=== PATIENT | female | born 1955 | race Caucasian/White ===

== ENCOUNTER 2018-11-13 07:04 | Inpatient (IN) | payer BC ==
--- NOTE | 2018-11-12 15:59 | HP ---
HISTORY AND PHYSICAL: DATE OF SURGERY: 11/13/18 DATE OF OFFICE VISIT: 11/12/18 SURGEON: Kulwant Young MD* (dictated by DELL Gonzalez). PROCEDURE: I and D of the right index finger. CHIEF COMPLAINT: Right second finger infection. HISTORY OF PRESENT ILLNESS: Ms. Kessler is a 62-year-old woman with an infection of the right index finger, which started approximately 9 days ago. She believes she got a piece of plastic or a splinter stuck in her finger. She has been on p.o. clindamycin for the last 3 days without any improvement. PAST MEDICAL HISTORY: Diabetes and high cholesterol. PAST SURGICAL HISTORY: Tubal ligation and a growth removal from her back. CURRENT MEDICATIONS: 1. Metformin. 2. Clindamycin. 3. Percocet. ALLERGIES: KEFLEX causing vomiting. FAMILY HISTORY: Cancer and diabetes. SOCIAL HISTORY: She is a 62-year-old female. She lives alone. She smokes half a pack to a pack of cigarettes a day. Denies the use of drugs. She uses alcohol rarely. REVIEW OF SYSTEMS: A complete 14-point review of systems was reviewed with the patient. It was all negative. She denies the history of DVT, PE, hepatitis, HIV or anesthesia problems. PHYSICAL EXAMINATION GENERAL: She is in no acute distress, nontoxic appearing. HEENT: Normocephalic, atraumatic. NECK: Supple. No palpable lymph nodes. PULMONARY: The lungs are clear to auscultation bilaterally. CARDIAC: Regular rate and rhythm. Strong S1 and S2. ABDOMEN: The abdomen is soft, nontender, and nondistended. NEUROLOGICAL: She is alert and oriented x3. MUSCULOSKELETAL: Right upper extremity, there is some purulent drainage from the right index finger. There have been 2 incisions made over the skin, one proximal and one distal to the DIP joint. There is mild erythema, significant swelling over the finger. There is no streaking into the hand or forearm. The finger is extremely tender to palpation. She is unable to flex at the PIP joint. She has a 2+ distal radius pulse. ASSESSMENT AND PLAN: Ms. Kessler is a 62-year-old female with an infection of her right index finger. It has been unimproved with p.o. clindamycin. We have recommended she go to the hospital today; however, she is unable to go today. She will be there at 7 a.m. for surgery tomorrow with Dr. Young. She is going to undergo an incision and drainage of her right index finger. She will remain n.p.o. after midnight. DELL GONZALEZ [id number]/[facility] #: [id number] KRYS
[~2018-11-13 07:04] MED LIST: Buffered Lidocaine 1% SYRIN* 1 ML/SYRINGE INTRADERM ONE; Lactated Ringers 1000 ML Bag* 1,000 ML IV SCH
[2018-11-13] MEDS ORDERED: Lidocaine 2% PF * 5 ML VIAL ONE (07:17)
[2018-11-13] MEDS ORDERED: Midazolam* 1 MG/ML 2 ML VIAL (2 MG) ONE (07:17)
[2018-11-13] MEDS ORDERED: Propofol* 10 MG/ML 20 ML BTL ONE (07:17)
[2018-11-13] MEDS ORDERED: fentaNYL* 50 MCG/ML 2 ML VIAL (100 MCG VIAL) ONE ×2 (07:18→10:28)
[2018-11-13] MEDS ORDERED: Buffered Lidocaine 1% SYRIN* 1 ML/SYRINGE INTRADERM ONE (07:18)
[2018-11-13] MEDS ORDERED: Clindamycin 900 MG IVPREMIX(* 900 MG/50 ML SDV IV ONE (07:18)
[2018-11-13] MEDS ORDERED: Bupivacaine 0.5%* 50 ML VIAL ONE (07:24)
[2018-11-13] MEDS ORDERED: Bacitracin INJECTION* 50,000 UNITS ONE (07:27)
[2018-11-13] MEDS ORDERED: fentaNYL* 50 MCG/ML 2 ML VIAL (100 MCG VIAL) IV PRN (07:54)
[2018-11-13] MEDS ORDERED: Naloxone* 0.4 MG/ML 1 ML VIAL IV PRN (07:54)
[2018-11-13] MEDS ORDERED: Acetaminophen TAB* 325 MG PO PRN (07:54)
[2018-11-13] MEDS ORDERED: DiMENhydriNATE IV* 50 MG/ML VIAL IV PUSH PRN (07:54)
[2018-11-13] MEDS ORDERED: oxyCODONE TAB* 5 MG TAB PO PRN (07:54)
[2018-11-13] MEDS ORDERED: EPHEDrine (Pressors)* 50 MG/ML VIAL ONE (08:19)
[2018-11-13] MEDS ORDERED: Metoclopramide IV* 5 MG/ML 2 ML VIAL ONE (09:01)
[2018-11-13] MEDS ORDERED: Ondansetron INJ* 2 MG/ML VIAL ONE (09:01)
[2018-11-13] MEDS ORDERED: Ketorolac INJ* 30 MG/ML 1 ML VIAL ONE (09:01)
[2018-11-13] MEDS ORDERED: Magnesium Hydroxide LIQ* 30 ML UDC PO PRN (09:28)
[2018-11-13] MEDS ORDERED: diPHENhydraMINE IV* 50 MG/ML 1 ml VIAL (BENADRYL) IV PRN (09:34)
[2018-11-13] MEDS ORDERED: traMADol TAB* 50 MG PO PRN (09:34)
[2018-11-13] MEDS ORDERED: Bisacodyl SUPP* 10 MG SUPP PR PRN (09:34)
[2018-11-13] MEDS ORDERED: Polyethylene Glycol 3350* 17 GM PACKET PO PRN (09:34)
[2018-11-13] MEDS ORDERED: Ondansetron INJ* 2 MG/ML VIAL IV PRN (09:34)
[2018-11-13] MEDS ORDERED: Ondansetron ODT TAB* 4 MG PO PRN (09:34)
[2018-11-13] MEDS ORDERED: Temazepam CAP* 15 MG PO PRN (09:34)
[2018-11-13] MEDS ORDERED: diPHENhydraMINE PO* 25 MG PO PRN (09:34)
[2018-11-13] MEDS ORDERED: Morphine 4 MG/ML VIAL (1 ml) 4 MG/ML VIAL IV PRN (09:34)
[2018-11-13] MEDS ORDERED: Insulin REGULAR(*) 1 UNITS UNIT ONE (09:48)
[2018-11-13] MEDS ORDERED: oxyCODONE TAB* 5 MG TAB ONE (09:57)
[2018-11-13] MEDS ORDERED: Acetaminophen TAB* 325 MG ONE (09:57)
[2018-11-13] MEDS: Lactated Ringers 1000 ML Bag* 1,000 ML IV SCH ×2 (11:03→23:27)
[2018-11-13] MEDS ORDERED: Morphine INJ* 2 MG/ML 1 ML SYRINGE (TWO MG - NEW SYRINGE VERSION) IV PRN (11:36)
[2018-11-13] MEDS: Acetaminophen TAB* 325 MG PO SCH ×2 (11:53→18:15)
[2018-11-13] MEDS ORDERED: Dextrose 50% Syringe 50 ML* 25 GM/50 ML SYRINGE IV PUSH PRN (12:36)
--- NOTE | 2018-11-13 13:24 | CONSULT ---
Subjective Date of Service: 11/13/18 Interval History: Kerri Kessler is a 62 yo female, [place] [facility] with concern for right index finger cellulitis and osteomyelitis. Kerri states that she was previously in [place] on vacation, where she first noticed the finger infection. She was treated in [place] but states they "never treated me for MRSA" and didn't receive MRSA treatment until she came back to [place]. She does not recall the original injury to the finger, stating she noticed a "papercut sized area" on her finger felt like there could have been "a sliver" like a splinter in there. From there, the finger worsened. She has been on PO clindamycin and is now on IV medication and is s/p I&D with washout. She denies any previous illness or other health concerns. She follows with nurse practitioner Sangita ceron Cobden, as well as Dr. Sands. Her only health history and concerns are her cholesterol and diabetes, which are mostly managed by diet. She states she will take a metformin if her FSBG is >150; usually only takes one a day. In regards to history of bipolar disorder, she reports that she was previously trialed on risperidone but states she read the medication insert and realized she had all the adverse symptoms listed, including fast heart rate and loss of breath. She has not taken this in several months. Denies taking Abilify at this time as well. Reports that she is sleeping well but gets up early because that was part of her job years ago. She also states her family worries about her bipolar, stating that she has been spending more money than usual. She says she' s living by herself for the first time and spending money on herself for once. Family History: Findings - Father - diabetes in multiple family members on dad' s side. Father of lung cancer Social History: Findings - Lives alone, has 3 grown children. Every day smoker x 30 years (quit for 5 years until left her), smokes 1/2 ppd Past Medical History: Findings - DM2, hypercholesterolemia, bipolar disorder, tubal ligation Review of Systems - Measurements Intake and Output: Intake and Output Last 24 Hours 11/11/18 11/12/18 11/13/18 11/14/18 06:59 06:59 06:59 06:59 Intake Total 1350 Balance 1350 Weight 140 lb Intake: IV Fluids 1150 CLINDAMYCIN 900MG 50ML 50 LR 1100 Oral 200 - Review of Systems Constitutional Symptoms: Negative: Weakness, Fever, Night Sweats Dermatology: Positive: Other - right finger abscess HEENT: Positive: Normal Eyes: Positive: Normal, Contacts or Glasses Negative: Change in Vision Thyroid: Positive: Normal Negative: Tremor, Constipation, Palpitations Pulmonary: Positive: Normal Negative: Cough, Wheezing, Shortness of Breath Cardiology: Positive: Normal Negative: Chest Pain, Shortness of Breath, Palpitations, Swelling of Ankles Gastroenterology: Negative: Abdominal Pain, Nausea, Vomiting Genital - Urinary: Negative: Dysuria, Hematuria, Polyuria Musculoskeletal: Negative: Arthritis, Low Back Pain Endocrinology: Positive: Diabetes Mellitus, Hyperglycemia Hematologic/Lymphatic: Negative: Anemia, Easy Bruising Neurology: Negative: Headache, Dizziness, Numbness\\Paresthesiae, Unexplained Weakness Psychiatry: Negative: Depression, Anxiety, Suicidal Ideation Objective Active Medications: Acetaminophen (Tylenol Tab*) 975 mg PO Q8H [facility] Last Admin: 11/13/18 11:53 Dose: 975 mg Bisacodyl (Dulcolax Supp*) 10 mg OH DAILY PRN PRN Reason: constipation Dextrose (D50w Syringe 50 Ml*) 12.5 gm IV PUSH .FOR FS < 60 - SS PRN PRN Reason: FS < 60 Diphenhydramine HCl (Benadryl Iv*) 25 mg IV Q6H PRN PRN Reason: itching Diphenhydramine HCl (Benadryl Po*) 25 mg PO Q6H PRN PRN Reason: itching Docusate Sodium (Colace Cap*) 100 mg PO BID [facility] Enoxaparin Sodium (Lovenox(*)) 40 mg SUBCUT Q24H [facility] Clindamycin HCl/Dextrose (Cleocin 600 Mg Ivpremix(*) Sdv) 600 mg in 50 mls @ 100 mls/hr IV Q8H [facility] Lactated Ringer's (Lactated Ringers 1000 Ml Bag*) 1,000 mls @ 100 mls/hr IV PER RATE [facility] Last Admin: 11/13/18 11:03 Dose: 100 mls/hr Insulin Human Lispro (Humalog*) 0 units SUBCUT AC [facility]; Protocol Lactulose (Lactulose*) 30 ml PO Q6H PRN PRN Reason: constipation Magnesium Hydroxide (Milk Of Magnesia Liq*) 30 ml PO Q6H PRN PRN Reason: constipation Morphine Sulfate (Morphine Inj (Syringe))*) 2 mg IV Q2H PRN PRN Reason: PAIN - SEVERE Ondansetron HCl (Zofran Inj*) 4 mg IV Q6H PRN PRN Reason: nausea Ondansetron HCl (Zofran Odt Tab*) 4 mg PO Q6H PRN PRN Reason: NAUSEA Oxycodone HCl (Roxycodone Tab*) 10 mg PO Q4H PRN PRN Reason: PAIN - MODERATE TO SEVERE Oxycodone/Acetaminophen (Percocet 5/325 Tab*) 1 tab PO Q4H PRN PRN Reason: PAIN - MILD Oxycodone/Acetaminophen (Percocet 5/325 Tab*) 2 tab PO Q4H PRN PRN Reason: PAIN - MILD TO MODERATE Polyethylene Glycol/Electrolytes (Miralax*) 17 gm PO DAILY PRN PRN Reason: Constipation Temazepam (Restoril Cap*) 15 mg PO BEDTIME PRN PRN Reason: INSOMNIA Tramadol HCl (Ultram*) 50 mg PO Q6H PRN PRN Reason: PAIN - MILD Vital Signs - 8 hr 11/13/18 11/13/18 11/13/18 07:31 07:32 09:20 Temperature 96.8 F Pulse Rate 82 73 101 Respiratory 18 Rate Blood Pressure 148/79 148/79 (mmHg) O2 Sat by Pulse 96 96 100 Oximetry 11/13/18 11/13/18 11/13/18 09:21 09:22 09:25 Temperature 96.8 F Pulse Rate 102 91 82 Respiratory 16 18 Rate Blood Pressure 145/100 143/97 126/90 (mmHg) O2 Sat by Pulse 100 100 100 Oximetry 11/13/18 11/13/18 11/13/18 09:30 09:35 10:00 Temperature Pulse Rate 88 80 80 Respiratory 22 21 Rate Blood Pressure 123/84 126/98 149/98 (mmHg) O2 Sat by Pulse 100 99 95 Oximetry 11/13/18 11/13/18 11/13/18 10:09 10:15 10:30 Temperature 96.8 F Pulse Rate 79 76 Respiratory 16 16 Rate Blood Pressure 139/93 125/84 (mmHg) O2 Sat by Pulse 95 96 Oximetry 11/13/18 11/13/18 11/13/18 10:41 11:00 12:15 Temperature 97 F 96.9 F Pulse Rate 81 84 Respiratory 16 18 16 Rate Blood Pressure 138/68 102/62 (mmHg) O2 Sat by Pulse 95 94 Oximetry Oxygen Devices in Use Now: None Appearance: Middle aged female, sitting up in bed, pleasant, NAD Eyes: No Scleral Icterus, PERRLA Ears/Nose/Mouth/Throat: Clear Oropharnyx, Mucous Membranes Moist Neck: NL Appearance and Movements; NL JVP Respiratory: Symmetrical Chest Expansion and Respiratory Effort, Clear to Auscultation Cardiovascular: NL Sounds; No Murmurs; No JVD, RRR, No Edema Abdominal: NL Sounds; No Tenderness; No Distention Lymphatic: No Cervical Adenopathy, No Auricular Adenopathy Extremities: No Clubbing, Cyanosis, - - right hand with molly bandage to index finger and hand. brisk cap refill and intact sensation and movement to hand and fingers Skin: No Rash or Ulcers Neurological: Alert and Oriented x 3, NL Muscle Strength and Tone Lines/Tubes/Other Access: Clean, Dry and Intact Peripheral IV Nutrition: Taking PO's Assessment/Plan - Billing Ms. Kessler is a 62 yo female with PMH significant for DM2, high cholesterol, and bipolar disorder (currently not on treatment), who presented to the ED on with concern for right finger cellulitis and abscess and is now s/p I&D with washout. Plan: 1. Right index finger cellulitis with abscess - management per orthopedics. Continue pain management, IV clindamycin. 2. Type 2 diabetes - Review of records show A1c of 7.1 back in August. Lab orders pending - will check A1c here. FSBG elevated in the presence of acute infection. Hold metformin and start Lispro SSI. Continue consistent carb/heart healthy diet. 3. High cholesterol - continue heart healthy diet 4. Bipolar disorder - appears stable at this time, and patient is appropriate. Recommend outpatient follow up with mental health. VTE: Per ortho, patient is on Lovenox Code status: Full code SDM/HCP: Son, Torrey Reyes Disposition: Per orthopedics Attending: Lana Drake
[2018-11-13] MEDS: oxyCODONE TAB* 5 MG TAB PO PRN ×3 (13:51→23:50)
[2018-11-13] MEDS: oxyCODONE/Acetamin 5/325 MG* TAB PO PRN ×2 (16:09→21:34)
[2018-11-13] MEDS ORDERED: Clindamycin 600 MG IVPREMIX(* 600 MG/50 ML SDV IV SCH (16:30)
[2018-11-13] MEDS: Vancomycin(*) 1,000 MG in NS 0.9% 250 ML* 250 ML IVPB SCH (17:00)
[2018-11-13] MEDS: Insulin LISPRO* 1 UNITS UNIT SUBCUT SCH (18:14)
[2018-11-13] MEDS: Docusate CAP* 100 MG PO SCH (21:16)
[2018-11-14] MEDS: Acetaminophen TAB* 325 MG PO SCH (01:51)
--- NOTE | 2018-11-14 02:24 | OP ---
OPERATIVE NOTE: DATE OF OPERATION: 11/13/18 DATE OF : [birth year] SURGEON: Dr. Kulwant Young. WAFER FAB TECHNICIAN: DELL Carney. A physician clinic assistant was required for the length of procedure for assistance with patient positionin g, retraction, and closure. ANESTHESIOLOGIST: Dr. Dede Hu. ANESTHESIA: General anesthesia. PRE-OP DIAGNOSES: Right index finger complex infection including a felon, a more proximal volar absc ess, as well as likely distal interphalangeal joint infection, and distal phalanx osteomyelitis. POST-OP DIAGNOSES: Right index finger complex infection including a neglected felon, fingertip pulp infection, more proximal volar soft tissue abscess, distal interphalangeal joint infection, and base of distal phalanx osteomyelitis. OPERATIVE PROCEDURE: 1. Incision, irrigation, debridement, and drainage right index fingertip, felon. 2. Incision, irrigation, debridement, and drainage right index finger volar subcutaneous and deep ab scess. 3. Incision, irrigation, debridement, and drainage right index finger distal interphalangeal joint i nfection with minimal debridement of distal phalanx osteomyelitis. ANTIBIOTICS: Clindamycin 900 mg IV provided after cultures were obtained. IV FLUIDS: See Anesthesia note. TOURNIQUET TIME: 37 minutes at 250 mmHg, right upper arm. UKXA-GI-AYYX TIME: 36 minutes. SPECIMEN: I obtained 2 sets of aerobic and anaerobic cultures, one from superficial tissue, volar fi ngertip, and the other from deep tissue. IRRIGATION FLUID UTILIZED: 6 L. COMPLICATIONS: None. ESTIMATED BLOOD LOSS: Minimal. INDICATIONS FOR PROCEDURE: The patient is a 62-year-old woman, with a right index finger infection t hat started approximately 10 days preoperatively, on 11/03/18. The patient was vague about whether tr auma preceded or did not precede her fingertip infection. However, she was seen at a hospital in [facility] and given oral antibiotics. She then proceeded to [facility] [place] department on late Thu night, early Thursday morning, and incisions in 2 locations overlying the distal phalanx and mi ddle phalanx were made with some drainage of pus. The patient is not particularly a good historian. See my clinic note from 11/11/18 for full details. I was given some more information regarding the history today, actually postoperatively, from the martha mejía's son. The patient's son clarified that the patient had been having some psychologic problems a fter a colonoscopy in July 2018. She was institutionalized at some point in [facility] sin ce then. The patient was then in custodial in [place] prior to her returning to [facility] i n the past week or so. The patient had neglected to mention those facts in clinic. The patient clearly needed a more aggressive thorough irrigation and debridement when I saw her clini c on 11/11/18. However, she had someone in her car and was not available for surgery that evening. Likewise, the operating rooms were full, I later found, that went until midnight. I had the patient continue oral antibiotics and soaks, see my partner, Dr. Mitchell, yesterday, and had the patient presen t to the hospital this morning for surgery. The patient was n.p.o. after midnight last night, presented to admission this morning at 7 a.m., and then proceeded to preoperative holding. History and physical have been done on both 's and Thursday's clinic visits. Discussed risks and potential complications including bleeding, infection, nerve or blood vessel inju ry, finger stiffness, need for revision surgery, need for amputation, persistence of infection. The patient opted to move forward with procedure. DESCRIPTION OF PROCEDURE: In preoperative holding, the patient signed a written consent. Operative finger was marked in the preoperative holding. The patient was taken back to the operating room, kep t on stretcher, sedated and intubated. Hand table was applied to the stretcher. The right upper ext remity was prepped and draped. Formal surgical time-out performed. Esmarch applied and tourniquet e levated to 250 mmHg. I inspected the incisions on the patient's fingertip. The location of these fingertip incisions unfo rtunately made a Silvana zigzag incision impossible at the distal end of the finger. It seems that pr ior incisions had been made in different locations so they would be offset. Unfortunately, they were close enough together that there was essentially an incision overlying both the distal phalanx and t he distal half of the middle phalanx that crossed the distal interphalangeal joint skin flexion creas e at a 90-degree angle. Nothing could be done about this. I noted that much of the skin had peeled off or the top layer of it. I continued these incisions for the skin, both distal and proximal. Proximally I was able to create a zigzag incision. I continued the incision just proximal to the MCP skin flexion crease. I dissected down to the distal phalanx as well as the flexor tendons. I took culture swabs as I star erik the dissection distally and then a second set when I reached bone. There was clear pus distally overlying the distal phalanx. There was none proximally. After taking culture swabs, I next irrigated with 3 L of fluid. I did start using cystoscopy tubing. Flexor tendons all looked in reasonable shape as did the pulleys. The bone distal to the flexor te ndon insertion was solid and showed no evidence of infection. I probed it with a [place] and my finger tip. Preoperative x-rays demonstrated possible infection of the volar base of the distal phalanx. Therefo re, at a minimum I wanted to enter the DIP joint. I incised the A5 kalin and likely some cruciate p ulley directly overlying the DIP joint. I incised this radially, but I had no intention of repairing them given the presence of infection. I next released some volar plate and capsule and probed into the DIP joint. There was certainly some murky-looking fluid there. I probed with [place]. There appea red to be some fracturing at the base of the distal phalanx. I was able to easily push the smallest of curettes up into the distal phalanx showing some degree of osteomyelitis. I irrigated multiple bl eeders into the DIP joint. I continued further debridement of the base of the distal phalanx but I held off on this because I di d not want to damage this joint further and predisposing to arthritis. I also did not want to cause a fracture in the bony insertion of the flexor tendon, FDP. Some more irrigation. I re-examined the finger pulp to see if there were any striae that held infect ion. There did not appear to be any. I placed some quarter-inch packing, iodoform, all along the length of the incision and had it exit melvin weaver. I closed the skin with simple stitches using 4-0 nylon suture. I closed these very loose distally an d slightly more tightly or with slightly more sutures proximally. I should state that prior to closin g the skin, I used scissors to cut off the top layer of delaminated skin around much of the distal en d of the finger that clearly would not be involved in any healing. Dropped tourniquet. I placed Adaptic, followed by 2x2's, followed by Kerlix, followed by Cobmario. I should state that the clindamycin 900 mg IV was given to the patient as soon as all cultures had be en obtained. The total amount of fluid that was used to wash out the finger was 6 L, this was into t he distal pulp of the felon, along the length of much of the flexor tendon sheaths, from just proxima l to the MCP flexion crease and the A1 and A2 pulleys, down to the A5 kalin and distal to that, as w ell as into the DIP joint and distal phalanx. The patient was awakened, extubated, and brought to the PACU. DISPOSITION: The patient was admitted postoperatively for IV antibiotics. Given the involvement of the DIP joint and likely the distal phalanx, as well as the complexity of this and it being neglected for a long period of time, something in the order of 10 days, IV antibiotics certainly seem appropri ate. We will get a formal ID consult from Dr. Reed on 11/15/18. The patient's pain will be controlled with oral and IV pain medication. As the patient is a diabetic, with apparently some serious psychiatric as well as possibly legal problems, we will get the hospitalist service to provid e management for those issues. Postoperatively, I thought I would order a full set of labs, chemistr ies, CBC, and coagulation markers, as well as a getting a hemoglobin A1c to check the patient's quali ty of blood glucose control. The patient's son postoperatively mentioned that her ammonia level has been high in recent months. So, we ordered a serum ammonia level and LFTs as well. I will plan on d oing a wound check tomorrow with a change of dressing. I anticipate slowly removing that packing in order of 1 cm per day and keeping an opening at the distal end of that incision to allow continued dr leo. [id number]/[facility] #: [id number]
[2018-11-14] MEDS: oxyCODONE/Acetamin 5/325 MG* TAB PO PRN ×4 (02:30→23:43)
[2018-11-14] MEDS: Vancomycin(*) 1,000 MG in NS 0.9% 250 ML* 250 ML IVPB SCH ×3 (04:28→21:10)
[2018-11-14] MEDS: oxyCODONE TAB* 5 MG TAB PO PRN ×2 (04:29→12:48)
[2018-11-14 05:29] LABS: Hematocrit 39 % (35-47); Hemoglobin 13.4 g/dL (12.0-16.0); Mean Platelet Volume 8.3 fL (7.4-10.4); Platelet Count 337 10^3/uL (150-450)
[2018-11-14] MEDS: Docusate CAP* 100 MG PO SCH ×2 (07:24→21:10)
[2018-11-14 07:55] LABS: BUN/Creatinine Ratio 10.9 (8-20); Calcium 9.9 mg/dL (8.6-10.3); EGFR Non-African American 93.4 (>60); Potassium 4.5 mmol/L (3.5-5.0)
[2018-11-14] MEDS: Insulin LISPRO* 1 UNITS UNIT SUBCUT SCH ×3 (08:39→16:27)
[2018-11-14] MEDS ORDERED: metFORMIN* 500 MG TAB PO SCH (09:00)
--- NOTE | 2018-11-14 10:24 | PN ---
Progress Note - Progress Note Date of Service: 11/14/18 SOAP: Subjective: Patient has some pain. Just vomited. Most of the labs ordered postop yesterday by Vanesa Jorgensen were not collected for some reason. Wound cultures grew MRSA and we switched her to Vancomycin IV. Objective: RUE: - Index finger swelling and some bruising - Sensation intact along radial and ulnar fingertip - Wound closing up distally - Patient can actively fully extend but is limited in active flexion. Although active composite flexion improved compared with preop/ - Tissues distally look poor quality, soupy and inflamed, although no purulence Microbiology 11/13/18 09:45 Finger Skin and Soft Tissue MRSA/MSSA (PCR - Final 11/13/18 09:45 Finger Gram Stain - Final Mrsa Positive S.aureus Positive 11/13/18 09:45 Finger Gram Stain - Final Selected Entries 11/14/18 11/14/18 04:18 07:34 Temperature 98.2 F 97.3 F Pulse Rate 63 Respiratory 18 Rate Blood Pressure 140/80 (mmHg) O2 Sat by Pulse 95 Oximetry Assessment: 1. POD 1 I&D subacute, neglected R index finger felon/abscess/infected DIP joint/ distal phalanx osteomyelitis 2. Recent psychiatric history with recent institutionalization and nursing home time; start of symptoms was ~ 11/03/18 while in nursing home in [place] Plan: - Continue Vancomycin IV - I removed the most distal stitch to allow wound to remain more rather than less open, allowing maximal drainage - Applied DSD - ID consult with Brianna Thursday - DSD daily with backing out of packing 1 cm per day - No soaks for now, though we will reconsider those at some point - Pending new labs today - We will follow physical exam and CRP
[2018-11-14 10:56] LABS: ABS Basophils 0.2 10^3/ul (0-0.2); ABS Eosinophils 0.7 10^3/ul (0-0.6); ABS Lymphocytes 2.1 10^3/ul (1.0-4.8); ABS Monocytes 0.8 10^3/ul (0-0.8); ABS Neutrophils 7.9 10^3/ul (1.5-7.7); Hematocrit 40 % (35-47); Hemoglobin 13.6 g/dL (12.0-16.0); Lymphocyte % 18.1 %; Mean Corpuscular HGB Conc 34 g/dL (31-36); Mean Corpuscular Hemoglobin 31 pg (27-31); Mean Corpuscular Volume 90 fL (80-97); Mean Platelet Volume 8.2 fL (7.4-10.4); Platelet Count 332 10^3/uL (150-450); Red Blood Count 4.38 10^6 /uL (3.70-4.87); Red Cell Distribution Width 14 % (10-15); White Blood Count 11.6 10^3/uL (3.5-10.8)
[2018-11-14] MEDS: Ketorolac INJ* 30 MG/ML 1 ML VIAL IV PUSH PRN ×2 (11:10→21:10)
[2018-11-14] MEDS: Enoxaparin(*) 40 MG/0.4 ML SYR SUBCUT SCH (11:11)
[2018-11-14 11:13] LABS: Albumin 3.3 g/dL (3.2-5.2); Albumin/Globulin Ratio 1.5 (1-3); C Reactive Protein 26.43 mg/L (<8.01); Globulin 2.2 g/dL (2-4); INR 1.09 (0.82-1.09); Indirect Bilirubin 0.3 mg/dL (0.3-1.0); Total Bilirubin 0.5 mg/dL (0.2-1.0); Total Protein 5.5 g/dL (6.4-8.9)
[2018-11-14] MEDS ORDERED: Vancomycin per Pharmacy* NOTE FOLLOW UP PRN (11:31)
[2018-11-14 12:28] LABS: Erythrocyte Sed Rate 8 mm/Hr (0-29)
[2018-11-15] MEDS: Ketorolac INJ* 30 MG/ML 1 ML VIAL IV PUSH PRN ×4 (03:14→22:09)
[2018-11-15 04:44] LABS: Mean Platelet Volume 8.2 fL (7.4-10.4); Platelet Count 308 10^3/uL (150-450)
[2018-11-15] MEDS ORDERED: Vancomycin Trough Check NOTE FOLLOW UP ONE (05:00)
[2018-11-15] MEDS: Vancomycin(*) 1,000 MG in NS 0.9% 250 ML* 250 ML IVPB SCH ×2 (05:36→16:51)
[2018-11-15] MEDS: oxyCODONE/Acetamin 5/325 MG* TAB PO PRN ×2 (05:36→19:13)
[2018-11-15] MEDS: Docusate CAP* 100 MG PO SCH ×2 (07:44→21:20)
[2018-11-15] MEDS: metFORMIN* 500 MG TAB PO SCH (07:44)
[2018-11-15 09:05] LABS: Hematocrit 38 % (35-47); Hemoglobin 12.7 g/dL (12.0-16.0); Mean Corpuscular HGB Conc 34 g/dL (31-36); Mean Corpuscular Hemoglobin 31 pg (27-31); Mean Corpuscular Volume 91 fL (80-97); Red Blood Count 4.13 10^6 /uL (3.70-4.87); Red Cell Distribution Width 14 % (10-15); White Blood Count 7.9 10^3/uL (3.5-10.8)
[2018-11-15] MEDS: Insulin LISPRO* 1 UNITS UNIT SUBCUT SCH ×3 (09:23→16:55)
--- NOTE | 2018-11-15 09:58 | PN ---
Progress Note - Progress Note Date of Service: 11/15/18 SOAP: Subjective: []Pt seen at bedside, her right index finger remains painful unchanged from previous. She denies feeling of fever or chills. Denies CP, SOB, dizziness, nausea. Objective: []General: NAD, appears comfortable RUE: right index finger swollen, some sloughing skin distally. Incision is CDI and well approximated proximally, packing pulled 1 cm, distally wound is soupy, there was some purulence on the packing but unable to express any additional discharge. Sensation intact to light touch, light touch is nonpainul. Patient can actively fully extend but remains limited in active flexion. Capillary refill less than two seconds distally. Assessment: [] right index finger infection. Cultures show +MSSA and MRSA Plan: [] ID consult placed, continue vancomycin for now Continue DSD daily with backing out of packing 1 cm per day No soaks for now, though we will reconsider those at some point We will follow physical exam and CRP. CRP and WBC trending down Vital Signs Temp 98.4 F 11/15/18 08:02 Pulse 68 11/15/18 08:02 Resp 16 11/15/18 08:02 BP 132/78 11/15/18 08:02 Pulse Ox 93 11/15/18 08:02 Intake & Output 11/14/18 11/15/18 11/15/18 18:59 06:59 18:59 Intake Total 2254 750 Output Total 3350 3075 350 Balance -1096 -2325 -350 Intake: IV Fluids 1034 LR 1034 IVPB 250 ABX - VANCOMYCIN 250 Oral 1220 500 Output: Urine 3350 3075 350 Other: # Bowel Movements 0 Laboratory Last Values WBC 7.9 10^3/uL (3.5-10.8) 11/15/18 04:30 RBC 4.13 10^6 /uL (3.70-4.87) 11/15/18 04:30 Hgb 12.7 g/dL (12.0-16.0) 11/15/18 04:30 Hct 38 % (35-47) 11/15/18 04:30 MCV 91 fL (80-97) 11/15/18 04:30 MCH 31 pg (27-31) 11/15/18 04:30 MCHC 34 g/dL (31-36) 11/15/18 04:30 RDW 14 % (10-15) 11/15/18 04:30 Plt Count 308 10^3/uL (150-450) 11/15/18 04:30 MPV 8.2 fL (7.4-10.4) 11/15/18 04:30 Neut % (Auto) 67.9 % 11/14/18 10:46 Lymph % (Auto) 18.1 % 11/14/18 10:46 [place] % (Auto) 6.6 % 11/14/18 10:46 Eos % (Auto) 6.0 % 11/14/18 10:46 Baso % (Auto) 1.4 % 11/14/18 10:46 Absolute Neuts (auto) 7.9 10^3/ul (1.5-7.7) H 11/14/18 10:46 Absolute Lymphs (auto) 2.1 10^3/ul (1.0-4.8) 11/14/18 10:46 Absolute Monos (auto) 0.8 10^3/ul (0-0.8) 11/14/18 10:46 Absolute Eos (auto) 0.7 10^3/ul (0-0.6) H 11/14/18 10:46 Absolute Basos (auto) 0.2 10^3/ul (0-0.2) 11/14/18 10:46 Absolute Nucleated RBC 0.0 10^3/ul 11/14/18 10:46 Nucleated RBC % 0.0 11/14/18 10:46 ESR 8 mm/Hr (0-29) 11/14/18 10:46 INR (Anticoag Therapy) 1.09 (0.82-1.09) 11/14/18 10:46 Sodium 137 mmol/L (135-145) 11/14/18 07:28 Potassium 4.5 mmol/L (3.5-5.0) 11/14/18 07:28 Chloride 105 mmol/L (101-111) 11/14/18 07:28 Carbon Dioxide 29 mmol/L (22-32) 11/14/18 07:28 Anion Gap 3 mmol/L (2-11) 11/14/18 07:28 BUN 7 mg/dL (6-24) 11/14/18 07:28 Creatinine 0.64 mg/dL (0.51-0.95) 11/14/18 07:28 Est GFR ( Amer) 113.0 (>60) 11/14/18 07:28 Est GFR (Non-Af Amer) 93.4 (>60) 11/14/18 07:28 BUN/Creatinine Ratio 10.9 (8-20) 11/14/18 07:28 Glucose 138 mg/dL (70-100) H 11/14/18 07:28 POC Glucose (mg/dL) 131 mg/dL (70-100) H 11/15/18 07:47 Hemoglobin A1c 7.2 % (4.0-5.6) H 11/14/18 10:46 Calcium 9.9 mg/dL (8.6-10.3) 11/14/18 07:28 Total Bilirubin 0.50 mg/dL (0.2-1.0) 11/14/18 10:46 Direct Bilirubin 0.20 mg/dL (0.03-0.18) H 11/14/18 10:46 Indirect Bilirubin 0.3 mg/dL (0.3-1.0) 11/14/18 10:46 AST 22 U/L (13-39) 11/14/18 10:46 ALT 19 U/L (7-52) 11/14/18 10:46 Alkaline Phosphatase 65 U/L (34-104) 11/14/18 10:46 Ammonia 45 mcmol/L (16-53) 11/14/18 10:46 C-Reactive Protein 24.73 mg/L (<8.01) H 11/15/18 04:30 Total Protein 5.5 g/dL (6.4-8.9) L 11/14/18 10:46 Albumin 3.3 g/dL (3.2-5.2) 11/14/18 10:46 Globulin 2.2 g/dL (2-4) 11/14/18 10:46 Albumin/Globulin Ratio 1.5 (1-3) 11/14/18 10:46 Vancomycin Trough 16.1 mcg/mL 11/15/18 04:30
[2018-11-15] MEDS: oxyCODONE TAB* 5 MG TAB PO PRN (11:45)
[2018-11-15] MEDS: Enoxaparin(*) 40 MG/0.4 ML SYR SUBCUT SCH (11:48)
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
[2018-11-16] MEDS: oxyCODONE/Acetamin 5/325 MG* TAB PO PRN ×4 (00:53→18:01)
[2018-11-16] MEDS: Ketorolac INJ* 30 MG/ML 1 ML VIAL IV PUSH PRN ×2 (04:13→15:23)
[2018-11-16] MEDS: Vancomycin(*) 1,000 MG in NS 0.9% 250 ML* 250 ML IVPB SCH ×2 (04:13→18:01)
[2018-11-16 07:04] LABS: Mean Platelet Volume 8.4 fL (7.4-10.4); Platelet Count 292 10^3/uL (150-450); White Blood Count 8.7 10^3/uL (3.5-10.8)
[2018-11-16] MEDS: metFORMIN* 500 MG TAB PO SCH (07:37)
[2018-11-16] MEDS: Insulin LISPRO* 1 UNITS UNIT SUBCUT SCH ×3 (07:37→18:02)
[2018-11-16] MEDS: Docusate CAP* 100 MG PO SCH ×2 (07:37→21:37)
--- NOTE | 2018-11-16 12:31 | PN ---
Progress Note - Progress Note Date of Service: 11/16/18 SOAP: Subjective: []Pt seen at bedside. She is feeling well without fever or chills. Denies CP, SOB, dizziness, nausea. Finger is painful with motion. Objective: []General: NAD, appears comfortable RUE: right index finger edematous though swelling is decreased from yesterday. Incision is CDI and well approximated proximally, packing pulled. Distally wound remains soupy, again there was purulence on the packing but unable to express any additional purulence. Sensation intact to light touch aside from most distal tip which is insensate. Patient can actively fully extend but remains limited in active flexion, though flexion slightly improved from yesterday. Capillary refill less than two seconds distally. Assessment: []right index finger infection. Cultures show +MSSA and MRSA Plan: [] ID abx recommendation: vancomycin IV trough goal 15-20. Anticipate for 2-3 weeks Warm soapy soaks 15 min TID We will follow physical exam and labs: CRP trending down, WBC wnl, afebrile Needs PICC placed. Dr Young will see patient tomorrow, possible DC home tomorrow if wound is improving Vital Signs Temp 97.7 F 11/16/18 11:21 Pulse 57 11/16/18 11:21 Resp 16 11/16/18 11:48 BP 144/66 11/16/18 11:21 Pulse Ox 95 11/16/18 11:21 Intake & Output 11/15/18 11/16/18 11/16/18 18:59 06:59 18:59 Intake Total 230 840 240 Output Total 2050 950 350 Balance -1820 -110 -110 Intake: Oral 230 840 240 Output: Urine 2050 950 350 Other: Estimated Void Medium Date of Last Bowel 11/15/2018 Movement # Bowel Movements 0 Estimated Stool Amount Large # Voids 1 Laboratory Last Values WBC 8.7 10^3/uL (3.5-10.8) 11/16/18 06:50 RBC 4.13 10^6 /uL (3.70-4.87) 11/15/18 04:30 Hgb 12.7 g/dL (12.0-16.0) 11/15/18 04:30 Hct 38 % (35-47) 11/15/18 04:30 MCV 91 fL (80-97) 11/15/18 04:30 MCH 31 pg (27-31) 11/15/18 04:30 MCHC 34 g/dL (31-36) 11/15/18 04:30 RDW 14 % (10-15) 11/15/18 04:30 Plt Count 292 10^3/uL (150-450) 11/16/18 06:50 MPV 8.4 fL (7.4-10.4) 11/16/18 06:50 Neut % (Auto) 67.9 % 11/14/18 10:46 Lymph % (Auto) 18.1 % 11/14/18 10:46 [place] % (Auto) 6.6 % 11/14/18 10:46 Eos % (Auto) 6.0 % 11/14/18 10:46 Baso % (Auto) 1.4 % 11/14/18 10:46 Absolute Neuts (auto) 7.9 10^3/ul (1.5-7.7) H 11/14/18 10:46 Absolute Lymphs (auto) 2.1 10^3/ul (1.0-4.8) 11/14/18 10:46 Absolute Monos (auto) 0.8 10^3/ul (0-0.8) 11/14/18 10:46 Absolute Eos (auto) 0.7 10^3/ul (0-0.6) H 11/14/18 10:46 Absolute Basos (auto) 0.2 10^3/ul (0-0.2) 11/14/18 10:46 Absolute Nucleated RBC 0.0 10^3/ul 11/14/18 10:46 Nucleated RBC % 0.0 11/14/18 10:46 ESR 8 mm/Hr (0-29) 11/14/18 10:46 INR (Anticoag Therapy) 1.09 (0.82-1.09) 11/14/18 10:46 Sodium 137 mmol/L (135-145) 11/14/18 07:28 Potassium 4.5 mmol/L (3.5-5.0) 11/14/18 07:28 Chloride 105 mmol/L (101-111) 11/14/18 07:28 Carbon Dioxide 29 mmol/L (22-32) 11/14/18 07:28 Anion Gap 3 mmol/L (2-11) 11/14/18 07:28 BUN 7 mg/dL (6-24) 11/14/18 07:28 Creatinine 0.64 mg/dL (0.51-0.95) 11/14/18 07:28 Est GFR ( Amer) 113.0 (>60) 11/14/18 07:28 Est GFR (Non-Af Amer) 93.4 (>60) 11/14/18 07:28 BUN/Creatinine Ratio 10.9 (8-20) 11/14/18 07:28 Glucose 138 mg/dL (70-100) H 11/14/18 07:28 POC Glucose (mg/dL) 142 mg/dL (70-100) H 11/16/18 12:25 Hemoglobin A1c 7.2 % (4.0-5.6) H 11/14/18 10:46 Calcium 9.9 mg/dL (8.6-10.3) 11/14/18 07:28 Total Bilirubin 0.50 mg/dL (0.2-1.0) 11/14/18 10:46 Direct Bilirubin 0.20 mg/dL (0.03-0.18) H 11/14/18 10:46 Indirect Bilirubin 0.3 mg/dL (0.3-1.0) 11/14/18 10:46 AST 22 U/L (13-39) 11/14/18 10:46 ALT 19 U/L (7-52) 11/14/18 10:46 Alkaline Phosphatase 65 U/L (34-104) 11/14/18 10:46 Ammonia 45 mcmol/L (16-53) 11/14/18 10:46 C-Reactive Protein 12.18 mg/L (<8.01) H 11/16/18 06:50 Total Protein 5.5 g/dL (6.4-8.9) L 11/14/18 10:46 Albumin 3.3 g/dL (3.2-5.2) 11/14/18 10:46 Globulin 2.2 g/dL (2-4) 11/14/18 10:46 Albumin/Globulin Ratio 1.5 (1-3) 11/14/18 10:46 Vancomycin Trough 16.1 mcg/mL 11/15/18 04:30
[2018-11-16] MEDS: Enoxaparin(*) 40 MG/0.4 ML SYR SUBCUT SCH (12:56)
[2018-11-16] MEDS: oxyCODONE TAB* 5 MG TAB PO PRN (21:37)
[2018-11-17] MEDS: oxyCODONE/Acetamin 5/325 MG* TAB PO PRN ×5 (00:39→20:11)
[2018-11-17] MEDS ORDERED: Vancomycin Trough Check NOTE FOLLOW UP ONE (05:00)
[2018-11-17 05:18] LABS: Mean Platelet Volume 8.3 fL (7.4-10.4); Platelet Count 289 10^3/uL (150-450); White Blood Count 8.6 10^3/uL (3.5-10.8)
[2018-11-17 05:36] LABS: C Reactive Protein 9.35 mg/L (<8.01); EGFR African American 126.6 (>60); EGFR Non-African American 104.7 (>60)
[2018-11-17 05:51] LABS: Vancomycin Trough 12.7 mcg/mL
[2018-11-17] MEDS: Vancomycin(*) 1,000 MG in NS 0.9% 250 ML* 250 ML IVPB SCH (06:17)
[2018-11-17] MEDS: Insulin LISPRO* 1 UNITS UNIT SUBCUT SCH ×3 (07:56→17:43)
[2018-11-17] MEDS: Docusate CAP* 100 MG PO SCH ×2 (08:05→20:12)
[2018-11-17] MEDS: metFORMIN* 500 MG TAB PO SCH (08:05)
[2018-11-17] MEDS ORDERED: Senna TAB PO PRN (08:44)
[2018-11-17] MEDS ORDERED: Magnesium CITRATE* 300 ML BTL PO ONE (08:44)
--- NOTE | 2018-11-17 08:44 | PN ---
Subjective Date of Service: 11/17/18 Interval History: Pt c/o constipation and nausea this aM, denies abd pain. Las t BM 2 days ago Family History: Findings - Father - diabetes in multiple family members on dad' s side. Father of lung cancer Social History: Findings - Lives alone, has 3 grown children. Every day smoker x 30 years (quit for 5 years until left her), smokes 1/2 ppd Past Medical History: Findings - DM2, hypercholesterolemia, bipolar disorder, tubal ligation Objective Active Medications: Bisacodyl (Dulcolax Supp*) 10 mg MA DAILY PRN PRN Reason: constipation Last Admin: 11/15/18 19:14 Dose: 10 mg Dextrose (D50w Syringe 50 Ml*) 12.5 gm IV PUSH .FOR FS < 60 - SS PRN PRN Reason: FS < 60 Diphenhydramine HCl (Benadryl Iv*) 25 mg IV Q6H PRN PRN Reason: itching Diphenhydramine HCl (Benadryl Po*) 25 mg PO Q6H PRN PRN Reason: itching Docusate Sodium (Colace Cap*) 100 mg PO BID [facility] Last Admin: 11/17/18 08:05 Dose: 100 mg Enoxaparin Sodium (Lovenox(*)) 40 mg SUBCUT Q24H [facility] Last Admin: 11/16/18 12:56 Dose: 40 mg Vancomycin HCl 1,000 mg/ (Sodium Chloride) 250 mls @ 166.667 mls/hr IVPB Q12H [facility]ILY Stop: 11/17/18 09:00 Last Admin: 11/17/18 06:17 Dose: 166.667 mls/hr Vancomycin HCl 1,250 mg/ (Sodium Chloride) 250 mls @ 166.667 mls/hr IVPB Q12H [facility] Insulin Human Lispro (Humalog*) 0 units SUBCUT AC [facility]; Protocol Last Admin: 11/17/18 07:56 Dose: Not Given Ketorolac Tromethamine (Toradol Inj*) 30 mg IV PUSH Q6H PRN PRN Reason: PAIN Last Admin: 11/16/18 15:23 Dose: 30 mg Lactulose (Lactulose*) 30 ml PO Q6H PRN PRN Reason: constipation Last Admin: 11/15/18 07:44 Dose: 30 ml Magnesium Hydroxide (Milk Of Magnesia Liq*) 30 ml PO Q6H PRN PRN Reason: constipation Metformin HCl (Glucophage*) 500 mg PO DAILY [facility] Last Admin: 11/17/18 08:05 Dose: 500 mg Morphine Sulfate (Morphine Inj (Syringe))*) 2 mg IV Q2H PRN PRN Reason: PAIN - SEVERE Ondansetron HCl (Zofran Inj*) 4 mg IV Q6H PRN PRN Reason: nausea Ondansetron HCl (Zofran Odt Tab*) 4 mg PO Q6H PRN PRN Reason: NAUSEA Last Admin: 11/16/18 21:44 Dose: 4 mg Oxycodone HCl (Roxycodone Tab*) 10 mg PO Q4H PRN PRN Reason: PAIN - MODERATE TO SEVERE Last Admin: 11/16/18 21:37 Dose: 10 mg Oxycodone/Acetaminophen (Percocet 5/325 Tab*) 1 tab PO Q4H PRN PRN Reason: PAIN - MILD Last Admin: 11/15/18 05:36 Dose: 1 tab Oxycodone/Acetaminophen (Percocet 5/325 Tab*) 2 tab PO Q4H PRN PRN Reason: PAIN - MILD TO MODERATE Last Admin: 11/17/18 05:27 Dose: 2 tab Pharmacy Consult (Vancomycin Per Pharmacy*) 1 note FOLLOW UP . PRN PRN Reason: PER PROTOCOL Polyethylene Glycol/Electrolytes (Miralax*) 17 gm PO DAILY PRN PRN Reason: Constipation Temazepam (Restoril Cap*) 15 mg PO BEDTIME PRN PRN Reason: INSOMNIA Tramadol HCl (Ultram*) 50 mg PO Q6H PRN PRN Reason: PAIN - MILD Vital Signs - 8 hr 11/17/18 11/17/18 11/17/18 00:44 05:00 05:27 Temperature 96.8 F 98.3 F Pulse Rate 75 68 Respiratory 16 16 17 Rate Blood Pressure 132/60 128/58 (mmHg) O2 Sat by Pulse 95 93 Oximetry 11/17/18 11/17/18 11/17/18 05:33 07:29 08:00 Temperature 98.3 F Pulse Rate 54 Respiratory 17 16 18 Rate Blood Pressure 110/62 (mmHg) O2 Sat by Pulse 93 Oximetry Oxygen Devices in Use Now: None Appearance: 62 yo F in nAD, aAOx3 Eyes: No Scleral Icterus, PERRLA Ears/Nose/Mouth/Throat: NL Teeth, Lips, Gums, Mucous Membranes Moist Neck: NL Appearance and Movements; NL JVP, Trachea Midline Respiratory: Symmetrical Chest Expansion and Respiratory Effort, Clear to Auscultation Cardiovascular: NL Sounds; No Murmurs; No JVD, RRR Abdominal: NL Sounds; No Tenderness; No Distention Lymphatic: No Cervical Adenopathy Extremities: No Clubbing, Cyanosis, - - R index finger in dressings-not removed Skin: No Nodules or Sclerosis Neurological: Alert and Oriented x 3, NL Muscle Strength and Tone Result Diagrams: 11/17/18 05:13 11/17/18 05:13 Microbiology and Other Data: Microbiology 11/13/18 09:45 Anaerobic Culture - Preliminary Wound - Right Index 11/13/18 09:45 Gram Stain - Final Finger Wound Culture - Preliminary MRSA 11/13/18 09:45 Anaerobic Culture - Preliminary Wound - Right Index 11/13/18 09:45 Skin and Soft Tissue MRSA/MSSA (PCR - Final Finger Mrsa Positive S.aureus Positive Gram Stain - Final Wound Culture - Preliminary MRSA Assess/Plan/Problems-Billing Ms. Kessler is a 62 yo female with PMH significant for DM2, high cholesterol, and bipolar disorder (currently not on treatment), who presented to the ED on with concern for right finger cellulitis and abscess and is now s/p I&D with washout. Plan: 1. Right index finger cellulitis with abscess MRSA +- management per orthopedics. Continue pain management, IV Vancomycin 2. Type 2 diabetes - Review of records show A1c of 7.1 back in August. Cont metformin and Lispro SSI. 3. High cholesterol - continue heart healthy diet 4. Bipolar disorder - appears stable at this time, and patient is appropriate. Recommend outpatient follow up with mental health. 5. constipation and nausea: cont Zofran prn, will tx with Mag citrate today VTE: Per ortho, patient is on Lovenox Code status: Full code SDM/HCP: [facility] Disposition: Per orthopedics
[2018-11-17] MEDS ORDERED: Docusate CAP* 100 MG PO SCH (09:00)
--- NOTE | 2018-11-17 11:32 | PN ---
Progress Note - Progress Note Date of Service: 11/17/18 SOAP: Subjective: CC: Right 2nd finger infection HPI: Ms. Kessler is a 62 yo female with PMH significant for DM2, and HLD. Denies fever , chills, shortness of breath, nausea, vomiting, or diarrhea. She had her PICC line placed this morning. She is soaking the right hand 3 times daily. Objective: Vital Signs - 8 hr 11/17/18 11/17/18 11/17/18 07:29 08:00 09:37 Temperature 98.3 F Pulse Rate 54 Respiratory 16 20 18 Rate Blood Pressure 110/62 (mmHg) O2 Sat by Pulse 93 Oximetry Physical Exam: General: NAD, sitting up in bed Neurological: Alert and Oriented x4 HEENT: No thrush, moist MM Cardiovascular: Heart rate regular, no murmur Respiratory: Lung sounds clear bilateral Abdominal: Bowel sounds present; ABD soft, non tender and non distended Musckuloskeletal: Able to fully extend the right 2nd finger, but limited flexion Skin: Right 2nd finger with edema, incision is well approximated proximally. There is a wound distal with moist tissue midline that appears to be dark colored eschar. Laboratory Results - last 24 hr 11/17/18 11/17/18 11/17/18 05:13 05:13 07:49 WBC 8.6 Plt Count 289 MPV 8.3 BUN 10 Creatinine 0.58 Est GFR ( Amer) 126.6 Est GFR (Non-Af Amer) 104.7 POC Glucose (mg/dL) 112 H C-Reactive Protein 9.35 H Vancomycin Trough 12.7 Microbiology 11/13/18 09:45 Anaerobic Culture - Final Wound - Right Index 11/13/18 09:45 Gram Stain - Final Finger Wound Culture - Final MRSA 11/13/18 09:45 Anaerobic Culture - Final Wound - Right Index 11/13/18 09:45 Skin and Soft Tissue MRSA/MSSA (PCR - Final Finger Mrsa Positive S.aureus Positive Gram Stain - Final Wound Culture - Final MRSA Assessment: 1. Right 2nd finger soft tissue abscess and acute osteomyelitis. S/P I+D of the right 2nd finger, POD #4. Culture with MRSA. CRP is trending down. No leukocytosis and afebrile. 2. CEPHALEXIN allergy, caused dizziness 3. DM2. Plan: Continue Vancomycin, trough goal 15-20. Day 4/28. Weekly labs while on IV ABX: Vanco trough, CBC, CMP, and CRP. Follow up with ID outpatient in 2 weeks after discharge.
[2018-11-17] MEDS: Enoxaparin(*) 40 MG/0.4 ML SYR SUBCUT SCH (11:58)
--- NOTE | 2018-11-17 12:03 | PN ---
Progress Note - Progress Note Date of Service: 11/17/18 SOAP: Subjective: []Pt seen at bedside today. She feels well and denies fever, chills, CP, SOB, dizziness, nausea. Objective: [] General: NAD, appears comfortable RUE: right index finger with again decreasing edema. Incision is CDI and well approximated proximally. Distally wound is drying though still soupy macerated tissue midline, unable to express any purulence. Sensation intact to light touch aside from most distal tip which is insensate. Patient can actively fully extend but remains limited in active flexion, though flexion is again slightly improved from yesterday. Capillary refill less than two seconds distally on the dorsum, unable to eval cap refill on palmar surface Assessment: []right index finger infection. Cultures show +MSSA and MRSA Plan: [] ID abx recommendation: vancomycin IV trough goal 15-20. Anticipate for 2-3 weeks Warm soapy soaks 15 min TID We will follow physical exam and labs: CRP trending down, WBC wnl, afebrile PICC placed today Dr Young will see this evening Vital Signs Temp 98.8 F 11/17/18 11:33 Pulse 58 11/17/18 11:33 Resp 18 11/17/18 12:08 BP 110/60 11/17/18 11:33 Pulse Ox 95 11/17/18 11:33 Intake & Output 11/16/18 11/17/18 11/17/18 18:59 06:59 18:59 Intake Total 740 1010 319 Output Total 1150 1600 450 Balance -410 -590 -131 Intake: IV Fluids 319 ABX - VANCOMYCIN 294 NS (0.9%) 25 Oral 740 1010 Output: Urine 1150 1600 450 Other: # Bowel Movements 1 0 Estimated Stool Amount Small Laboratory Last Values WBC 8.6 10^3/uL (3.5-10.8) 11/17/18 05:13 RBC 4.13 10^6 /uL (3.70-4.87) 11/15/18 04:30 Hgb 12.7 g/dL (12.0-16.0) 11/15/18 04:30 Hct 38 % (35-47) 11/15/18 04:30 MCV 91 fL (80-97) 11/15/18 04:30 MCH 31 pg (27-31) 11/15/18 04:30 MCHC 34 g/dL (31-36) 11/15/18 04:30 RDW 14 % (10-15) 11/15/18 04:30 Plt Count 289 10^3/uL (150-450) 11/17/18 05:13 MPV 8.3 fL (7.4-10.4) 11/17/18 05:13 Neut % (Auto) 67.9 % 11/14/18 10:46 Lymph % (Auto) 18.1 % 11/14/18 10:46 [place] % (Auto) 6.6 % 11/14/18 10:46 Eos % (Auto) 6.0 % 11/14/18 10:46 Baso % (Auto) 1.4 % 11/14/18 10:46 Absolute Neuts (auto) 7.9 10^3/ul (1.5-7.7) H 11/14/18 10:46 Absolute Lymphs (auto) 2.1 10^3/ul (1.0-4.8) 11/14/18 10:46 Absolute Monos (auto) 0.8 10^3/ul (0-0.8) 11/14/18 10:46 Absolute Eos (auto) 0.7 10^3/ul (0-0.6) H 11/14/18 10:46 Absolute Basos (auto) 0.2 10^3/ul (0-0.2) 11/14/18 10:46 Absolute Nucleated RBC 0.0 10^3/ul 11/14/18 10:46 Nucleated RBC % 0.0 11/14/18 10:46 ESR 8 mm/Hr (0-29) 11/14/18 10:46 INR (Anticoag Therapy) 1.09 (0.82-1.09) 11/14/18 10:46 Sodium 137 mmol/L (135-145) 11/14/18 07:28 Potassium 4.5 mmol/L (3.5-5.0) 11/14/18 07:28 Chloride 105 mmol/L (101-111) 11/14/18 07:28 Carbon Dioxide 29 mmol/L (22-32) 11/14/18 07:28 Anion Gap 3 mmol/L (2-11) 11/14/18 07:28 BUN 10 mg/dL (6-24) 11/17/18 05:13 Creatinine 0.58 mg/dL (0.51-0.95) 11/17/18 05:13 Est GFR ( Amer) 126.6 (>60) 11/17/18 05:13 Est GFR (Non-Af Amer) 104.7 (>60) 11/17/18 05:13 BUN/Creatinine Ratio 10.9 (8-20) 11/14/18 07:28 Glucose 138 mg/dL (70-100) H 11/14/18 07:28 POC Glucose (mg/dL) 111 mg/dL (70-100) H 11/17/18 11:59 Hemoglobin A1c 7.2 % (4.0-5.6) H 11/14/18 10:46 Calcium 9.9 mg/dL (8.6-10.3) 11/14/18 07:28 Total Bilirubin 0.50 mg/dL (0.2-1.0) 11/14/18 10:46 Direct Bilirubin 0.20 mg/dL (0.03-0.18) H 11/14/18 10:46 Indirect Bilirubin 0.3 mg/dL (0.3-1.0) 11/14/18 10:46 AST 22 U/L (13-39) 11/14/18 10:46 ALT 19 U/L (7-52) 11/14/18 10:46 Alkaline Phosphatase 65 U/L (34-104) 11/14/18 10:46 Ammonia 45 mcmol/L (16-53) 11/14/18 10:46 C-Reactive Protein 9.35 mg/L (<8.01) H 11/17/18 05:13 Total Protein 5.5 g/dL (6.4-8.9) L 11/14/18 10:46 Albumin 3.3 g/dL (3.2-5.2) 11/14/18 10:46 Globulin 2.2 g/dL (2-4) 11/14/18 10:46 Albumin/Globulin Ratio 1.5 (1-3) 11/14/18 10:46 Vancomycin Trough 12.7 mcg/mL 11/17/18 05:13 <Sana Dueñas - Last Filed: 11/17/18 12:49> - Progress Note SOAP: Subjective: Pain decreased. Objective: Right index finger: - decreased swelling and tenderness - distal wound is open, poor quality tissue but improved from previous - no purulence - Flexion AROM/PROM much improved (and much less painful) at MP, PIP, DIP joints but still limited without full composite flexion CRP 9, almost normal Assessment: As above Plan: - Continue IV antiobiotics - Wound checks. - Continue soaks, unless it is seems they are hindering healing - See me in clinic next week <Kulwant Young - Last Filed: 11/17/18 20:23>
[2018-11-17] MEDS: Vancomycin(*) 1,250 MG in NS 0.9% 250 ML* 250 ML IVPB SCH (16:02)
[2018-11-17] MEDS: oxyCODONE TAB* 5 MG TAB PO PRN (16:20)
[2018-11-18] MEDS: oxyCODONE/Acetamin 5/325 MG* TAB PO PRN ×3 (03:40→12:59)
[2018-11-18] MEDS: Vancomycin(*) 1,250 MG in NS 0.9% 250 ML* 250 ML IVPB SCH ×2 (03:41→14:08)
[2018-11-18 05:50] LABS: Mean Platelet Volume 8.6 fL (7.4-10.4); Platelet Count 269 10^3/uL (150-450); White Blood Count 8.1 10^3/uL (3.5-10.8)
[2018-11-18] MEDS: Insulin LISPRO* 1 UNITS UNIT SUBCUT SCH ×2 (07:46→12:20)
[2018-11-18] MEDS: metFORMIN* 500 MG TAB PO SCH (07:51)
[2018-11-18] MEDS: Docusate CAP* 100 MG PO SCH (07:51)
--- NOTE | 2018-11-18 10:45 | PN ---
Progress Note - Progress Note Date of Service: 11/18/18 SOAP: Subjective: resting comfortably with no significant complaints of pain Objective: Vital Signs Temp Pulse Resp BP Pulse Ox 98.4 F 58 18 152/70 95 11/18/18 07:36 11/18/18 07:36 11/18/18 09:53 11/18/18 07:36 11/18/18 08:00 Laboratory Last Values WBC 8.1 10^3/uL (3.5-10.8) 11/18/18 05:36 RBC 4.13 10^6 /uL (3.70-4.87) 11/15/18 04:30 Hgb 12.7 g/dL (12.0-16.0) 11/15/18 04:30 Hct 38 % (35-47) 11/15/18 04:30 MCV 91 fL (80-97) 11/15/18 04:30 MCH 31 pg (27-31) 11/15/18 04:30 MCHC 34 g/dL (31-36) 11/15/18 04:30 RDW 14 % (10-15) 11/15/18 04:30 Plt Count 269 10^3/uL (150-450) 11/18/18 05:36 MPV 8.6 fL (7.4-10.4) 11/18/18 05:36 Neut % (Auto) 67.9 % 11/14/18 10:46 Lymph % (Auto) 18.1 % 11/14/18 10:46 [place] % (Auto) 6.6 % 11/14/18 10:46 Eos % (Auto) 6.0 % 11/14/18 10:46 Baso % (Auto) 1.4 % 11/14/18 10:46 Absolute Neuts (auto) 7.9 10^3/ul (1.5-7.7) H 11/14/18 10:46 Absolute Lymphs (auto) 2.1 10^3/ul (1.0-4.8) 11/14/18 10:46 Absolute Monos (auto) 0.8 10^3/ul (0-0.8) 11/14/18 10:46 Absolute Eos (auto) 0.7 10^3/ul (0-0.6) H 11/14/18 10:46 Absolute Basos (auto) 0.2 10^3/ul (0-0.2) 11/14/18 10:46 Absolute Nucleated RBC 0.0 10^3/ul 11/14/18 10:46 Nucleated RBC % 0.0 11/14/18 10:46 ESR 8 mm/Hr (0-29) 11/14/18 10:46 INR (Anticoag Therapy) 1.09 (0.82-1.09) 11/14/18 10:46 Sodium 137 mmol/L (135-145) 11/14/18 07:28 Potassium 4.5 mmol/L (3.5-5.0) 11/14/18 07:28 Chloride 105 mmol/L (101-111) 11/14/18 07:28 Carbon Dioxide 29 mmol/L (22-32) 11/14/18 07:28 Anion Gap 3 mmol/L (2-11) 11/14/18 07:28 BUN 10 mg/dL (6-24) 11/17/18 05:13 Creatinine 0.58 mg/dL (0.51-0.95) 11/17/18 05:13 Est GFR ( Amer) 126.6 (>60) 11/17/18 05:13 Est GFR (Non-Af Amer) 104.7 (>60) 11/17/18 05:13 BUN/Creatinine Ratio 10.9 (8-20) 11/14/18 07:28 Glucose 138 mg/dL (70-100) H 11/14/18 07:28 POC Glucose (mg/dL) 117 mg/dL (70-100) H 11/18/18 07:46 Hemoglobin A1c 7.2 % (4.0-5.6) H 11/14/18 10:46 Calcium 9.9 mg/dL (8.6-10.3) 11/14/18 07:28 Total Bilirubin 0.50 mg/dL (0.2-1.0) 11/14/18 10:46 Direct Bilirubin 0.20 mg/dL (0.03-0.18) H 11/14/18 10:46 Indirect Bilirubin 0.3 mg/dL (0.3-1.0) 11/14/18 10:46 AST 22 U/L (13-39) 11/14/18 10:46 ALT 19 U/L (7-52) 11/14/18 10:46 Alkaline Phosphatase 65 U/L (34-104) 11/14/18 10:46 Ammonia 45 mcmol/L (16-53) 11/14/18 10:46 C-Reactive Protein 6.30 mg/L (<8.01) 11/18/18 05:36 Total Protein 5.5 g/dL (6.4-8.9) L 11/14/18 10:46 Albumin 3.3 g/dL (3.2-5.2) 11/14/18 10:46 Globulin 2.2 g/dL (2-4) 11/14/18 10:46 Albumin/Globulin Ratio 1.5 (1-3) 11/14/18 10:46 Vancomycin Trough 12.7 mcg/mL 11/17/18 05:13 incision: c/d/i PE: 2+ DR pulse, intact sensation, NVI Assessment: s/p I&D right index finger Plan: 1) continue IV abx- PICC placed yesterday 2) 3xday warm water soaks and dressing changes 3) Home today; f/u with Hector early next week
[2018-11-18] MEDS: Enoxaparin(*) 40 MG/0.4 ML SYR SUBCUT SCH (12:12)
--- NOTE | 2018-11-18 12:18 | DS ---
DISCHARGE SUMMARY: DATE OF ADMISSION: 11/12/18 DATE OF DISCHARGE: 11/18/18 SURGEON: Kulwant Young MD.* (DICTATED BY DELL GONZALEZ) PRINCIPAL DIAGNOSIS: Right index finger infection. DISCHARGE DIAGNOSIS: Right index finger infection. DISCHARGE DISPOSITION: Stable. Discharged to home. HISTORY OF PRESENT ILLNESS: Ms. Kessler is a 62-year-old female who was admitted directly from our clinic for her right finger infection on 11/12/18 and underwent I and D on 11/13/18. HOSPITAL COURSE: Ms. Kessler is a 62-year-old female. She underwent an I and D of her right index finger on 11/13/[address] Young. She was then placed on IV antibiotics. Cultures came back MRSA positive. She was placed on Lovenox for DVT prophylaxis. Her hospital course was unremarkable. At the time of discharge, she was afebrile and vital sings were stable. DISCHARGE MEDICATIONS: 1. Vancomycin 1250 mg twice a day. 2. She was given Humalog, metformin 500 mg daily, and [place] 5/325 every 8 hours as needed. PHYSICAL EXAM UPON DISCHARGE: Her wound was clean and dry. She has a 2+ distal pulse, intact sensation. She was neurovascularly intact and ambulating without difficulty. DISCHARGE INSTRUCTIONS: She was discharged home with a PICC line. She was going to continue her IV vanco every 12 hours. We have given her [place] 5/325 to take every 8 hours as needed for pain. She will continue 3 times a day warm soaks with dressing changes and she will see Dr. Young back early next week for a followup visit. DELL GONZALEZ [id number]/[facility] #: [id number] [facility] HOSPITALJen
[2018-11-18 16:00] VITALS: BP 150/72
== END 2018-11-18 16:20 | disposition home health service (06) | DRG 364 ==
LOC: OR 07:04 → MERGE 10:52 → SSU 10:52
PROVIDERS: ADMIT Orthopaedic Surgery; ATTEND Orthopaedic Surgery
PROC: 0PBT0ZZ Excision of Right Finger Phalanx, Open Approach (ICD-10-PCS; 2018-11-13)
PROC: 0P9T0ZZ Drainage of Right Finger Phalanx, Open Approach (ICD-10-PCS; principal; 2018-11-13 08:00)
DX: L02.511 Cutaneous abscess of right hand (principal); M86.141 Other acute osteomyelitis, right hand; M00.9 Pyogenic arthritis, unspecified; M86.9 Osteomyelitis, unspecified; E11.69 Type 2 diabetes mellitus with other specified complication; F31.9 Bipolar disorder, unspecified; E78.00 Pure hypercholesterolemia, unspecified; B95.62 Methicillin resistant Staphylococcus aureus infection as the cause of diseases classified elsewhere; L03.011 Cellulitis of right finger; E78.5 Hyperlipidemia, unspecified; F17.210 Nicotine dependence, cigarettes, uncomplicated; Z80.9 Family history of malignant neoplasm, unspecified; Z79.84 Long term (current) use of oral hypoglycemic drugs; Z79.899 Other long term (current) drug therapy; Z88.8 Allergy status to other drugs, medicaments and biological substances; Z83.3 Family history of diabetes mellitus
CPT/HCPCS: 36415; 80048; 80076; 80202; 82140; 82565; 83036; 84520; 85014; 85018; 85025; 85027; 85048; 85049; 85610; 85652; 86140; 87070; 87073; 87077; 87186; 87205; 87640; 87641; A9270-GY; C1751; G8987-GO-CI; G8988-GO-CI; G8989-GO-CI; J1650; J1885; J2250; J2405; J2704; J2765; J3010; J3370; J3490

== ENCOUNTER 2018-12-15 22:51 | Emergency (ER) | payer MEDICARE, BC ==
--- OUTSIDE RECORDS SUMMARY | 2018-12-15 23:07 | XMS REPORT | Continuity of Care Document ---
:1955 External Reference #:[id number] Author Name Yarely Wick Care Team Providers Name Role Phone Carlos Sands MD Primary Care Physician Unavailable Payers Date Identification Numbers Payment Provider Subscriber Policy Number: [id number] Medicare Kerri Kessler PayID: [id number] [address] [place] [address] Policy Number: [id number] [employer] Kerri Kessler PayID: [id number] [address] [address] [place] [address] Problems Active Problems Provider Date Cellulitis of right finger Kulwant Young MD Onset: 11/11/2018 Family History Date Family Member(s) Observation Comments General Cancer Social History Type Date Description Comments Sex Unknown Lives With Alone Occupation Retired Tobacco Use Start: Unknown Patient is a current smoker, smokes every day Smoking Status Reviewed: 12/15/18 Patient is a current smoker, smokes every day Exercise Type/Frequency Exercises regularly Allergies, Adverse Reactions, Alerts Active Allergies Reaction Severity Comments Date Cephalexin vomitting 11/11/2018 Medications Active Medications SIG Qnty Indications Ordering Provider Date Ibuprofen 1 by mouth twice 30tabs Fritz Jorgensen 12/14/2018 400mg Tablets daily as needed Farrah Kirk for pain [place] 1 tabs by mouth 21tabs Kulwant Falcon 11/18/2018 5-325mg Tablets every 8 hours as MD Hector needed for pain Metformin HCL take 1 tablet by Unknown 1000mg mouth twice a day Tablets with meals Vancomycin HCL 1250mg iv every Unknown 1gm 12 hours through [facility] History Medications Oxycodone-Acetaminophen Unknown - 12/06/2018 5-325mg Tablets Clindamycin HCL 300mg Unknown - 2018 Capsules Vital Signs Date Vital Result Comment 12/15/2018 1:37pm Height 64 inches 5'4" Weight 140.00 lb Heart Rate 88 /min BP Systolic 160 mmHg BP Diastolic 88 mmHg Respiratory Rate 12 /min Pain Level 10 BMI (Body Mass Index) 24.0 kg/m2 12/07/2018 9:44am Height 64 inches 5'4" Weight 143.50 lb Heart Rate 72 /min BP Systolic Sitting 148 mmHg BP Diastolic Sitting 72 mmHg Respiratory Rate 14 /min Body Temperature 98.9 F BMI (Body Mass Index) 24.6 kg/m2 11/30/2018 9:52am Height 64 inches 5'4" Weight 144.00 lb BP Systolic 134 mmHg BP Diastolic 62 mmHg Respiratory Rate 18 /min Body Temperature 98.7 F Pain Level 4 BMI (Body Mass Index) 24.7 kg/m2 11/23/2018 10:31am Height 64 inches 5'4" Heart Rate 70 /min BP Systolic 124 mmHg BP Diastolic 70 mmHg Respiratory Rate 18 /min Body Temperature 97.9 F Pain Level 4 11/12/2018 2:11pm Height 64 inches 5'4" Weight 144.00 lb Heart Rate 84 /min BP Systolic 138 mmHg BP Diastolic 70 mmHg Respiratory Rate 22 /min Body Temperature 99.4 F Pain Level 7 BMI (Body Mass Index) 24.7 kg/m2 11/11/2018 2:19pm Height 64 inches 5'4" Weight 148.69 lb Heart Rate 75 /min BP Systolic 138 mmHg BP Diastolic 70 mmHg Respiratory Rate 16 /min Body Temperature 97.5 F Pain Level 7 BMI (Body Mass Index) 25.5 kg/m2 Results Test Date Facility Test Result H/L Range Note CBC Auto Diff 2018 [facility] White Blood 7.8 10^3/uL N 3.5-10.[address] [place] [address] [phone] Red Blood Count 4.93 10^6/uL High 3.70-4.87 Hemoglobin 15.2 g/dL N 12.0-16.0 Hematocrit 45 % N 35-47 Mean Corpuscular Volume 92 fL N 80-97 Mean Corpuscular Hemoglobin 31 pg N 27-31 Mean Corpuscular HGB Conc 34 g/dL N 31-36 Red Cell Distribution Width 14 % N 10-15 Platelet Count 277 10^3/uL N 150-450 Mean Platelet Volume 9.6 fL N 7.4-10.4 Abs Neutrophils 3.5 10^3/uL N 1.5-7.7 Abs Lymphocytes 2.6 10^3/uL N 1.0-4.8 Abs Monocytes 1.0 10^3/uL High 0-0.8 Abs Eosinophils 0.4 10^3/uL N 0-0.6 Abs Basophils 0.2 10^3/uL N 0-0.2 Abs Nucleated RBC 0.0 10^3/uL Granulocyte % 45.4 % Lymphocyte % 33.7 % Monocyte % 13.1 % Eosinophil % 4.9 % Basophil % 2.9 % Nucleated Red Blood Cells % 0.1 Comp Metabolic Panel 2018 [facility] Sodium 137 mmol/L N 135-[address] [place] [address] [phone] Potassium 4.1 mmol/L N 3.5-5.0 Chloride 103 mmol/L N 101-111 Co2 Carbon Dioxide 24 mmol/L N 22-32 Anion Gap 10 mmol/L N 2-11 Glucose 175 mg/dL High 70-100 Blood Urea Nitrogen 8 mg/dL N 6-24 Creatinine 0.66 mg/dL N 0.51-0.95 BUN/Creatinine Ratio 12.1 N 8-20 Calcium 10.2 mg/dL N 8.6-10.3 Total Protein 6.6 g/dL N 6.4-8.9 Albumin 4.6 g/dL N 3.2-5.2 Globulin 2.0 g/dL N 2-4 Albumin/Globulin Ratio 2.3 N 1-3 Total Bilirubin 0.70 mg/dL N 0.2-1.0 Alkaline Phosphatase 89 U/L N 34-104 Alt 13 U/L N 7-52 Ast 16 U/L N 13-39 Egfr Non- 89.9 >60 Egfr 108.8 >60 1 Laboratory test 2018 [facility] Vancomycin Trough 13.7 g /mL [address] [place] [address] [phone] C Reactive Protein 4.28 mg/L N <8.01 Comp Metabolic Panel 12/06/2018 [facility] Sodium 136 mmol/L N 135-145 [address] [place] [address] [phone] Potassium 4.6 mmol/L N 3.5-5.0 Chloride 106 mmol/L N 101-111 Co2 Carbon Dioxide 23 mmol/L N 22-32 Anion Gap 7 mmol/L N 2-11 Glucose 257 mg/dL High 70-100 Blood Urea Nitrogen 10 mg/dL N 6-24 Creatinine 0.59 mg/dL N 0.51-0.95 BUN/Creatinine Ratio 16.9 N 8-20 Calcium 10.0 mg/dL N 8.6-10.3 Total Protein 5.9 g/dL Low 6.4-8.9 Albumin 3.9 g/dL N 3.2-5.2 Globulin 2.0 g/dL N 2-4 Albumin/Globulin Ratio 2.0 N 1-3 Total Bilirubin 0.70 mg/dL N 0.2-1.0 Alkaline Phosphatase 87 U/L N 34-104 Alt 17 U/L N 7-52 Ast 17 U/L N 13-39 Egfr Non- 102.6 >60 Egfr 124.2 >60 3 Laboratory test 12/06/2018 [facility] Vancomycin Trough 12.1 g /mL [address] [place] [address] [phone] C Reactive Protein 2.64 mg/L N <8.01 CBC Auto Diff 12/06/2018 [facility] White Blood 4.9 10^3/uL N 3.5-10.[address] [place] [address] [phone] Red Blood Count 5.01 10^6/uL High 3.70-4.87 Hemoglobin 15.7 g/dL N 12.0-16.0 Hematocrit 46 % N 35-47 Mean Corpuscular Volume 91 fL N 80-97 Mean Corpuscular Hemoglobin 31 pg N 27-31 Mean Corpuscular HGB Conc 35 g/dL N 31-36 Red Cell Distribution Width 14 % N 10-15 Platelet Count 198 10^3/uL N 150-450 Mean Platelet Volume 10.1 fL N 7.4-10.4 Abs Neutrophils 2.1 10^3/uL N 1.5-7.7 Abs Lymphocytes 1.5 10^3/uL N 1.0-4.8 Abs Monocytes 0.7 10^3/uL N 0-0.8 Abs Eosinophils 0.5 10^3/uL N 0-0.6 Abs Basophils 0.1 10^3/uL N 0-0.2 Abs Nucleated RBC 0.0 10^3/uL Granulocyte % 43.3 % Lymphocyte % 30.3 % Monocyte % 13.7 % Eosinophil % 9.8 % Basophil % 2.9 % Nucleated Red Blood Cells % 0.0 CBC Auto Diff 11/29/2018 [facility] White Blood 8.4 10^3/uL N 3.5-10.[address] [place] [address] [phone] Red Blood Count 5.11 10^6/uL High 3.70-4.87 Hemoglobin 15.6 g/dL N 12.0-16.0 Hematocrit 47 % N 35-47 Mean Corpuscular Volume 92 fL N 80-97 Mean Corpuscular Hemoglobin 31 pg N 27-31 Mean Corpuscular HGB Conc 33 g/dL N 31-36 Red Cell Distribution Width 14 % N 10-15 Platelet Count 236 10^3/uL N 150-450 Mean Platelet Volume 10.4 fL N 7.4-10.4 Abs Neutrophils 5.4 10^3/uL N 1.5-7.7 Abs Lymphocytes 2.0 10^3/uL N 1.0-4.8 Abs Monocytes 0.5 10^3/uL N 0-0.8 Abs Eosinophils 0.3 10^3/uL N 0-0.6 Abs Basophils 0.2 10^3/uL N 0-0.2 Abs Nucleated RBC 0.0 10^3/uL Granulocyte % 64.0 % Lymphocyte % 24.1 % Monocyte % 5.9 % Eosinophil % 4.0 % Basophil % 2.0 % Nucleated Red Blood Cells % 0.1 Comp Metabolic Panel 11/29/2018 [facility] Sodium 136 mmol/L N 135-[address] [place] [address] [phone] Potassium 4.6 mmol/L N 3.5-5.0 Chloride 104 mmol/L N 101-111 Co2 Carbon Dioxide 25 mmol/L N 22-32 Anion Gap 7 mmol/L N 2-11 Glucose 214 mg/dL High 70-100 Blood Urea Nitrogen 7 mg/dL N 6-24 Creatinine 0.49 mg/dL Low 0.51-0.95 BUN/Creatinine Ratio 14.3 N 8-20 Calcium 9.9 mg/dL N 8.6-10.3 Total Protein 6.0 g/dL Low 6.4-8.9 Albumin 3.9 g/dL N 3.2-5.2 Globulin 2.1 g/dL N 2-4 Albumin/Globulin Ratio 1.9 N 1-3 Total Bilirubin 0.60 mg/dL N 0.2-1.0 Alkaline Phosphatase 86 U/L N 34-104 Alt 13 U/L N 7-52 Ast 15 U/L N 13-39 Egfr Non- 127.1 >60 Egfr 153.8 >60 5 Laboratory test 11/29/2018 [facility] Vancomycin Trough 11.6 g /mL [address] [place] [address] [phone] C Reactive Protein 1.23 mg/L N <8.01 CBC Auto Diff 11/22/2018 [facility] White Blood 9.0 10^3/uL N 3.5-10.[address] [place] [address] [phone] Red Blood Count 4.86 10^6/uL N 3.70-4.87 Hemoglobin 14.8 g/dL N 12.0-16.0 Hematocrit 45 % N 35-47 Mean Corpuscular Volume 92 fL N 80-97 Mean Corpuscular Hemoglobin 31 pg N 27-31 Mean Corpuscular HGB Conc 33 g/dL N 31-36 Red Cell Distribution Width 14 % N 10-15 Platelet Count 284 10^3/uL N 150-450 Mean Platelet Volume 10.0 fL N 7.4-10.4 Abs Neutrophils 5.7 10^3/uL N 1.5-7.7 Abs Lymphocytes 2.0 10^3/uL N 1.0-4.8 Abs Monocytes 0.8 10^3/uL N 0-0.8 Abs Eosinophils 0.3 10^3/uL N 0-0.6 Abs Basophils 0.2 10^3/uL N 0-0.2 Abs Nucleated RBC 0.0 10^3/uL Granulocyte % 63.6 % Lymphocyte % 22.1 % Monocyte % 8.4 % Eosinophil % 3.8 % Basophil % 2.1 % Nucleated Red Blood Cells % 0.1 Comp Metabolic Panel 11/22/2018 [facility] Sodium 138 mmol/L N 135-145 [address] [place] [address] [phone] Potassium 4.4 mmol/L N 3.5-5.0 Chloride 106 mmol/L N 101-111 Co2 Carbon Dioxide 24 mmol/L N 22-32 Anion Gap 8 mmol/L N 2-11 Glucose 125 mg/dL High 70-100 Blood Urea Nitrogen 4 mg/dL Low 6-24 Creatinine 0.60 mg/dL N 0.51-0.95 BUN/Creatinine Ratio 6.7 Low 8-20 Calcium 10.4 mg/dL High 8.6-10.3 Total Protein 6.4 g/dL N 6.4-8.9 Albumin 4.1 g/dL N 3.2-5.2 Globulin 2.3 g/dL N 2-4 Albumin/Globulin Ratio 1.8 N 1-3 Total Bilirubin 0.50 mg/dL N 0.2-1.0 Alkaline Phosphatase 77 U/L N 34-104 Alt 24 U/L N 7-52 Ast 20 U/L N 13-39 Egfr Non- 100.6 >60 Egfr 121.8 >60 7 Laboratory test 11/22/2018 [facility] Vancomycin Trough 13.0 g /mL finding [address] [place] [address] [phone] C Reactive Protein 2.39 mg/L N <8.01 Laboratory test 11/13/2018 [facility] Point of Care 202 mg/dL High 70-100 8 finding [address] [facility] [place] [address] [phone] Laboratory test 11/13/2018 [facility] Point of Care 178 mg/dL High 70-100 9 finding [address] [place] [address] [phone] 1 Because ethnic data is not always readily available, this report includes an eGFR for both -Americans and non- Americans. The National Kidney Disease Education Program (NKDEP) does not endorse the use of the MDRD equation for patients that are not between the ages of 18 and 70, are , have extremes of body size, muscle mass, or nutritional status, or are non- or non-. According to the National Kidney Foundation, irrespective of diagnosis, the stage of the disease is based on the level of kidney function: Stage Description GFR(mL/min/1.73 m(2)) 1 Kidney damage with normal or decreased GFR 90 2 Kidney damage with mild decrease in GFR 60-89 3 Moderate decrease in GFR 30-59 4 Severe decrease in GFR 15-29 5 Kidney failure <15 (or dialysis) 2 15-20 for HCAP, VAP, Osteomyelitis, Endocarditis, Meningitis 10-15 for All Other Infections 3 Because ethnic data is not always readily available, this report includes an eGFR for both -Americans and non- Americans. The National Kidney Disease Education Program (NKDEP) does not endorse the use of the MDRD equation for patients that are not between the ages of 18 and 70, are , have extremes of body size, muscle mass, or nutritional status, or are non- or non-. According to the National Kidney Foundation, irrespective of diagnosis, the stage of the disease is based on the level of kidney function: Stage Description GFR(mL/min/1.73 m(2)) 1 Kidney damage with normal or decreased GFR 90 2 Kidney damage with mild decrease in GFR 60-89 3 Moderate decrease in GFR 30-59 4 Severe decrease in GFR 15-29 5 Kidney failure <15 (or dialysis) 4 15-20 for HCAP, VAP, Osteomyelitis, Endocarditis, Meningitis 10-15 for All Other Infections 5 Because ethnic data is not always readily available, this report includes an eGFR for both -Americans and non- Americans. The National Kidney Disease Education Program (NKDEP) does not endorse the use of the MDRD equation for patients that are not between the ages of 18 and 70, are , have extremes of body size, muscle mass, or nutritional status, or are non- or non-. According to the National Kidney Foundation, irrespective of diagnosis, the stage of the disease is based on the level of kidney function: Stage Description GFR(mL/min/1.73 m(2)) 1 Kidney damage with normal or decreased GFR 90 2 Kidney damage with mild decrease in GFR 60-89 3 Moderate decrease in GFR 30-59 4 Severe decrease in GFR 15-29 5 Kidney failure <15 (or dialysis) 6 15-20 for HCAP, VAP, Osteomyelitis, Endocarditis, Meningitis 10-15 for All Other Infections 7 Because ethnic data is not always readily available, this report includes an eGFR for both -Americans and non- Americans. The National Kidney Disease Education Program (NKDEP) does not endorse the use of the MDRD equation for patients that are not between the ages of 18 and 70, are , have extremes of body size, muscle mass, or nutritional status, or are non- or non-. According to the National Kidney Foundation, irrespective of diagnosis, the stage of the disease is based on the level of kidney function: Stage Description GFR(mL/min/1.73 m(2)) 1 Kidney damage with normal or decreased GFR 90 2 Kidney damage with mild decrease in GFR 60-89 3 Moderate decrease in GFR 30-59 4 Severe decrease in GFR 15-29 5 Kidney failure <15 (or dialysis) 8 Mental Health Technician: [id number] Mental Health Technician: [id number] Procedures Date Code Description Status 11/13/2018 00824 Arthrotomy,W/Expolr,Drainage,Or Removal Foreign Completed Interphalan JT 11/13/2018 83457 Arthrotomy,W/Expolr,Drainage,Or Removal Foreign Completed Interphalan JT 11/13/2018 58504 Drainage Of Finger Abscess;Complicated Eg Felon Completed 11/13/2018 32627 Drainage Of Finger Abscess;Complicated Eg Felon Completed Encounters Type Date Location Provider Dx Diagnosis Office Visit 12/07/2018 [facility] Barry Jorgensen L03.011 Cellulitis of 9:50a Infectious Farrah Kirk right finger Diseases M86.141 Other acute osteomyelitis, right hand 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, right hand Office Visit 11/13/2018 [facility] Leonor L03.011 Cellulitis of 10:35a roscoe Starks NP right finger Hospitalists E11.9 Type 2 diabetes mellitus without complications E78.5 Hyperlipidemia, unspecified F31.9 Bipolar disorder, unspecified Office Visit 11/12/2018 2:00p Orthopedic Lorenza Mitchell L03.011 Cellulitis of Services Of Farrah right finger Arian M79.644 Pain in right finger(s) Office Visit 11/11/2018 Orthopedic Kulwant Falcon L03.011 Cellulitis of 1:45p Services Of Arian Young MD right finger Office Visit 08/28/2018 [facility] Nurys Chavez MD M79.605 Pain in left leg 11:34a roscoe Starks Hospitalists R60.0 Localized edema Plan of Treatment Future Appointment(s):12/21/2018 10:50 am - Fritz Kirk M.D. at [facility] For Infectious Cabhdqhu14/17/2019 - Kulwant Young, MDM86.141 Other acute osteomyelitis, right handFollow up:Follow up: 2 weeks Continue soaks in warm soapy water. 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
--- OUTSIDE RECORDS SUMMARY | 2018-12-15 23:07 | XMS REPORT | Continuity of Care Document ---
:1955 External Reference #:[id number] Author Name Carine Gonzalez Care Team Providers Name Role Phone Carlos Sands MD Primary Care Physician Unavailable Payers Date Identification Numbers Payment Provider Subscriber Policy Number: [id number] Medicare Kerri Kessler PayID: [id number] [address] [place] [address] Policy Number: [id number] BS Facets Kerri Kessler PayID: [id number] [address] [address] [place] [address] Problems Active Problems Provider Date Cellulitis of right finger Kulwant Young MD Onset: 11/11/2018 Family History Date Family Member(s) Observation Comments General Cancer Social History Type Date Description Comments Sex Unknown Lives With Alone Occupation Retired Tobacco Use Start: Unknown Patient is a current smoker, smokes every day Smoking Status Reviewed: 11/30/18 Patient is a current smoker, smokes every day Exercise Type/Frequency Exercises regularly Allergies, Adverse Reactions, Alerts Active Allergies Reaction Severity Comments Date Cephalexin vomitting 11/11/2018 Medications Active Medications SIG Qnty Indications Ordering Provider Date [place] 1 tabs by mouth 21tabs Kulwant Falcon 11/18/2018 5-325mg Tablets every 8 hours as MD Hector needed for pain Oxycodone-Acetaminoph Unknown en 5-325mg Tablets Clindamycin HCL Unknown 300mg Capsules Metformin HCL take 1 tablet by Unknown 1000mg mouth twice a day Tablets with meals Vancomycin HCL 1250mg iv every Unknown 1gm 12 hours through [facility] end date 12/10 per [facility] orders Vital Signs Date Vital Result Comment 11/30/2018 9:52am Height 64 inches 5'4" Weight [...] Result H/L Range Note CBC Auto Diff 11/29/2018 [facility] White Blood 8.4 10^3/uL N 3.5-10.[address] [place] [address] [phone] Red Blood Count 5.11 10^6/uL High 3.70-4.87 [...] Cells % 0.1 Comp Metabolic Panel 11/29/2018 [facility] Sodium 136 mmol/L N 135-[address] [place] [address] [phone] Potassium 4.6 mmol/L N 3.5-5.0 Chloride 104 [...] Egfr Non- 127.1 >60 Egfr 153.8 >60 1 Laboratory test 11/29/2018 [facility] Vancomycin Trough 11.6 g /mL [address] [place] [address] [phone] C Reactive Protein 1.23 mg/L N <8.01 CBC Auto Diff 11/22/2018 [facility] White Blood 9.0 10^3/uL N 3.5-10.[address] [place] [address] [phone] Red Blood Count 4.86 10^6/uL N 3.70-4.87 [...] Cells % 0.1 Comp Metabolic Panel 11/22/2018 [facility] Sodium 138 mmol/L N 135-[address] [place] [address] [phone] Potassium 4.4 mmol/L N 3.5-5.0 Chloride 106 [...] Egfr Non- 100.6 >60 Egfr 121.8 >60 3 Laboratory test 11/22/2018 [facility] Vancomycin Trough 13.0 g /mL finding [address] [place] [address] [phone] C Reactive Protein 2.39 mg/L N <8.01 Laboratory test 11/13/2018 [facility] Point of Care 202 mg/dL High 70-100 [address] [place] [address] [phone] Laboratory test 11/13/2018 [facility] Point of Care 178 mg/dL High 70-100 [address] [place] [address] [phone] 1 Because ethnic data is not always [...] 5 Kidney failure <15 (or dialysis) 4 Power Builder Developer: [id number] 5 Power Builder Developer: [id number] Procedures Date Code Description Status 11/13/2018 37711 Arthrotomy,W/Expolr,Drainage,Or Removal Foreign Completed Interphalan JT 11/13/2018 73307 Arthrotomy,W/Expolr,Drainage,Or Removal Foreign Completed Interphalan JT 11/13/2018 73037 Drainage Of Finger Abscess;Complicated Eg Felon Completed 11/13/2018 34411 Drainage Of Finger Abscess;Complicated Eg Fellorene Completed Encounters Type Date Location Provider Dx Diagnosis Office Visit 11/17/2018 [facility] Kellie Mckeonjasshawn L03.011 Cellulitis of 12:45p Infectious Maggie [employer] right finger Diseases E11.9 Type 2 diabetes mellitus without complications M86.141 Other acute osteomyelitis, right hand 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 at [facility] Oihkzhxm40/02/2019 - Kulwant Young MDL03.011 Cellulitis of right fingerFollow up:Follow up: 2 efacoG06.89 Encounter for other orthopedic aftercare
--- OUTSIDE RECORDS SUMMARY | 2018-12-15 23:07 | XMS REPORT | Continuity of Care Document ---
:1955 External Reference #:[id number] Author Name Lesley Madera Care Team Providers Name Role Phone Carlos Sands MD Primary Care Physician Unavailable Payers Date Identification Numbers Payment Provider Subscriber Policy Number: [id number] Medicare Kerri Kessler PayID: [id number] [address] [place] [address] Policy Number: [id number] BS Facets Kerri Kessler PayID: [id number] [address] [address] [place] [address] Problems Active Problems Provider Date Cellulitis of right finger Kulwant Young MD Onset: 11/11/2018 Family History Date Family Member(s) Observation Comments General Cancer Social History Type Date Description Comments Sex Unknown Lives With Alone Occupation Retired Tobacco Use Start: Unknown Patient is a current smoker, smokes every day Smoking Status Reviewed: 12/07/18 Patient is a current smoker, smokes every day Exercise Type/Frequency Exercises regularly Allergies, Adverse Reactions, Alerts Active Allergies Reaction Severity Comments Date Cephalexin vomitting 11/11/2018 Medications Active Medications SIG Qnty Indications Ordering Provider Date [place] 1 tabs by mouth 21tabs Kulwant Falcon 11/18/2018 5-325mg Tablets every 8 hours as MD Hector needed for pain Metformin HCL take 1 tablet by Unknown 1000mg mouth twice a day Tablets with meals Vancomycin HCL 1250mg iv every Unknown 1gm 12 hours through [facility] end date 12/10 per [facility] orders History Medications Oxycodone-Acetaminophen Unknown - 12/06/2018 5-325mg Tablets Clindamycin HCL 300mg Unknown - 2018 Capsules Vital Signs Date Vital Result Comment 12/07/2018 9:44am Height 64 inches 5'4" Weight [...] Date Facility Test Result H/L Range Note Comp Metabolic Panel 12/06/2018 [facility] Sodium 136 mmol/L N 135-145 [address] [place] [address] [phone] Potassium 4.6 mmol/L N 3.5-5.0 Chloride 106 [...] Egfr Non- 102.6 >60 Egfr 124.2 >60 1 Laboratory test 12/06/2018 [facility] Vancomycin Trough 12.1 g /mL [address] [place] [address] [phone] C Reactive Protein 2.64 mg/L N <8.01 CBC Auto Diff 12/06/2018 [facility] White Blood 4.9 10^3/uL N 3.5-10.[address] [place] [address] [phone] Red Blood Count 5.01 10^6/uL High 3.70-4.87 [...] Cells % 0.0 CBC Auto Diff 11/29/2018 [facility] White Blood 8.4 10^3/uL N 3.5-10.[address] [place] [address] [phone] Red Blood Count 5.11 10^6/uL High 3.70-4.87 [...] Cells % 0.1 Comp Metabolic Panel 11/29/2018 [facility] Sodium 136 mmol/L N 135-[address] [place] [address] [phone] Potassium 4.6 mmol/L N 3.5-5.0 Chloride 104 [...] Egfr Non- 127.1 >60 Egfr 153.8 >60 3 Laboratory test 11/29/2018 [facility] Vancomycin Trough 11.6 g /mL [address] [place] [address] [phone] C Reactive Protein 1.23 mg/L N <8.01 CBC Auto Diff 11/22/2018 [facility] White Blood 9.0 10^3/uL N 3.5-10.[address] [place] [address] [phone] Red Blood Count 4.86 10^6/uL N 3.70-4.87 [...] Cells % 0.1 Comp Metabolic Panel 11/22/2018 [facility] Sodium 138 mmol/L N 135-[address] [place] [address] [phone] Potassium 4.4 mmol/L N 3.5-5.0 Chloride 106 [...] Egfr Non- 100.6 >60 Egfr 121.8 >60 5 Laboratory test 11/22/2018 [facility] Vancomycin Trough 13.0 g /mL finding [address] [place] [address] [phone] C Reactive Protein 2.39 mg/L N <8.01 Laboratory test 11/13/2018 [facility] Point of Care 202 mg/dL High 70-100 [address] [place] [address] [phone] Laboratory test 11/13/2018 [facility] Point of Care 178 mg/dL High 70-100 [address] [place] [address] [phone] 1 Because ethnic data is not always [...] 5 Kidney failure <15 (or dialysis) 6 Political Aide: [id number] 7 Political Aide: [id number] Procedures Date Code Description Status 11/13/2018 20971 Arthrotomy,W/Expolr,Drainage,Or Removal Foreign Completed Interphalan JT 11/13/2018 94551 Arthrotomy,W/Expolr,Drainage,Or Removal Foreign Completed Interphalan JT 11/13/2018 98656 Drainage Of Finger Abscess;Complicated Eg Felon Completed 11/13/2018 77188 Drainage Of Finger Abscess;Complicated Eg Felon Completed Encounters Type Date Location Provider Dx Diagnosis Office Visit 11/17/2018 [facility] Amando L03.011 Cellulitis of 12:45p Infectious Serrano, [employer] right finger Diseases E11.9 Type 2 diabetes mellitus without complications M86.141 Other acute osteomyelitis, right hand 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 M79.644 Pain in right finger(s) Office Visit 11/11/2018 [facility] Kulwant Falcon L03.011 Cellulitis of 1:45p [facility] A[facility] Young MD right finger Office Visit 08/28/2018 [facility] Nurys Chavez MD M79.605 Pain in left leg 11:34a Assoc, Hospitalists R60.0 Localized edema Plan of Treatment Future Appointment(s):12/21/2018 10:50 am - Fritz Kirk M.D. at [facility] For Infectious Rljnzdkk12/16/2019 10:00 am - Kulwant Young MD at [facility]11/30/2018 - Kulwant Young MDL03.011 Cellulitis of right fingerFollow up:Follow up: 2 ljlrgO12.89 Encounter for other orthopedic aftercare
--- OUTSIDE RECORDS SUMMARY | 2018-12-15 23:07 | XMS REPORT | Continuity of Care Document ---
:1955 External Reference #:[id number] Author Name Joleen Martines Care Team Providers Name Role Phone Carlos Sands MD Primary Care Physician Unavailable Payers Date Identification Numbers Payment Provider Subscriber Policy Number: [id number] BS Facets Kerri Kessler PayID: [id number] [address] [address] [place] [address] Problems Active Problems Provider Date Cellulitis of right finger Kulwant Young MD Onset: 11/11/2018 Family History Date Family Member(s) Observation Comments General Cancer Social History Type Date Description Comments Sex Unknown Lives With Alone Occupation Retired Tobacco Use Start: Unknown Patient is a current smoker, smokes every day Smoking Status Reviewed: 11/23/18 Patient is a current smoker, smokes every day Exercise Type/Frequency Exercises regularly Allergies, Adverse Reactions, Alerts Active Allergies Reaction Severity Comments Date Cephalexin vomitting 11/11/2018 Medications Active Medications SIG Qnty Indications Ordering Provider Date [place] 1 tabs by mouth 21tabs Kulwant Falcon 11/18/2018 5-325mg Tablets every 8 hours as MD Hector needed for pain Oxycodone-Acetaminoph Unknown en 5-325mg Tablets Clindamycin HCL Unknown 300mg Capsules Metformin HCL take 1 tablet by Unknown 1000mg mouth twice a Tablets day with meals Vital Signs Date Vital Result Comment 11/23/2018 10:31am Height 64 inches 5'4" Heart [...] Result H/L Range Note CBC Auto Diff 11/22/2018 [facility] White Blood 9.0 10^3/uL N 3.5-10.[address] [place] [address] [phone] Red Blood Count 4.86 10^6/uL N 3.70-4.87 [...] Cells % 0.1 Comp Metabolic Panel 11/22/2018 [facility] Sodium 138 mmol/L N 135-[address] [place] [address] [phone] Potassium 4.4 mmol/L N 3.5-5.0 Chloride 106 [...] Egfr Non- 100.6 >60 Egfr 121.8 >60 1 Laboratory test 11/22/2018 [facility] Vancomycin Trough 13.0 g /mL finding [address] [place] [address] [phone] C Reactive Protein 2.39 mg/L N <8.01 Laboratory test 11/13/2018 [facility] Point of Care 202 mg/dL High 70-100 [address] [place] [address] [phone] Laboratory test 11/13/2018 [facility] Point of Care 178 mg/dL High 70-100 [address] [place] [address] [phone] 1 Because ethnic data is not always [...] 5 Kidney failure <15 (or dialysis) 2 Law Clerk: [id number] 3 Law Clerk: [id number] Procedures Date Code Description Status 11/13/2018 32903 Arthrotomy,W/Expolr,Drainage,Or Removal Foreign Completed Interphalan JT 11/13/2018 03819 Arthrotomy,W/Expolr,Drainage,Or Removal Foreign Completed Interphalan JT 11/13/2018 78839 Drainage Of Finger Abscess;Complicated Eg Felon Completed 11/13/2018 54701 Drainage Of Finger Abscess;Complicated Eg Felon Completed Encounters Type Date Location Provider Dx Diagnosis Office Visit 11/12/2018 [facility] Jamari Browning03.011 Cellulitis of 2:00p [facility] M.Jen. right finger M79.644 Pain in right finger(s) Office Visit 08/28/2018 11:34a [facility] Nurys Chavez MD M79.605 Pain in left Assoc, Hospitalists leg R60.0 Localized edema Plan of Treatment 11/23/2018 - Kulwant Young MDL03.011 Cellulitis of right fingerFollow up: Follow up: 1 weekZ47.89 Encounter for other orthopedic aftercare
[2018-12-16 00:29] VITALS: BP 169/86
== END 2018-12-16 00:28 | disposition left against medical advice (07) ==
LOC: ED 22:51
DX: Z53.21 Procedure and treatment not carried out due to patient leaving prior to being seen by health care provider (principal)
CPT/HCPCS: 99282

== ENCOUNTER → 2018-12-21 15:31 | Emergency (ER) | payer MEDICARE, BC ==
[2018-12-21 15:38] VITALS: BP 138/101
--- OUTSIDE RECORDS SUMMARY | 2018-12-21 15:54 | XMS REPORT | Continuity of Care Document ---
:1955 External Reference #:[id number] Author Name Lesley Madera Care Team Providers Name Role Phone Carlos Sands MD Primary Care Physician Unavailable Payers Date Identification Numbers Payment Provider Subscriber Policy Number: [id number] Medicare Kerri Kessler PayID: [id number] [address] [place] [address] Policy Number: [id number] [employer]ets Kerri Kessler PayID: [id number] [address] [address] [place] [address] Problems Active Problems Provider Date Cellulitis of right finger Kulwant Young MD Onset: 11/11/2018 Family History Date Family Member(s) Observation Comments General Cancer Social History Type Date Description Comments Sex Unknown Lives With Alone Occupation Retired Tobacco Use Start: Unknown Patient is a current smoker, smokes every day Smoking Status Reviewed: 12/21/18 Patient is a current smoker, smokes every day Exercise Type/Frequency Exercises regularly Allergies, Adverse Reactions, Alerts Active Allergies Reaction Severity Comments Date Cephalexin vomitting 11/11/2018 Medications Active Medications SIG Qnty Indications Ordering Provider Date Doxycycline Hyclate 1 cap by mouth 30caps M86.141 Fritz D. 12/21/2018 twice a day with Farrah Kirk 100mg Capsules food Ibuprofen 1 by mouth twice 30tabs Fritz D. 12/14/2018 400mg Tablets daily as needed Farrah Kirk for pain [place] 1 tabs by mouth 10tabs Kulwant Falcon 11/18/2018 5-325mg Tablets every 12 hours as MD Hector needed for pain Metformin HCL take 1 tablet by Unknown 1000mg mouth twice a day Tablets with meals Vancomycin HCL 1250mg iv every Unknown 1gm 12 hours through [facility] History Medications Oxycodone-Acetaminophen Unknown - 12/06/2018 5-325mg Tablets Clindamycin HCL 300mg Unknown - 2018 Capsules Vital Signs Date Vital Result Comment 12/21/2018 11:39am Height 64 inches 5'4" Weight 137.38 lb Heart Rate 84 /min BP Systolic Sitting 164 mmHg BP Diastolic Sitting 76 mmHg Respiratory Rate 14 /min Body Temperature 97.9 F BMI (Body Mass Index) 23.6 kg/m2 12/15/2018 1:37pm Height 64 inches 5'4" Weight [...] Result H/L Range Note CBC Auto Diff 12/20/2018 [facility] White Blood 12.5 10^3/uL High 3.5-10.[address] [place] [address] [phone] Red Blood Count 4.86 10^6/uL N 3.70-4.87 Hemoglobin 15.3 g/dL N 12.0-16.0 Hematocrit 44 % N 35-47 Mean Corpuscular Volume 91 fL N 80-97 Mean Corpuscular Hemoglobin 31 pg N 27-31 Mean Corpuscular HGB Conc 35 g/dL N 31-36 Red Cell Distribution Width 14 % N 10-15 Platelet Count 260 10^3/uL N 150-450 Mean Platelet Volume 9.6 fL N 7.4-10.4 Abs Neutrophils 9.1 10^3/uL High 1.5-7.7 Abs Lymphocytes 2.1 10^3/uL N 1.0-4.8 Abs Monocytes 1.0 10^3/uL High 0-0.8 Abs Eosinophils 0.1 10^3/uL N 0-0.6 Abs Basophils 0.2 10^3/uL N 0-0.2 Abs Nucleated RBC 0.0 10^3/uL Granulocyte % 72.5 % Lymphocyte % 16.8 % Monocyte % 8.2 % Eosinophil % 1.1 % Basophil % 1.4 % Nucleated Red Blood Cells % 0.0 Comp Metabolic Panel 12/20/2018 [facility] Sodium 136 mmol/L N 135-[address] [place] [address] [phone] Chloride 104 mmol/L N 101-111 Co2 Carbon Dioxide 23 mmol/L N 22-32 Glucose 176 mg/dL High 70-100 Blood Urea Nitrogen 12 mg/dL N 6-24 Creatinine 0.66 mg/dL N 0.51-0.95 BUN/Creatinine Ratio 18.2 N 8-20 Calcium 10.3 mg/dL N 8.6-10.3 Total Protein 6.4 g/dL N 6.4-8.9 Albumin 4.5 g/dL N 3.2-5.2 Globulin 1.9 g/dL Low 2-4 Albumin/Globulin Ratio 2.4 N 1-3 Total Bilirubin 0.70 mg/dL N 0.2-1.0 Alkaline Phosphatase 73 U/L N 34-104 Alt 14 U/L N 7-52 Egfr Non- 89.9 >60 Egfr 108.8 >60 1 Potassium 3.9 mmol/L N 3.5-5.0 Anion Gap 9 mmol/L N 2-11 Ast 19 U/L N 13-39 Laboratory test 12/20/2018 [facility] Vancomycin Trough 21.8 g /mL [address] [place] [address] [phone] C Reactive Protein 2.56 mg/L N <8.01 CBC Auto Diff 2018 [facility] White Blood 7.8 10^3/uL N 3.5-10.[address] [place] [address] [phone] Red Blood Count 4.93 10^6/uL High 3.70-4.87 [...] Cells % 0.1 Comp Metabolic Panel 2018 [facility] Sodium 137 mmol/L N 135-[address] [place] [address] [phone] Potassium 4.1 mmol/L N 3.5-5.0 Chloride 103 [...] Egfr Non- 89.9 >60 Egfr 108.8 >60 3 Laboratory test 2018 [facility] Vancomycin Trough 13.7 g /mL 4 finding [address] [place] [address] [phone] C Reactive Protein 4.28 mg/L N <8.01 Comp Metabolic Panel 12/06/2018 [facility] Sodium 136 mmol/L N 135-145 [address] [place] [address] [phone] Potassium 4.6 mmol/L N 3.5-5.0 Chloride 106 [...] Egfr Non- 102.6 >60 Egfr 124.2 >60 5 Laboratory test 12/06/2018 [facility] Vancomycin Trough 12.1 g /mL [address] [place] [address] [phone] C Reactive Protein 2.64 mg/L N <8.01 CBC Auto Diff 12/06/2018 [facility] White Blood 4.9 10^3/uL N 3.5-10.[address] [place] [address] [phone] Red Blood Count 5.01 10^6/uL High 3.70-4.87 [...] % Nucleated Red Blood Cells % 0.0 Laboratory test 11/29/2018 [facility] Vancomycin Trough 11.6 g /mL 7 [address] [place] [address] [phone] C Reactive Protein 1.23 mg/L N <8.01 Comp Metabolic Panel 11/29/2018 [facility] Sodium 136 mmol/L N 135-145 [address] [place] [address] [phone] Potassium 4.6 mmol/L N 3.5-5.0 Chloride 104 [...] Egfr Non- 127.1 >60 Egfr 153.8 >60 8 CBC Auto Diff 11/29/2018 [facility] White Blood 8.4 10^3/uL N 3.5-10.[address] [place] [address] [phone] Red Blood Count 5.11 10^6/uL High 3.70-4.87 [...] % Nucleated Red Blood Cells % 0.1 CBC Auto Diff 11/22/2018 [facility] White Blood 9.0 10^3/uL N 3.5-10.[address] [place] [address] [phone] Red Blood Count 4.86 10^6/uL N 3.70-4.87 [...] Cells % 0.1 Comp Metabolic Panel 11/22/2018 [facility] Sodium 138 mmol/L N 135-[address] [place] [address] [phone] Potassium 4.4 mmol/L N 3.5-5.0 Chloride 106 [...] Egfr Non- 100.6 >60 Egfr 121.8 >60 9 Laboratory test 11/22/2018 [facility] Vancomycin Trough 13.0 g /mL finding [address] [place] [address] [phone] C Reactive Protein 2.39 mg/L N <8.01 Laboratory test 11/13/2018 [facility] Point of Care 202 mg/dL High 70-100 [address] [place] [address] [phone] Laboratory test 11/13/2018 [facility] Point of Care 178 mg/dL High 70-100 [address] [place] [address] [phone] 1 Because ethnic data is not always [...] Meningitis 10-15 for All Other Infections 7 15-20 for HCAP, VAP, Osteomyelitis, Endocarditis, Meningitis 10-15 for All Other Infections 8 Because ethnic data is not always readily [...] 15-29 5 Kidney failure <15 (or dialysis) 9 Because ethnic data is not always readily [...] 15-29 5 Kidney failure <15 (or dialysis) 10 Flotation Tender: [id number] Flotation Tender: [id number] Procedures Date Code Description Status 12/15/2018 51701 Debridement Skin,& sq Tissue Completed 11/13/2018 37589 Arthrotomy,W/Expolr,Drainage,Or Removal Foreign Completed Interphalan JT 11/13/2018 79861 Arthrotomy,W/Expolr,Drainage,Or Removal Foreign Completed Interphalan JT 11/13/2018 78351 Drainage Of Finger Abscess;Complicated Eg Felon Completed 11/13/2018 20442 Drainage Of Finger Abscess;Complicated Eg Felon Completed Encounters Type Date Location Provider Dx Diagnosis Office Visit 12/07/2018 [facility] Barry Jorgensen L03.011 Cellulitis of 9:50a Infectious Farrah Kirk right finger Diseases M86.141 Other acute osteomyelitis, right hand Z79.2 long-term (current) use of antibiotics T82.594A [facility] compl of infusion catheter, initial encounter E11.69 Type 2 diabetes mellitus with other specified complication Office Visit 11/17/2018 [facility] Kellie Goel L03.011 Cellulitis of 12:45p For Infectious Serrano, [employer] right finger Diseases E11.9 Type 2 diabetes mellitus without complications M86.141 Other acute osteomyelitis, right hand 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, right hand Office Visit 11/13/2018 [facility] L03.011 Cellulitis of 10:35a Assoc,pc Kristopher, [place] right finger Hospitalists E11.9 Type 2 diabetes mellitus without complications E78.5 Hyperlipidemia, unspecified F31.9 Bipolar disorder, unspecified Office Visit 11/12/2018 2:00p Orthopedic Lorenza Mitchell L03.011 Cellulitis of Services Of Farrah right finger C.MTimmy M79.644 Pain in right finger(s) Office Visit 11/11/2018 [facility] Kulwant Falcon L03.011 Cellulitis of 1:45p Services Of Arian Young MD right finger Office Visit 08/28/2018 [facility] Nurys Chavez MD M79.605 Pain in left leg 11:34a [facility]oc[facility] Hospitalists R60.0 Localized edema Plan of Treatment Future Appointment(s):01/21/2019 10:10 am - Fritz Kirk M.D. at [facility] For Infectious Eguuwrtw68/06/2019 11:00 am - Kulwant Young MD at [facility]12/21/2018 - Fritz Kirk M.D.M86.141 Other acute osteomyelitis, right handNew Medication:Doxycycline Hyclate 100 mg - 1 cap by mouth twice a day with foodComments:overall much improved, to finish vancomycin this week, then doxycycline for 2 weeksFollow up:1 [id number] intermediate card tender (current) use of antibiotics
== END | disposition left against medical advice (07) ==
LOC: ED 15:31
DX: R03.0 Elevated blood-pressure reading, without diagnosis of hypertension (principal); L98.9 Disorder of the skin and subcutaneous tissue, unspecified; Z53.21 Procedure and treatment not carried out due to patient leaving prior to being seen by health care provider
CPT/HCPCS: 99281

== ENCOUNTER 2018-12-28 17:08 | Emergency (ER) | payer MEDICARE, BC ==
[2018-12-28 18:21] LABS: Hematocrit 46 % (35-47); Hemoglobin 15.5 g/dL (12.0-16.0); Mean Corpuscular HGB Conc 34 g/dL (31-36); Mean Corpuscular Hemoglobin 31 pg (27-31); Mean Corpuscular Volume 91 fL (80-97); Mean Platelet Volume 9.9 fL (7.4-10.4); Platelet Count 232 10^3/uL (150-450); Red Blood Count 5.06 10^6 /uL (3.70-4.87); Red Cell Distribution Width 13 % (10-15)
[2018-12-28 18:38] LABS: Albumin 4.4 g/dL (3.2-5.2); BUN/Creatinine Ratio 16.2 (8-20); C Reactive Protein 5.27 mg/L (<8.01); Calcium 10.6 mg/dL (8.6-10.3); EGFR African American 95.3 (>60); EGFR Non-African American 78.8 (>60); Globulin 2.2 g/dL (2-4); Total Bilirubin 0.5 mg/dL (0.2-1.0); Total Protein 6.6 g/dL (6.4-8.9)
[2018-12-28 18:44] LABS: ABS Basophils 0.1 10^3/ul (0-0.2); ABS Eosinophils 0.3 10^3/ul (0-0.6); ABS Lymphocytes 2.9 10^3/ul (1.0-4.8); ABS Neutrophils 7.6 10^3/ul (1.5-7.7); Eosinophil % 2.7 %; Lymphocyte % 24.5 %; Nucleated Red Blood Cells % 0.1
[2018-12-28 19:51] LABS: Potassium 4.7 mmol/L (3.5-5.0)
--- NOTE | 2018-12-28 19:59 | ED ---
Complex/Multi-Sys Presentation - HPI Summary HPI Summary: Patient states she had a high ammonia level at a visit to [place] ED 2 months ago. Patient states she was told it can cause brain damage and she has been concerned since. Denies any pain, symptoms or injury. Just wants repeat ammonia level. History of anxiety. - History Of Current Complaint Chief Complaint: EDGeneral Time Seen by Provider: 12/28/18 17:39 Hx Obtained From: Patient Severity Currently: None - Allergies/Home Medications Allergies/Adverse Reactions: Allergies Allergy/AdvReac Type Severity Reaction Status Date / Time cephalexin [From Keflex] Allergy Swelling Verified 12/28/18 17:18 Of Face,Lips,& Throat PMH/Surg Hx/FS Hx/Imm Hx Endocrine/Hematology History: Reports: Hx Diabetes Cardiovascular History: Denies: Hx Pacemaker/ICD Respiratory History: Reports: Hx Pneumonia - pt reports 5 years ago Denies: Hx Asthma - pt denies History: Denies: Hx Dialysis Musculoskeletal History: Reports: Hx Back Problems Denies: Hx Arthritis, Hx Scoliosis Sensory History: Reports: Hx Contacts or Glasses Denies: Hx Eye Prosthesis, Hx Legally Blind, Hx Deafness, Hx Hearing Aid Opthamlomology History: Reports: Hx Contacts or Glasses Denies: Hx Eye Prosthesis, Hx Legally Blind Neurological History: Reports: Other Neuro Impairments/Disorders - Pt reports 2 concussions in childhood Denies: Hx Headaches Psychiatric History: Reports: Hx Inpatient Treatment - 2019- unknown exact dates Denies: Hx Anxiety, Hx Autism, Hx Eating Disorder, Hx Depression, Hx Suicide Attempt, Hx of Violent Episodes Against Others - Surgical History Surgery Procedure, Year, and Place: Calcium growth removal on back-4th grade. Tubal ligation-1986. Colonoscopy-july 2018 Infectious Disease History: No Infectious Disease History: Reports: Hx of Known/Suspected MRSA Denies: Traveled Outside the [place] in Last 30 Days - Family History Known Family History: Positive: Non-Contributory - Social History Alcohol Use: Rare Substance Use Type: Reports: None Hx Tobacco Use: No Smoking Status (MU): Current Every Day Smoker Type: Cigarettes Amount Used/How Often: 1/2-1 PACK DAY Have You Smoked in the Last Year: Yes Review of Systems Constitutional: Negative Eyes: Negative ENT: Negative Cardiovascular: Negative Respiratory: Negative Gastrointestinal: Negative Genitourinary: Negative Musculoskeletal: Negative Skin: Negative Neurological: Negative Psychological: Normal All Other Systems Reviewed And Are Negative: Yes Physical Exam Triage Information Reviewed: Yes Vital Signs On Initial Exam: Initial Vitals Temp Pulse Resp BP Pulse Ox 97.8 F 96 16 149/90 97 12/28/18 17:10 12/28/18 17:10 12/28/18 17:10 12/28/18 17:10 12/28/18 17:10 Vital Signs Reviewed: Yes Appearance: Positive: Well-Appearing Skin: Positive: Warm Head/Face: Positive: Normal Head/Face Inspection Eyes: Positive: Normal Neck: Positive: Supple Respiratory/Lung Sounds: Positive: Clear to Auscultation Cardiovascular: Positive: Normal Abdomen Description: Positive: Nontender Musculoskeletal: Positive: Normal Neurological: Positive: Normal Psychiatric: Positive: Normal AVPU Assessment: Alert - [place] Coma Scale Best Eye Response: 4 - Spontaneous Best Motor Response: 6 - Obeys Commands Best Verbal Response: 5 - Oriented Coma Scale Total: 15 Diagnostics - Vital Signs Vital Signs Temp Pulse Resp BP Pulse Ox 12/28/18 17:10 97.8 F 96 16 149/90 97 - Laboratory Lab Results: Lab Results 12/28/18 12/28/18 12/28/18 Range/Units 18:15 18:15 18:15 WBC 12.0 H (3.5-10.8) 10^3/uL RBC 5.06 H (3.70-4.87) 10^6 /uL Hgb 15.5 (12.0-16.0) g/dL Hct 46 (35-47) % MCV 91 (80-97) fL MCH 31 (27-31) pg MCHC 34 (31-36) g/dL RDW 13 (10-15) % Plt Count 232 (150-450) 10^3/uL MPV 9.9 (7.4-10.4) fL Neut % (Auto) 63.7 % Lymph % (Auto) 24.5 % [place] % (Auto) 7.9 % Eos % (Auto) 2.7 % Baso % (Auto) 1.2 % Absolute Neuts (auto) 7.6 (1.5-7.7) 10^3/ul Absolute Lymphs (auto) 2.9 (1.0-4.8) 10^3/ul Absolute Monos (auto) 1.0 H (0-0.8) 10^3/ul Absolute Eos (auto) 0.3 (0-0.6) 10^3/ul Absolute Basos (auto) 0.1 (0-0.2) 10^3/ul Absolute Nucleated RBC 0.0 10^3/ul Neutrophils % 65.0 % Lymphocytes % 18.0 % Reactive Lymphs % 1.0 (0-6) % Monocytes % 10.0 % Eosinophils % 3.0 % Basophils % 3.0 % Nucleated RBC % 0.1 Normal RBC Morphology Normal (Normal) Hem Pathologist Commnt Pending Sodium 134 L (135-145) mmol/L Potassium 4.7 (3.5-5.0) mmol/L Chloride 101 (101-111) mmol/L Carbon Dioxide 27 (22-32) mmol/L Anion Gap 6 (2-11) mmol/L BUN 12 (6-24) mg/dL Creatinine 0.74 (0.51-0.95) mg/dL Est GFR ( Amer) 95.3 (>60) Est GFR (Non-Af Amer) 78.8 (>60) BUN/Creatinine Ratio 16.2 (8-20) Glucose 189 H (70-100) mg/dL Calcium 10.6 H (8.6-10.3) mg/dL Total Bilirubin 0.50 (0.2-1.0) mg/dL AST 25 (13-39) U/L ALT 33 (7-52) U/L Alkaline Phosphatase 72 (34-104) U/L Ammonia 48 (16-53) mcmol/L C-Reactive Protein 5.27 (<8.01) mg/L Total Protein 6.6 (6.4-8.9) g/dL Albumin 4.4 (3.2-5.2) g/dL Globulin 2.2 (2-4) g/dL Albumin/Globulin Ratio 2.0 (1-3) Result Diagrams: 12/28/18 18:15 12/28/18 18:15 Lab Statement: Any lab studies that have been ordered have been reviewed, and results considered in the medical decision making process. Complex Multi-Symp Course/Dx Course Of Treatment: Patient states she had a high ammonia level at a visit to [place] ED 2 months ago. Patient states she was told it can cause brain damage and she has been concerned since. Denies any pain, symptoms or injury. Just wants repeat ammonia level. History of anxiety. Patient states she saw her PCP and was told to come to the ED. Discussed patient with primary care doctor Juvenal states she saw patient for 15 minutes before patient walked out on her and that she was never able to do a repeat ammonia level. Ammonia level today within normal limits. Vital signs within normal limits. Other labs within normal limits. - Diagnoses Provider Diagnoses: Routine lab draw Discharge - Sign-Out/Discharge Documenting (check all that apply): Patient Departure Patient Received Moderate/Deep Sedation with Procedure: No - Discharge Plan Condition: Stable Disposition: HOME Referrals: Carlos Sands MD [Primary Care Provider] - Additional Instructions: Follow-up with primary care. Return to the ED for any new or worsening symptoms. - Billing Disposition and Condition Condition: STABLE Disposition: Home - Attestation Statements Provider Attestation: I am administratively signing this document. I was available for consultation for this patient. I did not evaluate the patient, did not have a doctor/patient relationship with the patient, or participate in any medical decision making or disposition decisions unless I am specifically named in the chart as having consulted on the patient. If I have consulted on the patient, please see my own ED note on the patient encounter. Blanca Saleh MD
[2018-12-28 20:09] VITALS: BP 158/71
== END 2018-12-28 20:08 | disposition home or self-care (01) ==
LOC: ED 17:08
DX: Z00.00 Encounter for general adult medical examination without abnormal findings (principal); E11.9 Type 2 diabetes mellitus without complications; Z88.1 Allergy status to other antibiotic agents; F17.210 Nicotine dependence, cigarettes, uncomplicated
CPT/HCPCS: 36415; 80053; 82140; 85025; 85060; 86140; 99281

== ENCOUNTER 2019-01-03 09:14 | Inpatient (IN) | payer MEDICARE, OTHER ==
--- NOTE | 2019-01-03 09:41 | ED ---
Altered Mental Status - HPI Summary HPI Summary: Patient is a 63-year-old female presenting to the ED by way of EMS. Patient states her sons called the ambulance to take her here because "I was out all night." She states she had an argument with her 2 sons so subsequently walked over to the neighbors and stayed there overnight under a tree. She states she was walking back up to her own home when EMS took her here to the hospital. She does admit to having very high ammonia levels which she is seeing Dr. Burgos for at [facility]. She has also been prescribed risperidone by Dr. Arthur which she states she will not take d/t side effects. She is currently on metformin. She denies any suicidal or homicidal ideation. - History Of Current Complaint Chief Complaint: EDAltMentalStatus Stated Complaint: MHE PER EMS Time Seen by Provider: 01/03/19 09:18 Hx Obtained From: Patient, EMS, Medical Records Onset/Duration: Still Present Timing: Constant Severity Initially: Mild Severity Currently: Mild Character: Confusion Aggravating Factor(s): Nothing Alleviating Factor(s): Nothing Associated Signs And Symptoms: Positive: Negative - Risk Factors Cardiac Risk Factors: Negative CVA Risk Factor: Negative - Allergies/Home Medications Allergies/Adverse Reactions: Allergies Allergy/AdvReac Type Severity Reaction Status Date / Time cephalexin [From Keflex] Allergy Swelling Verified 12/28/18 17:18 Of Face,Lips,& Throat Home Medications: Home Medications DOXYcycline CAP(*) [DOXYcycline 100MG CAP(*)] 100 mg PO BID 01/03/19 [History Confirmed 01/03/19] metFORMIN* [Glucophage 500 MG TAB *] 1,000 mg PO BID 01/03/19 [History Confirmed 01/03/19] PMH/Surg Hx/FS Hx/Imm Hx Previously Healthy: Yes Endocrine/Hematology History: Reports: Hx Diabetes Cardiovascular History: Denies: Hx Pacemaker/ICD Respiratory History: Reports: Hx Pneumonia - pt reports 5 years ago Denies: Hx Asthma - pt denies History: Denies: Hx Dialysis Musculoskeletal History: Reports: Hx Back Problems Denies: Hx Arthritis, Hx Scoliosis Sensory History: Reports: Hx Contacts or Glasses Denies: Hx Eye Prosthesis, Hx Legally Blind, Hx Deafness, Hx Hearing Aid Opthamlomology History: Reports: Hx Contacts or Glasses Denies: Hx Eye Prosthesis, Hx Legally Blind Neurological History: Reports: Other Neuro Impairments/Disorders - Pt reports 2 concussions in childhood Denies: Hx Headaches Psychiatric History: Reports: Hx Inpatient Treatment - 2019- unknown exact dates Denies: Hx Anxiety, Hx Autism, Hx Eating Disorder, Hx Depression, Hx Suicide Attempt, Hx of Violent Episodes Against Others - Surgical History Surgery Procedure, Year, and Place: Calcium growth removal on back-4th grade. Tubal ligation-1986. Colonoscopy-july 2018 - Immunization History Hx Pertussis Vaccination: No Immunizations Up to Date: Yes Infectious Disease History: Yes Infectious Disease History: Reports: Hx of Known/Suspected MRSA Denies: Traveled Outside the US in Last 30 Days - Family History Known Family History: Positive: Non-Contributory - Social History Occupation: Unemployed Lives: Alone Alcohol Use: Rare Hx Substance Use: No Substance Use Type: Reports: None Hx Tobacco Use: No Smoking Status (MU): Current Every Day Smoker Type: Cigarettes Amount Used/How Often: 1/2-1 PACK DAY Have You Smoked in the Last Year: Yes Review of Systems Constitutional: Negative Negative: Fever, Chills, Fatigue, Skin Diaphoresis Negative: Blurred Vision Negative: Chest Pain Negative: Shortness Of Breath, Cough Genitourinary: Negative Positive: no symptoms reported, see HPI Negative: Arthralgia, Myalgia Skin: Negative Negative: Headache, Weakness, Paresthesia, Numbness, Syncope, Slurred Speech Negative: Anxious, Depressed All Other Systems Reviewed And Are Negative: Yes Physical Exam Triage Information Reviewed: Yes Vital Signs On Initial Exam: Initial Vitals Temp Pulse Resp BP Pulse Ox 97.6 F 84 16 140/66 99 01/03/19 09:19 01/03/19 09:19 01/03/19 09:19 01/03/19 09:19 01/03/19 09:19 Vital Signs Reviewed: Yes Appearance: Positive: Cachectic - appears discheveled Skin: Positive: Warm, Skin Color Reflects Adequate Perfusion, Other - disheveled - dirt in fingernails and throughout the bilateral lower ext. Eyes: Positive: EOMI, Conjunctiva Clear Neck: Positive: Supple, No Lymphadenopathy Respiratory/Lung Sounds: Positive: Clear to Auscultation, Breath Sounds Present Cardiovascular: Positive: RRR, Pulses are Symmetrical in both Upper and Lower Extremities Musculoskeletal: Positive: Strength/ROM Intact Neurological: Positive: Sensory/Motor Intact, Alert, Oriented to Person Place, Time, Speech Normal Psychiatric: Positive: Affect/Mood Appropriate Diagnostics - Vital Signs Vital Signs Temp Pulse Resp BP Pulse Ox 01/03/19 09:19 97.6 F 83 16 140/66 99 - Laboratory Result Diagrams: 01/03/19 09:39 01/03/19 09:39 Lab Statement: Any lab studies that have been ordered have been reviewed, and results considered in the medical decision making process. Altered Mental Statu Course/Dx - Course Course Of Treatment: During this course of treatment, the patient's evaluated for altered mental status. Patient does admit to having very high ammonia levels, however she is unsure what it has been caused by. evaluation completed and will be admitted. Dx of Bipolar disorder. Dr. Arthur. - Diagnoses Provider Diagnoses: Bipolar disorder Discharge - Sign-Out/Discharge Documenting (check all that apply): Patient Departure Patient Received Moderate/Deep Sedation with Procedure: No - Discharge Plan Condition: Fair Disposition: ADMITTED TO [facility] Referrals: Carlos Sands MD [Medical Doctor] - - Billing Disposition and Condition Condition: FAIR Disposition: Admitted to [facility]
[2019-01-03 09:48] LABS: ABS Basophils 0.1 10^3/ul (0-0.2); ABS Lymphocytes 1.2 10^3/ul (1.0-4.8); ABS Monocytes 0.7 10^3/ul (0-0.8); ABS Neutrophils 13.2 10^3/ul (1.5-7.7); Hematocrit 45 % (35-47); Hemoglobin 15.2 g/dL (12.0-16.0); Lymphocyte % 8.1 %; Mean Corpuscular HGB Conc 34 g/dL (31-36); Mean Corpuscular Hemoglobin 31 pg (27-31); Mean Corpuscular Volume 91 fL (80-97); Mean Platelet Volume 9.8 fL (7.4-10.4); Platelet Count 239 10^3/uL (150-450); Red Blood Count 4.97 10^6 /uL (3.70-4.87); Red Cell Distribution Width 13 % (10-15); White Blood Count 15.2 10^3/uL (3.5-10.8)
[2019-01-03 10:11] LABS: ALT 31 U/L (7-52); AST 33 U/L (13-39); Albumin 4.4 g/dL (3.2-5.2); Alkaline Phosphatase 72 U/L (34-104); Anion Gap 12 mmol/L (2-11); BUN/Creatinine Ratio 30.9 (8-20); Blood Urea Nitrogen 21 mg/dL (6-24); CO2 Carbon Dioxide 22 mmol/L (22-32); Calcium 10.2 mg/dL (8.6-10.3); Chloride 101 mmol/L (101-111); EGFR African American 105.1 (>60); EGFR Non-African American 86.8 (>60); Globulin 2.2 g/dL (2-4); Glucose 197 mg/dL (70-100); Potassium 3.6 mmol/L (3.5-5.0); Sodium 135 mmol/L (135-145); Total Protein 6.6 g/dL (6.4-8.9)
[2019-01-03 10:30] LABS: Acetaminophen < 15 mcg/mL; Alcohol < 10 mg/dL (<10); Salicylate < 2.50 mg/dL (<30)
[2019-01-03 10:40] LABS: TSH (Thyroid Stimulating Horm) 1.32 mcIU/mL (0.34-5.60)
[2019-01-03] MEDS ORDERED: Bacitracin OINTMENT* 0.5% 0.5 oz TUBE TOPICAL ONE (11:00)
[2019-01-03 11:34] LABS: Urine Appearance Clear; Urine Bilirubin Negative (Negative); Urine Blood Negative (Negative); Urine Color Yellow; Urine Glucose 3+(>=500 mg/dL) (Negative); Urine Ketones 2+ (Negative); Urine Nitrite Negative (Negative); Urine Protein Negative (Negative); Urine Specific Gravity 1.022 (1.010-1.030); Urine Urobilinogen Negative (Negative)
[2019-01-03 11:38] LABS: Urine Benzodiazepine Screen None Detected (None Detect); Urine Opiates Screen None Detected (None Detect)
[2019-01-03] MEDS ORDERED: Acetaminophen TAB* 325 MG PO PRN (15:42)
[2019-01-03] MEDS ORDERED: LORazepam TAB(*) 1 MG PO PRN (15:44)
[2019-01-03] MEDS ORDERED: risperiDONE TAB* 1 MG PO SCH (21:00)
[2019-01-03] MEDS: metFORMIN* 1,000 MG TAB PO SCH (21:13)
[2019-01-03] MEDS: DOXYcycline CAP(*) 100 MG PO SCH (21:14)
[2019-01-03] MEDS: Divalproex DR TAB(*) 250 MG PO SCH (21:15)
[2019-01-03] MEDS: Ibuprofen TAB* 400 MG PO PRN (22:07)
[2019-01-04] MEDS: Ibuprofen TAB* 400 MG PO PRN ×3 (06:05→20:16)
[2019-01-04] MEDS: metFORMIN* 1,000 MG TAB PO SCH ×2 (09:05→20:13)
[2019-01-04] MEDS: DOXYcycline CAP(*) 100 MG PO SCH ×2 (09:05→20:12)
[2019-01-04] MEDS: Divalproex DR TAB(*) 250 MG PO SCH ×2 (09:05→20:15)
[2019-01-04] MEDS: Lactulose* 15 ML UDC PO SCH ×2 (14:04→20:13)
--- NOTE | 2019-01-04 14:16 | HP ---
PSYCHIATRIC HISTORY AND PHYSICAL: DATE OF ADMISSION: 01/03/19 JUSTIFICATION FOR ADMISSION: The patient is in need of 24-hour supervision and care due to inability to care for herself in a less restrictive setting. CHIEF COMPLAINT: "I know I am not crazy, you ought to see what my brother is doing to me." HISTORY OF PRESENT ILLNESS: The patient is a 63-year-old white female with several involunt martínez psychiatric hospitalizations over the past year who was brought in by police following an extensi ve search of the community after she stormed out of her house when her son was trying to bring her to the hospital for mental health evaluation. Apparently, she has been extremely paranoid and delusion al. She had been out of treatment for several months, but had recently reengaged with [facility], but had not started medications yet. Her 2 sons who live locally were both c oncerned enough to come to her house to try to coax her into coming to the hospital, but after marty jones agreeing to come in for an evaluation, she hopped out of her son's truck and disappeared into the . 911 was called and a police search ensued in which helicopter was used to try to locate her. She apparently slept in the that night and was later discovered sleeping under a neighbor's t ree. Her skin was covered with excoriations and she has been poorly taking care of an abscess on her right finger which required recent surgery. On evaluation in the emergency room, she was tearful an d felt betrayed by her sons. She endorsed experiences of people watching her and listening to her co nversations. She believes that her brother has done things to their family property to make it worth less money. She has quoted it saying "he poisoned the hardwoods, drove metal wedges into them so th ey can't be cut down, and he planted a tree that will take over and kill all the good vegetation on t he land." She does have an MRSA wound on her right pointer finger, which she has not been taking car e of. When I met with her, she continued to endorse paranoid thoughts. She had the mistaken belief that I had recently called her in an antipsychotic prescription to her pharmacy, and when I told her that this was not me, she appeared to see this as evidence of some type of conspiracy throwing up her hands and walking away from our conversation prematurely. For collateral information, I reached her son, Torrey Reyes. He indicates that after being discharged from our hospital for a similar scenari o in August 2018, she was briefly hospitalized at [facility], then rehospitalize d in [place] for psychiatric issues, and hospitalized psychiatrically again in [place]. At some point, she developed a finger abscess and she received opioid pain medications, and they said that while taking these, her mentation seemed to come back to normal and they thought that she was b stacie. When she discontinued pain medicines, her psychiatric functioning seemed to get worse and the y have been trying to get her to engage at [facility]. PAST PSYCHIATRIC HISTORY: The patient never had any known prior mental illness until the age of 62, although she did admit to being depressed several times during her child-rearing years. Her first ho spitalization was in [place] at a facility called [facility]. She was there for 10 days and treated with unknown medications and then discharged sometime in the early months of this year. Thereafter, she returned to the [place] area and was hospitalized here at [facility] in late July 2018. Thereafter, she had a brief hospitalization at [facility], 1 in [place], and 1 in [facility]. SUBSTANCE ABUSE HISTORY: The patient has limited alcohol use, but smokes 1 pack of cigarettes per da y and denies illicit drug abuse. PAST MEDICAL HISTORY: Significant for diabetes, elevated blood ammonia levels, and an MRSA abscess o n her right index finger. CURRENT MEDICATIONS: Include: 1. Metformin 1000 mg b.i.d. 2. Doxycycline 100 mg b.i.d. ALLERGIES: She is allergic to CEPHALEXIN. FAMILY HISTORY: The patient had a mother who was extremely volatile with violence and mood problems, but never diagnosed with formal mental illness. SOCIAL HISTORY: The patient was born in [place], raised in [place] to an intact family. Her ol sherman brother with whom she is estranged and does not get along with resides here in [place]. She has b een twice, twice. She has 3 sons, the first two from the first marriage and the thi rd from the second marriage; their ages are 42, 40, and 31. 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 She graduated from high school and then had [employer]. Currently, she is single, but not sexually active. She self identifies as spiritual, b ut not bahai. She has no history of service and does not own fire arms. She was appare ntly arrested in the [place] area and subsequently sent to a psychiatric facility. Currently, she lives alone in [place], [place]. REVIEW OF SYSTEMS: The patient is complaining of pain in her right index finger. She denies headache or double vision. She denies sore throat, cough, chest pain, difficulty breathing. She denies abdo erika pain, nausea, vomiting, diarrhea, or constipation. She denies difficulty ambulating, enlarged lymph nodes, fevers, rashes, or changes in weight. PHYSICAL EXAMINATION VITAL SIGNS: Blood pressure 129/61, heart rate 69, respiratory rate 16, temperature 97.8 degrees Fah renheit, oxygen saturation is 97% on room air. HEENT: Head is normocephalic, atraumatic. NECK: Supple. CHEST: Clear to auscultation bilaterally. CARDIAC: Exam reveals normal heart sounds. ABDOMEN: Soft and nontender. MUSCULOSKELETAL: Exam reveals no sign of edema. NEUROLOGIC: She is grossly intact with no focal deficits. SKIN: Warm and dry. DIAGNOSTIC STUDIES/LAB DATA: White blood cells are slightly elevated at 15.2, absolute neutrophils elevated at 13.2. Chemistries demonstrate elevated glucose of 197. Ammonia is elevated at 62. Urin e shows 2+ ketones and 3+ glucose. Urine drug screen is negative for all substances tested. MENTAL STATUS EXAM: The patient is an aging white female, dressed in blue scrubs with a green blanke t draped over her shoulders. I see that her right index finger is covered with gauze and sterile govind ssings. She appears to be somewhat psychomotor agitated. Her speech is hyperverbal and pressured. She is easy to initially establish a rapport with; however, she becomes somewhat hostile as the inter view goes on, appearing to be somewhat suspicious of this observer at times. Mood appears to be manic with an expansive, somewhat labile affect. Thought process is tangential. Thought content is signi ficant for paranoid delusions that people are spying on her and that her brother is trying to spoil h er family's property. She denies suicidal or homicidal ideations. She denies auditory or visual troy lucinations. Insight and judgement are markedly impaired given her recent behavior of arguing with leeann padilla and trying to escape into the . Cognitively, she is awake and alert with what appeared to be an average intellect. DIAGNOSES: [place] I: Bipolar disorder type 1, current episode manic, severe with psychotic features. A xis II: Deferred. IMPRESSION: The patient is a 63-year-old white female with several recent psychiatric hospi talizations in multiple states who arrives after an incident in which she fled from her family into [facility] and stayed outside all night, being found later under a neighbor's tree in a state of manic psychosis. The patient has not been adherent with treatment following her most recent discharge from [facility] in August of this year, and although she recently reconnected with [facility], she had not been resumed on psychiatric medications up until this point. PLAN: The patient is admitted to the adult behavioral health unit where she is placed on q.15 minute checks for her own safety. I will resume therapy with Depakote 250 mg p.o. b.i.d. Because of side effects from Risperdal, we will change her to olanzapine 5 mg nightly. We will continue metformin an d doxycycline as previously prescribed. Because her ammonia is elevated, we will likely recheck this and start her lactulose 15 mL t.i.d. I will postpone hospitalist consultation at this point, but we may need to bring them in if I cannot resolve her ammonia issues. [id number]/[facility] #: [id number]
[2019-01-04] MEDS: OLANzapine TAB* 2.5 MG PO SCH (20:15)
[2019-01-05 07:59] LABS: HDL Cholesterol 46.8 mg/dL
[2019-01-05] MEDS: Divalproex DR TAB(*) 250 MG PO SCH ×2 (08:57→20:43)
[2019-01-05] MEDS: DOXYcycline CAP(*) 100 MG PO SCH ×2 (08:58→20:43)
[2019-01-05] MEDS: Lactulose* 15 ML UDC PO SCH ×3 (08:58→20:45)
[2019-01-05] MEDS: metFORMIN* 1,000 MG TAB PO SCH ×2 (08:58→20:43)
[2019-01-05] MEDS: Ibuprofen TAB* 400 MG PO PRN (09:00)
--- NOTE | 2019-01-05 11:55 | PN ---
Subjective - Subjective Date of Service: 01/05/19 Service Type: 48727 Hosp care 15 min low complexity Subjective: Caden continues to decline her olanzapine and Depakote. "I don't want to take any medicines for my head until this issue with the ammonia is figured out. " She is somewhat somatic and fixated on her finger, swelling feet and ammonia level. The patient remains extremely paranoid about her brother, whom she accuses of sabotaging her and persecuting her in various ways. Objective - General Observations Appearance: Well Groomed Appears Stated Age: Yes Stature: WNL Posture: WNL Eye Contact: Intense Behavior/Activity: Accelerated - Interaction Observations Attitude Towards Examiner: Mistrustful Stated Mood: Irritable Affect: Labile Speech Pattern/Tone: Rambling, Excessive Thought Process: Tangential Thought Content: Paranoid Thought Process: Lethality: Paranoid Ideation Hallucination Type: None Delusion Type: Persecution - Cognitive Function Orientation: A&O x 4 Level of Consciousness: Awake, Alert, Appropriate Cognition: WNL Estimated Intelligence: Normal Insight: Difficulty Acknowledging Presence of Psyciatric Problems Judgment Within Normal Limits: No Ability to Make Reasonable Decisions: Serverely Impaired - Medication Compliance Cooperative with Inpatient Medication Regimen: No - Group Participation Participates in Group Activities: Yes Assessment - Assessment Merits Inpatient Hospitalization: For Immediate Safety, For Stabilization Inpatient DSM-V Dx: F31.2 Clinical Impression: 63 y.o. , white female with a history of bipolar and multiple involuntary psychiatric hospitalizations in several States brought in by police on 9.41 after an episode in which she ran out into the trying to evade her sons and EMS and presents as paranoid and pressured. BSU: Problem List - Patient Problems (1) Bipolar affective, manic, severe w/ psych Current Visit: No Status: Acute Priority: High Code(s): F31.2 - BIPOLAR DISORD, CRNT EPISODE MANIC SEVERE W PSYCH FEATURES SNOMED Code(s): 582618295 Plan - Plan Treatment Plan: Name: CADEN SHELTON Birthdate: 1955 [id number] We are trying to convince her to accept treatment with olanzapine 2.5mg PO qhs and Depakote 250mg PO BID for bipolar renetta, however, she is refusing. We have consulted Hospitalist service for elevated ammonia, for which she is taking lactulose, and finger infection, for which she is taking doxycycline. Will continue to work on her insight. Continued Medication Management: Start Medication Medications: Current Medications Acetaminophen (Tylenol Tab*) 650 mg PO Q4H PRN PRN Reason: for pain; or Temp >101 F Last Admin: 01/03/19 23:45 Dose: 650 mg Al Hydrox/Mg Hydrox/Simethicone (Maalox Plus*) 30 ml PO Q4H PRN PRN Reason: INDIGESTION Divalproex Sodium (Depakote Dr Tab(*)) 250 mg PO BID [facility] Last Admin: 01/05/19 08:57 Dose: Not Given Doxycycline Hyclate (Vibramycin Cap(*)) 100 mg PO BID [facility] Last Admin: 01/05/19 08:58 Dose: 100 mg Ibuprofen (Motrin Tab*) 400 mg PO Q6H PRN PRN Reason: .PAIN Last Admin: 01/05/19 09:00 Dose: 400 mg Lactulose (Lactulose*) 15 ml PO TID [facility] Last Admin: 01/05/19 08:58 Dose: 15 ml Lorazepam (Ativan Tab(*)) 1 mg PO Q6H PRN PRN Reason: ANXIETY Metformin HCl (Glucophage*) 1,000 mg PO BID [facility] Last Admin: 01/05/19 08:58 Dose: 1,000 mg Nicotine Polacrilex (Nicotine Gum*) 2 mg PO Q2H PRN PRN Reason: CRAVING Olanzapine (Zyprexa Tab*) 2.5 mg PO BEDTIME [facility] Last Admin: 01/04/19 20:15 Dose: Not Given - Discharge Plan Discharge Plan: Inpatient Hospitalization Lab Results - Lab Results Lab Results: 01/03/19 01/03/19 01/03/19 09:39 09:39 09:39 WBC 15.2 H RBC 4.97 H Hgb 15.2 Hct 45 MCV 91 MCH 31 MCHC 34 RDW 13 Plt Count 239 MPV 9.8 Neut % (Auto) 86.7 Lymph % (Auto) 8.1 Ocean % (Auto) 4.4 Eos % (Auto) 0.0 Baso % (Auto) 0.8 Absolute Neuts (auto) 13.2 H Absolute Lymphs (auto) 1.2 Absolute Monos (auto) 0.7 Absolute Eos (auto) 0.0 Absolute Basos (auto) 0.1 Absolute Nucleated RBC 0.0 Nucleated RBC % 0.0 Sodium 135 Potassium 3.6 Chloride 101 Carbon Dioxide 22 Anion Gap 12 H BUN 21 Creatinine 0.68 Est GFR ( Amer) 105.1 Est GFR (Non-Af Amer) 86.8 BUN/Creatinine Ratio 30.9 H Glucose 197 H POC Glucose (mg/dL) Hemoglobin A1c Calcium 10.2 Total Bilirubin 0.90 AST 33 ALT 31 Alkaline Phosphatase 72 Ammonia 62 H Total Protein 6.6 Albumin 4.4 Globulin 2.2 Albumin/Globulin Ratio 2.0 Triglycerides Cholesterol LDL Cholesterol HDL Cholesterol TSH 1.32 Urine Color Urine Appearance Urine pH Ur Specific Wallace Urine Protein Urine Ketones Urine Blood Urine Nitrate Urine Bilirubin Urine Urobilinogen Ur Leukocyte Esterase Urine Glucose Salicylates < 2.50 Urine Opiates Screen Acetaminophen < 15 Ur Barbiturates Screen Ur Phencyclidine Scrn Ur Amphetamines Screen U Benzodiazepines Scrn Urine Cocaine Screen U Cannabinoids Screen Serum Alcohol < 10 01/03/19 01/03/19 01/03/19 11:05 11:05 21:12 WBC RBC Hgb Hct MCV MCH MCHC RDW Plt Count MPV Neut % (Auto) Lymph % (Auto) Ocean % (Auto) Eos % (Auto) Baso % (Auto) Absolute Neuts (auto) Absolute Lymphs (auto) Absolute Monos (auto) Absolute Eos (auto) Absolute Basos (auto) Absolute Nucleated RBC Nucleated RBC % Sodium Potassium Chloride Carbon Dioxide Anion Gap BUN Creatinine Est GFR ( Amer) Est GFR (Non-Af Amer) BUN/Creatinine Ratio Glucose POC Glucose (mg/dL) 132 H Hemoglobin A1c Calcium Total Bilirubin AST ALT Alkaline Phosphatase Ammonia Total Protein Albumin Globulin Albumin/Globulin Ratio Triglycerides Cholesterol LDL Cholesterol HDL Cholesterol TSH Urine Color Yellow Urine Appearance Clear Urine pH 5.0 Ur Specific Wallace 1.022 Urine Protein Negative Urine Ketones 2+ A Urine Blood Negative Urine Nitrate Negative Urine Bilirubin Negative Urine Urobilinogen Negative Ur Leukocyte Esterase Negative Urine Glucose 3+(>=500 mg/dl) A Salicylates Urine Opiates Screen None detected Acetaminophen Ur Barbiturates Screen None detected Ur Phencyclidine Scrn None detected Ur Amphetamines Screen None detected U Benzodiazepines Scrn None detected Urine Cocaine Screen None detected U Cannabinoids Screen None detected Serum Alcohol 01/05/19 01/05/19 07:16 07:16 WBC RBC Hgb Hct MCV MCH MCHC RDW Plt Count MPV Neut % (Auto) Lymph % (Auto) Ocean % (Auto) Eos % (Auto) Baso % (Auto) Absolute Neuts (auto) Absolute Lymphs (auto) Absolute Monos (auto) Absolute Eos (auto) Absolute Basos (auto) Absolute Nucleated RBC Nucleated RBC % Sodium Potassium Chloride Carbon Dioxide Anion Gap BUN Creatinine Est GFR ( Amer) Est GFR (Non-Af Amer) BUN/Creatinine Ratio Glucose POC Glucose (mg/dL) Hemoglobin A1c 6.5 H Calcium Total Bilirubin AST ALT Alkaline Phosphatase Ammonia Total Protein Albumin Globulin Albumin/Globulin Ratio Triglycerides 138 Cholesterol 152 LDL Cholesterol 78 HDL Cholesterol 46.8 TSH Urine Color Urine Appearance Urine pH Ur Specific Wallace Urine Protein Urine Ketones Urine Blood Urine Nitrate Urine Bilirubin Urine Urobilinogen Ur Leukocyte Esterase Urine Glucose Salicylates Urine Opiates Screen Acetaminophen Ur Barbiturates Screen Ur Phencyclidine Scrn Ur Amphetamines Screen U Benzodiazepines Scrn Urine Cocaine Screen U Cannabinoids Screen Serum Alcohol
[2019-01-05 12:13] LABS: C Reactive Protein 3.53 mg/L (<8.01)
--- NOTE | 2019-01-05 12:41 | CONS ---
CONSULTATION REPORT: DATE OF CONSULT: 01/05/19 REQUESTING PHYSICIAN: Dr. Arthur. CONSULTING SERVICE: Infectious Disease. REASON FOR CONSULTATION: Right index finger infection. IMPRESSION: 1. Right index finger acute osteomyelitis with tenosynovitis and abscess due to methicillin-resistant Staphylococcus aureus, status post incision and debridement on 11/13/18 and then long course of IV antibiotics, now on oral doxycycline with improvement in pain, swelling, redness, and wound size. She still has decreased flexion, which is expected. 2. Hospital admission with inability to care for self and 24-hour supervision, found to have elevated ammonia level. 3. Allergy to CEPHALEXIN. RECOMMENDATIONS: As the finger infection is improving, we will have her continue doxycycline 100 mg by mouth twice a day, add on C-reactive protein to her recent blood testing, which may help in monitoring. She will continue her soaks for her finger and can continue working on range of motion as directed by Dr. Young. HISTORY OF PRESENT ILLNESS: This is a 63-year-old woman admitted to the hospital with some mental status change. She has recently been treated for right index finger osteomyelitis and abscess, having surgery in October and then long course of IV antibiotics, recently switched to oral treatment. She has had no worsening of the redness, pain, swelling in the right finger and in fact all those things have been slowly improving. She has had a wound on the volar surface and has continued to do 3 times a day soak with decreased size of the wound. She has been working on some range of motion. She has had no trouble with doxycycline, apparently has not been taking it for few days before coming to the hospital. Here she was found to have hemoglobin A1c of 6.5, white count of 15,000, TSH 1.3, ammonia of 60. She has had no fever here. She denies pain elsewhere and no cough or trouble breathing. No dysuria. No abdominal pain or diarrhea. PAST MEDICAL HISTORY: 1. Right index finger infection due to MRSA in 2019. 2. Depression. 3. Type 2 diabetes mellitus. MEDICATIONS: 1. Tylenol. 2. Divalproex. 3. Doxycycline 100 mg by mouth twice a day. 4. Ibuprofen as needed. 5. Metformin twice a day. 6. Olanzapine. 7. Nicotine gum as needed. ALLERGIES: CEPHALEXIN. FAMILY HISTORY: No recurrent infections. 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 She lives by herself. Had recently been in inpatient mental health treatment in [place] after her arrest and had been in the hospital in [place] a couple of months ago. REVIEW OF SYSTEMS: All negative except as noted above to 12-point review. PHYSICAL EXAM: Vital Signs: Temperature 36.5, heart rate 70, respiratory rate 16, blood pressure 144/55, oxygen saturation 99% on room air. In general, she is awake, not in distress. Neurologic: She is oriented x3. Follows all commands. HEENT: There is no conjunctival hemorrhage. Oropharynx without lesions. Neck is supple without mass. Heart is regular rate and rhythm without murmurs, rubs, or gallops. Lungs are clear to auscultation bilaterally. Abdomen: Soft, nontender, nondistended. There are bowel sounds present. There is no right upper quadrant tenderness to palpation. Skin: There is no rash or splinter hemorrhage. Musculoskeletal: Right index finger, there is trace edema. There is no erythema. There is 1 cm size wound with eschar on the volar surface of the tip of her finger. There is no tenderness, crepitus, or fluctuance. DIAGNOSTIC STUDIES/LAB DATA: White blood cell count 15, hemoglobin of 15, platelets 239, creatinine is 0.7. Please see impressions and recommendations as outlined above. Thank you for asking me to see Ms. Kessler in consultation. [id number]/[facility] #: [id number] KRYS
--- NOTE | 2019-01-05 15:47 | PN ---
BSU: Group Therapy Note - Service Type Service Type: [id number] Group Psychotherapy - Medication Education Group: Patient was attentive and participatory in group, and remained in good behavioral control. Patient expressed positive insights regarding relevant treatment interventions. Patient stated understanding of material discussed and had appropriate questions.
[2019-01-05] MEDS: Al Hydrox/Mg Hydrox/Simet LIQ* 30 ML UDC PO PRN (17:27)
[2019-01-05] MEDS: OLANzapine TAB* 2.5 MG PO SCH (20:44)
[2019-01-06] MEDS: DOXYcycline CAP(*) 100 MG PO SCH ×2 (09:39→21:06)
[2019-01-06] MEDS: Al Hydrox/Mg Hydrox/Simet LIQ* 30 ML UDC PO PRN ×2 (09:40→13:57)
[2019-01-06] MEDS: Lactulose* 15 ML UDC PO SCH ×3 (09:40→21:39)
[2019-01-06] MEDS: metFORMIN* 1,000 MG TAB PO SCH ×2 (09:40→21:44)
[2019-01-06] MEDS: Divalproex DR TAB(*) 250 MG PO SCH ×2 (09:43→21:43)
--- NOTE | 2019-01-06 14:02 | PN ---
Subjective - Subjective Date of Service: 01/06/19 Service Type: 15450 Hosp care 15 min low complexity Subjective: Caden continues to refuse psychiatric meds due to somatic fixation on her ammonia levels. We tried to repeat ammonia labs today but apparently the sample was hemolysed and not usable. I spoke with Dr. Reed yesterday who feels like her finger is healing well and we should continue the current management. An ultrasound test of her liver was normal. She ultimately agrees to take medication as a means of getting out of the hospital. Objective - General Observations Appearance: Well Groomed Appears Stated Age: Yes Stature: WNL Posture: WNL Eye Contact: Average Behavior/Activity: WNL - Interaction Observations Attitude Towards Examiner: Cooperative Stated Mood: Irritable Affect: Labile Speech Pattern/Tone: Excessive, Pressured Thought Process: Coherent Perception: WNL Thought Content: WNL Thought Process: Lethality: Paranoid Ideation Hallucination Type: None Delusion Type: Persecution - Cognitive Function Orientation: A&O x 4 Level of Consciousness: Awake, Alert Cognition: WNL Estimated Intelligence: Normal Insight: WNL Judgment Within Normal Limits: Yes Ability to Make Reasonable Decisions: Serverely Impaired - Medication Compliance Cooperative with Inpatient Medication Regimen: No - Group Participation Participates in Group Activities: Yes Assessment - Assessment Merits Inpatient Hospitalization: For Immediate Safety, For Stabilization Inpatient DSM-V Dx: F31.2 Clinical Impression: 63 y.o. , white female with a history of bipolar and multiple involuntary psychiatric hospitalizations in several States brought in by police on 9.41 after an episode in which she ran out into the trying to evade her sons and EMS and presents as paranoid and pressured. BSU: Problem List - Patient Problems (1) Bipolar affective, manic, severe w/ psych Current Visit: No Status: Acute Priority: High Code(s): F31.2 - BIPOLAR DISORD, CRNT EPISODE MANIC SEVERE W PSYCH FEATURES SNOMED Code(s): 155798466 Plan - Plan Treatment Plan: Name: CADEN SHELTON Birthdate: 1955 [id number] We are trying to convince her to accept treatment with olanzapine 2.5mg PO qhs and Depakote 250mg PO BID for bipolar renetta, however, she is refusing. Will repeat ammonia level for which she is taking lactulose, Finger infection is healing nicely on doxycycline. Will continue to work on her insight. Continued Medication Management: Start Medication Medications: Current Medications Acetaminophen (Tylenol Tab*) 650 mg PO Q4H PRN PRN Reason: for pain; or Temp >101 F Last Admin: 01/03/19 23:45 Dose: 650 mg Al Hydrox/Mg Hydrox/Simethicone (Maalox Plus*) 30 ml PO Q4H PRN PRN Reason: INDIGESTION Last Admin: 01/06/19 09:40 Dose: 30 ml Divalproex Sodium (Depakote Dr Tab(*)) 250 mg PO BID [facility] Last Admin: 01/06/19 09:43 Dose: Not Given Doxycycline Hyclate (Vibramycin Cap(*)) 100 mg PO BID [facility] Last Admin: 01/06/19 09:39 Dose: 100 mg Ibuprofen (Motrin Tab*) 400 mg PO Q6H PRN PRN Reason: .PAIN Last Admin: 01/05/19 09:00 Dose: 400 mg Lactulose (Lactulose*) 15 ml PO TID [facility] Last Admin: 01/06/19 09:40 Dose: 15 ml Lorazepam (Ativan Tab(*)) 1 mg PO Q6H PRN PRN Reason: ANXIETY Metformin HCl (Glucophage*) 1,000 mg PO BID [facility] Last Admin: 01/06/19 09:40 Dose: 1,000 mg Nicotine Polacrilex (Nicotine Gum*) 2 mg PO Q2H PRN PRN Reason: CRAVING Olanzapine (Zyprexa Tab*) 2.5 mg PO BEDTIME [facility] Last Admin: 01/05/19 20:44 Dose: Not Given - Discharge Plan Discharge Plan: Inpatient Hospitalization Lab Results - Lab Results Lab Results: 01/03/19 01/05/19 01/05/19 21:12 07:16 07:16 POC Glucose (mg/dL) 132 H Hemoglobin A1c 6.5 H Ammonia C-Reactive Protein 3.53 Triglycerides 138 Cholesterol 152 LDL Cholesterol 78 HDL Cholesterol 46.8 01/05/19 01/06/19 01/06/19 17:10 08:08 09:48 POC Glucose (mg/dL) 82 Hemoglobin A1c Ammonia TNP TNP C-Reactive Protein Triglycerides Cholesterol LDL Cholesterol HDL Cholesterol
[2019-01-06] MEDS: OLANzapine TAB* 2.5 MG PO SCH (21:41)
[2019-01-07] MEDS: Lactulose* 15 ML UDC PO SCH ×3 (09:16→20:42)
[2019-01-07] MEDS: DOXYcycline CAP(*) 100 MG PO SCH ×2 (09:17→20:42)
[2019-01-07] MEDS: Divalproex DR TAB(*) 250 MG PO SCH ×2 (09:18→20:41)
[2019-01-07] MEDS: metFORMIN* 1,000 MG TAB PO SCH (09:18)
[2019-01-07] MEDS: Al Hydrox/Mg Hydrox/Simet LIQ* 30 ML UDC PO PRN ×3 (09:19→20:44)
--- NOTE | 2019-01-07 14:57 | PN ---
Subjective - Subjective Date of Service: 01/07/19 Service Type: 28390 Hosp care 15 min low complexity Subjective: Caden remains labile, becoming tearful and yelling at me upon my insistence that she start taking her Depakote, which she has refused thus far. "I want to know what's causing this ammonia to be so high that it's affecting my brain. I wouldn't even know it if hadn't asked the lady at the desk at Dr. Mariscal. She told me that high ammonia can make you crazy. Why didn't anybody else tell me?" She is adherent with groups and did take olanzapine last night as directed. She denies SI or HI. Objective - General Observations Appearance: Well Groomed Appears Stated Age: No - older Stature: WNL Posture: WNL Eye Contact: Average Behavior/Activity: WNL - Interaction Observations Attitude Towards Examiner: Defensive Stated Mood: Dysphoric Affect: Labile Speech Pattern/Tone: Excessive Thought Process: Over Inclusive Thought Content: Paranoid Thought Process: Lethality: Paranoid Ideation Hallucination Type: None Delusion Type: Persecution - Cognitive Function Orientation: A&O x 4 Level of Consciousness: Awake, Alert, Appropriate Cognition: WNL Estimated Intelligence: Normal Insight: WNL Judgment Within Normal Limits: Yes Ability to Make Reasonable Decisions: Serverely Impaired - Medication Compliance Cooperative with Inpatient Medication Regimen: Partial - Group Participation Participates in Group Activities: Yes Assessment - Assessment Merits Inpatient Hospitalization: For Immediate Safety, For Stabilization Inpatient DSM-V Dx: F31.2 Clinical Impression: 63 y.o. , white female with a history of bipolar and multiple involuntary psychiatric hospitalizations in several States brought in by police on after an episode in which she ran out into the trying to evade her sons and EMS and presents as paranoid and pressured. BSU: Problem List - Patient Problems (1) Bipolar affective, manic, severe w/ psych Current Visit: No Status: Acute Priority: High Code(s): F31.2 - BIPOLAR DISORD, CRNT EPISODE MANIC SEVERE W PSYCH FEATURES SNOMED Code(s): 429765682 Plan - Plan Treatment Plan: Name: CADEN SHELTON Birthdate: 1955 [id number] We are trying to convince her to accept treatment with olanzapine 2.5mg PO qhs and Depakote 250mg PO BID for bipolar renetta, however, she is refusing. Will repeat ammonia level for which she is taking lactulose, Finger infection is healing nicely on doxycycline. Will continue to work on her insight. Continued Medication Management: Start Medication Medications: Current Medications Acetaminophen (Tylenol Tab*) 650 mg PO Q4H PRN PRN Reason: for pain; or Temp >101 F Last Admin: 01/03/19 23:45 Dose: 650 mg Al Hydrox/Mg Hydrox/Simethicone (Maalox Plus*) 30 ml PO Q4H PRN PRN Reason: INDIGESTION Last Admin: 01/07/19 14:06 Dose: 30 ml Divalproex Sodium (Depakote Dr Tab(*)) 250 mg PO BID [facility] Last Admin: 01/07/19 09:18 Dose: Not Given Doxycycline Hyclate (Vibramycin Cap(*)) 100 mg PO BID [facility] Last Admin: 01/07/19 09:17 Dose: 100 mg Ibuprofen (Motrin Tab*) 400 mg PO Q6H PRN PRN Reason: .PAIN Last Admin: 01/05/19 09:00 Dose: 400 mg Lactulose (Lactulose*) 15 ml PO TID [facility] Last Admin: 01/07/19 14:05 Dose: 15 ml Lorazepam (Ativan Tab(*)) 1 mg PO Q6H PRN PRN Reason: ANXIETY Metformin HCl (Glucophage*) 500 mg PO BID [facility] Nicotine Polacrilex (Nicotine Gum*) 2 mg PO Q2H PRN PRN Reason: CRAVING Olanzapine (Zyprexa Tab*) 2.5 mg PO BEDTIME [facility] Last Admin: 01/06/19 21:41 Dose: 2.5 mg - Discharge Plan Discharge Plan: Inpatient Hospitalization Lab Results - Lab Results Lab Results: 01/05/19 01/05/19 01/05/19 07:16 07:16 17:10 POC Glucose (mg/dL) 82 Hemoglobin A1c 6.5 H Ammonia C-Reactive Protein 3.53 Triglycerides 138 Cholesterol 152 LDL Cholesterol 78 HDL Cholesterol 46.8 01/06/19 01/06/19 01/06/19 08:08 09:48 20:53 POC Glucose (mg/dL) Hemoglobin A1c Ammonia TNP TNP 57 H C-Reactive Protein Triglycerides Cholesterol LDL Cholesterol HDL Cholesterol 01/06/19 01/07/19 21:10 09:13 POC Glucose (mg/dL) 140 H 94 Hemoglobin A1c Ammonia C-Reactive Protein Triglycerides Cholesterol LDL Cholesterol HDL Cholesterol
[2019-01-07] MEDS: OLANzapine TAB* 2.5 MG PO SCH (20:42)
[2019-01-07] MEDS: metFORMIN* 500 MG TAB PO SCH (20:42)
[2019-01-08] MEDS: metFORMIN* 500 MG TAB PO SCH ×2 (09:15→20:55)
[2019-01-08] MEDS: DOXYcycline CAP(*) 100 MG PO SCH ×2 (09:16→20:55)
[2019-01-08] MEDS: Lactulose* 15 ML UDC PO SCH ×4 (09:16→22:31)
[2019-01-08] MEDS: Divalproex DR TAB(*) 250 MG PO SCH (09:17)
[2019-01-08] MEDS: Al Hydrox/Mg Hydrox/Simet LIQ* 30 ML UDC PO PRN ×3 (09:18→20:57)
--- NOTE | 2019-01-08 15:53 | PN ---
Subjective - Subjective Date of Service: 01/08/19 Service Type: 86879 Hosp care 15 min low complexity Subjective: Caden refuses Depakote because of fears that it will increase her ammonia levels. She is willing to take an increased dose of olanzapine. She continues to be paranoid towards her brother. She is adherent with unit programming and requesting staff pass. Objective - General Observations Appearance: Well Groomed Appears Stated Age: Yes Stature: WNL Posture: WNL Eye Contact: Average Behavior/Activity: Accelerated - Interaction Observations Attitude Towards Examiner: Cooperative Stated Mood: Expansive Affect: Labile Speech Pattern/Tone: Excessive Thought Process: Tangential Thought Content: Paranoid Thought Process: Lethality: Paranoid Ideation Hallucination Type: None Delusion Type: Persecution - Cognitive Function Orientation: A&O x 4 Level of Consciousness: Awake Cognition: WNL Estimated Intelligence: Normal Insight: Difficulty Acknowledging Presence of Psyciatric Problems Judgment Within Normal Limits: No Ability to Make Reasonable Decisions: Serverely Impaired - Medication Compliance Cooperative with Inpatient Medication Regimen: Partial - Group Participation Participates in Group Activities: Yes Assessment - Assessment Merits Inpatient Hospitalization: For Immediate Safety, For Stabilization Inpatient DSM-V Dx: F31.2 Clinical Impression: 63 y.o. , white female with a history of bipolar and multiple involuntary psychiatric hospitalizations in several States brought in by police on .41 after an episode in which she ran out into the trying to evade her sons and EMS and presents as paranoid and pressured. BSU: Problem List - Patient Problems (1) Bipolar affective, manic, severe w/ psych Current Visit: No Status: Acute Priority: High Code(s): F31.2 - BIPOLAR DISORD, CRNT EPISODE MANIC SEVERE W PSYCH FEATURES SNOMED Code(s): 962331828 Plan - Plan Treatment Plan: Name: CADEN SHELTON Birthdate: 1955 [id number] We will discontinue Depakote and increase olanzapine to 5mg PO qhs. Will repeat ammonia level on Thursday (01/10) for which she is taking lactulose. Finger infection is healing nicely on doxycycline. Will continue to work on her insight. Continued Medication Management: Start Medication Medications: Current Medications Acetaminophen (Tylenol Tab*) 650 mg PO Q4H PRN PRN Reason: for pain; or Temp >101 F Last Admin: 01/03/19 23:45 Dose: 650 mg Al Hydrox/Mg Hydrox/Simethicone (Maalox Plus*) 30 ml PO Q4H PRN PRN Reason: INDIGESTION Last Admin: 01/08/19 14:22 Dose: 30 ml Doxycycline Hyclate (Vibramycin Cap(*)) 100 mg PO BID [facility] Last Admin: 01/08/19 09:16 Dose: 100 mg Ibuprofen (Motrin Tab*) 400 mg PO Q6H PRN PRN Reason: .PAIN Last Admin: 01/05/19 09:00 Dose: 400 mg Lactulose (Lactulose*) 15 ml PO TID [facility] Last Admin: 01/08/19 14:22 Dose: 15 ml Lorazepam (Ativan Tab(*)) 1 mg PO Q6H PRN PRN Reason: ANXIETY Metformin HCl (Glucophage*) 500 mg PO BID [facility] Last Admin: 01/08/19 09:15 Dose: 500 mg Nicotine Polacrilex (Nicotine Gum*) 2 mg PO Q2H PRN PRN Reason: CRAVING Olanzapine (Zyprexa Tab*) 5 mg PO BEDTIME [facility] - Discharge Plan Discharge Plan: Inpatient Hospitalization
[2019-01-08] MEDS: OLANzapine TAB* 5 MG PO SCH (20:55)
[2019-01-09] MEDS: Al Hydrox/Mg Hydrox/Simet LIQ* 30 ML UDC PO PRN ×3 (07:07→20:52)
[2019-01-09] MEDS: DOXYcycline CAP(*) 100 MG PO SCH ×2 (08:48→20:51)
[2019-01-09] MEDS: metFORMIN* 500 MG TAB PO SCH ×2 (08:48→20:51)
[2019-01-09] MEDS: Lactulose* 15 ML UDC PO SCH ×3 (08:48→20:52)
[2019-01-09] MEDS: OLANzapine TAB* 5 MG PO SCH (21:18)
[2019-01-10] MEDS: Ibuprofen TAB* 400 MG PO PRN ×2 (00:19→11:25)
[2019-01-10] MEDS: Al Hydrox/Mg Hydrox/Simet LIQ* 30 ML UDC PO PRN ×3 (09:13→16:03)
[2019-01-10] MEDS: Lactulose* 15 ML UDC PO SCH (09:14)
[2019-01-10] MEDS: DOXYcycline CAP(*) 100 MG PO SCH ×2 (09:17→20:06)
[2019-01-10] MEDS: metFORMIN* 500 MG TAB PO SCH ×2 (09:17→20:06)
--- NOTE | 2019-01-10 11:22 | PN ---
Progress Note - Progress Note Date of Service: 01/10/19 SOAP: Subjective: Ms. Kessler is a 63 yo female with PMH significant for depression, DM2, and right 2nd finger osteomyelitis with tenosynovitis and abscess secondary to MRSA. Denies fever, nausea, vomiting, or constipation. Reports intermittent chills. She has been having diarrhea, too frequent to count, but has been taking Lactulose. She continues to soak the finger 3 times daily. She is feeling better, and has been participating with groups and doing Yoga. Objective: Vital Signs - 8 hr 01/10/19 01/10/19 08:00 09:47 Temperature 98.6 F Pulse Rate 89 Respiratory 16 16 Rate Blood Pressure 138/75 (mmHg) O2 Sat by Pulse 98 Oximetry Physical Exam: General: NAD, sitting up on the side of the bed Neurological: Alert and Oriented x3 HEENT: Moist MM, no thrush Cardiovascular: Heart rate regular Respiratory: Lung sounds clear Abdominal: Bowel sounds present; ABD soft, non tender and non distended MSK: Right 2nd finger with edema and the tip of the 2nd finger is slightly flexed Skin: Slight erythema to the right 2nd finger, there is a small wound to the right 2nd finger between the DIP and MIP joints. The wound base is dry eschar Laboratory Last Values WBC 15.2 10^3/uL (3.5-10.8) H 01/03/19 09:39 RBC 4.97 10^6 /uL (3.70-4.87) H 01/03/19 09:39 Hgb 15.2 g/dL (12.0-16.0) 01/03/19 09:39 Hct 45 % (35-47) 01/03/19 09:39 MCV 91 fL (80-97) 01/03/19 09:39 MCH 31 pg (27-31) 01/03/19 09:39 MCHC 34 g/dL (31-36) 01/03/19 09:39 RDW 13 % (10-15) 01/03/19 09:39 Plt Count 239 10^3/uL (150-450) 01/03/19 09:39 MPV 9.8 fL (7.4-10.4) 01/03/19 09:39 Neut % (Auto) 86.7 % 01/03/19 09:39 Lymph % (Auto) 8.1 % 01/03/19 09:39 [place] % (Auto) 4.4 % 01/03/19 09:39 Eos % (Auto) 0.0 % 01/03/19 09:39 Baso % (Auto) 0.8 % 01/03/19 09:39 Absolute Neuts (auto) 13.2 10^3/ul (1.5-7.7) H 01/03/19 09:39 Absolute Lymphs (auto) 1.2 10^3/ul (1.0-4.8) 01/03/19 09:39 Absolute Monos (auto) 0.7 10^3/ul (0-0.8) 01/03/19 09:39 Absolute Eos (auto) 0.0 10^3/ul (0-0.6) 01/03/19 09:39 Absolute Basos (auto) 0.1 10^3/ul (0-0.2) 01/03/19 09:39 Absolute Nucleated RBC 0.0 10^3/ul 01/03/19 09:39 Nucleated RBC % 0.0 01/03/19 09:39 Sodium 135 mmol/L (135-145) 01/03/19 09:39 Potassium 3.6 mmol/L (3.5-5.0) 01/03/19 09:39 Chloride 101 mmol/L (101-111) 01/03/19 09:39 Carbon Dioxide 22 mmol/L (22-32) 01/03/19 09:39 Anion Gap 12 mmol/L (2-11) H 01/03/19 09:39 BUN 21 mg/dL (6-24) 01/03/19 09:39 Creatinine 0.68 mg/dL (0.51-0.95) 01/03/19 09:39 Est GFR ( Amer) 105.1 (>60) 01/03/19 09:39 Est GFR (Non-Af Amer) 86.8 (>60) 01/03/19 09:39 BUN/Creatinine Ratio 30.9 (8-20) H 01/03/19 09:39 Glucose 197 mg/dL (70-100) H 01/03/19 09:39 POC Glucose (mg/dL) 115 mg/dL (70-100) H 01/07/19 17:07 Hemoglobin A1c 6.5 % (4.0-5.6) H 01/05/19 07:16 Calcium 10.2 mg/dL (8.6-10.3) 01/03/19 09:39 Total Bilirubin 0.90 mg/dL (0.2-1.0) 01/03/19 09:39 AST 33 U/L (13-39) 01/03/19 09:39 ALT 31 U/L (7-52) 01/03/19 09:39 Alkaline Phosphatase 72 U/L (34-104) 01/03/19 09:39 Ammonia 44 mcmol/L (16-53) 01/10/19 07:58 C-Reactive Protein 3.53 mg/L (<8.01) 01/05/19 07:16 Total Protein 6.6 g/dL (6.4-8.9) 01/03/19 09:39 Albumin 4.4 g/dL (3.2-5.2) 01/03/19 09:39 Globulin 2.2 g/dL (2-4) 01/03/19 09:39 Albumin/Globulin Ratio 2.0 (1-3) 01/03/19 09:39 Triglycerides 138 mg/dL 01/05/19 07:16 Cholesterol 152 mg/dL 01/05/19 07:16 LDL Cholesterol 78 mg/dL 01/05/19 07:16 HDL Cholesterol 46.8 mg/dL 01/05/19 07:16 TSH 1.32 mcIU/mL (0.34-5.60) 01/03/19 09:39 Urine Color Yellow 01/03/19 11:05 Urine Appearance Clear 01/03/19 11:05 Urine pH 5.0 (5-9) 01/03/19 11:05 Ur Specific [place] 1.022 (1.010-1.030) 01/03/19 11:05 Urine Protein Negative (Negative) 01/03/19 11:05 Urine Ketones 2+ (Negative) A 01/03/19 11:05 Urine Blood Negative (Negative) 01/03/19 11:05 Urine Nitrate Negative (Negative) 01/03/19 11:05 Urine Bilirubin Negative (Negative) 01/03/19 11:05 Urine Urobilinogen Negative (Negative) 01/03/19 11:05 Ur Leukocyte Esterase Negative (Negative) 01/03/19 11:05 Urine Glucose 3+(>=500 mg/dl) (Negative) A 01/03/19 11:05 Salicylates < 2.50 mg/dL (<30) 01/03/19 09:39 Urine Opiates Screen None detected (None Detect) 01/03/19 11:05 Acetaminophen < 15 mcg/mL 01/03/19 09:39 Ur Barbiturates Screen None detected (None Detect) 01/03/19 11:05 Ur Phencyclidine Scrn None detected (None Detect) 01/03/19 11:05 Ur Amphetamines Screen None detected (None Detect) 01/03/19 11:05 U Benzodiazepines Scrn None detected (None Detect) 01/03/19 11:05 Urine Cocaine Screen None detected (None Detect) 01/03/19 11:05 U Cannabinoids Screen None detected (None Detect) 01/03/19 11:05 Serum Alcohol < 10 mg/dL (<10) 01/03/19 09:39 Assessment: 1. Right Index finger acute osteomyelitis with tenosynovitis and abscess d/t MRSA. S/P I+D 11/13/18, followed by a long course of IV ABX and transitioned to oral ABX. The redness and swelling continue to improve. Continues to have decreased flexion of the DIP joint. CRP is not elevated. Leukocytosis on admission, but not checked since. 2. Elevated ammonia level. Improving with lactulose. 3. DM2 4. Diarrhea. Reports that she is having frequent bowel movements with the lactulose. if she hold a dose, this improves. 5. CEPHALEXIN allergy Plan: Continue Doxycycline 100 mg PO BID. Continue warm water soaks and working with ROM as directed by Dr. Young. Check followup CBC in the AM. Consider decreasing the lactulose and titrate to 3-4 bowel movements daily.
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
[2019-01-10] MEDS: OLANzapine TAB* 5 MG PO SCH (21:43)
[2019-01-11 07:03] LABS: ABS Basophils 0.2 10^3/ul (0-0.2); ABS Eosinophils 0.3 10^3/ul (0-0.6); ABS Lymphocytes 2.2 10^3/ul (1.0-4.8); ABS Monocytes 0.7 10^3/ul (0-0.8); ABS Neutrophils 4.1 10^3/ul (1.5-7.7); Eosinophil % 3.8 %; Hematocrit 47 % (35-47); Lymphocyte % 29.4 %; Mean Corpuscular HGB Conc 34 g/dL (31-36); Mean Corpuscular Hemoglobin 31 pg (27-31); Mean Corpuscular Volume 91 fL (80-97); Mean Platelet Volume 9.5 fL (7.4-10.4); Platelet Count 265 10^3/uL (150-450); Red Blood Count 5.14 10^6 /uL (3.70-4.87); Red Cell Distribution Width 13 % (10-15); White Blood Count 7.6 10^3/uL (3.5-10.8)
[2019-01-11] MEDS: DOXYcycline CAP(*) 100 MG PO SCH ×2 (09:34→21:23)
[2019-01-11] MEDS: metFORMIN* 500 MG TAB PO SCH ×2 (09:34→21:23)
[2019-01-11] MEDS: Ibuprofen TAB* 400 MG PO PRN (11:23)
[2019-01-11] MEDS: Al Hydrox/Mg Hydrox/Simet LIQ* 30 ML UDC PO PRN ×3 (11:59→21:24)
[2019-01-11] MEDS: OLANzapine TAB* 5 MG PO SCH (21:23)
[2019-01-11] MEDS: Lactulose* 15 ML UDC PO SCH (22:12)
[2019-01-12] MEDS: DOXYcycline CAP(*) 100 MG PO SCH ×2 (08:47→21:32)
[2019-01-12] MEDS: metFORMIN* 500 MG TAB PO SCH ×2 (08:47→21:35)
[2019-01-12] MEDS: Al Hydrox/Mg Hydrox/Simet LIQ* 30 ML UDC PO PRN ×4 (08:50→22:07)
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
[2019-01-12] MEDS: Lactulose* 15 ML UDC PO SCH (21:35)
[2019-01-12] MEDS: OLANzapine TAB* 5 MG PO SCH (21:35)
[2019-01-12] MEDS: Ibuprofen TAB* 400 MG PO PRN (21:39)
[2019-01-13] MEDS: DOXYcycline CAP(*) 100 MG PO SCH ×2 (09:06→21:18)
[2019-01-13] MEDS: metFORMIN* 500 MG TAB PO SCH ×2 (09:06→21:18)
[2019-01-13] MEDS: Al Hydrox/Mg Hydrox/Simet LIQ* 30 ML UDC PO PRN ×4 (09:08→21:20)
[2019-01-13] MEDS: Lactobacillus Acidophilus* 1 TAB PO SCH (13:11)
--- NOTE | 2019-01-13 14:34 | PN ---
BSU: Group Therapy Note - Service Type Service Type: [id number] Group Psychotherapy - Group Participation Patient Participating in Group: Yes Level of Group Participation: Attentive, Spontaneously Participate Relatedness to Group: Defended, Suspicious - Kerri participated while eating a snack. She was very defensive when discussing her medications and was also frustrated by the point of view taken about side effects.
[2019-01-13] MEDS: Ibuprofen TAB* 400 MG PO PRN (17:33)
[2019-01-13] MEDS: Lactulose* 15 ML UDC PO SCH (21:18)
[2019-01-13] MEDS: OLANzapine TAB* 5 MG PO SCH (21:18)
[2019-01-14] MEDS: metFORMIN* 500 MG TAB PO SCH ×2 (08:54→22:11)
[2019-01-14] MEDS: DOXYcycline CAP(*) 100 MG PO SCH ×3 (08:54→20:08)
[2019-01-14] MEDS: Al Hydrox/Mg Hydrox/Simet LIQ* 30 ML UDC PO PRN (08:57)
[2019-01-14] MEDS: Lactobacillus Acidophilus* 1 TAB PO SCH (09:55)
--- NOTE | 2019-01-14 14:35 | PN ---
Subjective - Subjective Date of Service: 01/14/19 Service Type: [id number] Hosp care 15 min low complexity Subjective: Caden is once again not able to keep it together during an interview with this clinician. When reminded of the need for a solid discharge plan, in light of the 5 recent psychiatric inpatient admissions she's had across several States , she becomes tearful and angry, accusing me of minimizing her ammonia levels as a cause of her disfunction. Her ammonia level is normal at 44 again this AM. She is resistant to increasing the olanzapine from 5 to 10mg but ultimately accepts this as necessary for us to consider discharge next week. She denies SI or HI but continues to have significant paranoid thoughts towards her brother, whom she accuses of all sorts of misdeeds. Objective - General Observations Appearance: Unkempt Appears Stated Age: No Stature: WNL Posture: WNL Eye Contact: Intense Behavior/Activity: Accelerated - Interaction Observations Attitude Towards Examiner: Hostile Stated Mood: Irritable Affect: Labile Speech Pattern/Tone: Rambling Thought Process: Tangential Perception: WNL Thought Content: Paranoid Thought Process: Lethality: Paranoid Ideation Hallucination Type: None Delusion Type: Persecution - Cognitive Function Orientation: A&O x 4 Level of Consciousness: Awake, Alert, Appropriate Cognition: WNL Estimated Intelligence: Normal Insight: Difficulty Acknowledging Presence of Psyciatric Problems Judgment Within Normal Limits: No Ability to Make Reasonable Decisions: Serverely Impaired - Medication Compliance Cooperative with Inpatient Medication Regimen: Partial - Group Participation Participates in Group Activities: Yes Assessment - Assessment Merits Inpatient Hospitalization: For Immediate Safety, For Stabilization Inpatient DSM-V Dx: F31.2 Clinical Impression: 63 y.o. , white female with a history of bipolar and multiple involuntary psychiatric hospitalizations in several States brought in by police on after an episode in which she ran out into the trying to evade her sons and EMS and presents as paranoid and pressured. BSU: Problem List - Patient Problems (1) Bipolar affective, manic, severe w/ psych Current Visit: No Status: Acute Priority: High Code(s): F31.2 - BIPOLAR DISORD, CRNT EPISODE MANIC SEVERE W PSYCH FEATURES SNOMED Code(s): 891051985 Plan - Plan Treatment Plan: Name: CADEN SHELTON Birthdate: 1955 [id number] The patient is receiving olanzapine 5mg PO qhs. Will increase this to 10mg dose. Ammonia level now normal and we will d/c lactulose, as she has diarrhea. Finger infection is healing nicely on doxycycline. Will continue to work on her insight. Continued Medication Management: Start Medication Medications: Current Medications Acetaminophen (Tylenol Tab*) 650 mg PO Q4H PRN PRN Reason: for pain; or Temp >101 F Last Admin: 01/03/19 23:45 Dose: 650 mg Al Hydrox/Mg Hydrox/Simethicone (Maalox Plus*) 30 ml PO Q4H PRN PRN Reason: INDIGESTION Last Admin: 01/14/19 08:57 Dose: 30 ml Doxycycline Hyclate (Vibramycin Cap(*)) 100 mg PO BID [facility] Last Admin: 01/14/19 09:55 Dose: 100 mg Ibuprofen (Motrin Tab*) 400 mg PO Q6H PRN PRN Reason: .PAIN Last Admin: 01/13/19 17:33 Dose: 400 mg Lactobacillus Rhamnosus (Lactobacillus Acidophilus*) 1 tab PO DAILY [facility] Last Admin: 01/14/19 09:55 Dose: 1 tab Lorazepam (Ativan Tab(*)) 1 mg PO Q6H PRN PRN Reason: ANXIETY Metformin HCl (Glucophage*) 500 mg PO BID [facility] Last Admin: 01/14/19 08:54 Dose: 500 mg Nicotine Polacrilex (Nicotine Gum*) 2 mg PO Q2H PRN PRN Reason: CRAVING Olanzapine (Zyprexa Tab*) 10 mg PO BEDTIME [facility] - Discharge Plan Discharge Plan: Inpatient Hospitalization Lab Results - Lab Results Lab Results: 01/14/19 06:56 Ammonia 44
[2019-01-14] MEDS: OLANzapine TAB* 10 MG PO SCH (22:11)
[2019-01-14] MEDS: Ibuprofen TAB* 400 MG PO PRN (22:56)
[2019-01-15] MEDS: DOXYcycline CAP(*) 100 MG PO SCH ×3 (07:25→20:12)
[2019-01-15] MEDS: metFORMIN* 500 MG TAB PO SCH ×2 (08:51→21:04)
[2019-01-15] MEDS: Lactobacillus Acidophilus* 1 TAB PO SCH (08:51)
[2019-01-15] MEDS: Nicotine* 2MG (FRUIT FLAVOR) GUM PO PRN (09:42)
[2019-01-15] MEDS: Al Hydrox/Mg Hydrox/Simet LIQ* 30 ML UDC PO PRN (09:43)
[2019-01-15] MEDS: OLANzapine TAB* 10 MG PO SCH (21:04)
[2019-01-16] MEDS: DOXYcycline CAP(*) 100 MG PO SCH ×2 (07:00→22:17)
[2019-01-16] MEDS: metFORMIN* 500 MG TAB PO SCH ×2 (09:13→20:32)
[2019-01-16] MEDS: Lactobacillus Acidophilus* 1 TAB PO SCH (09:14)
[2019-01-16] MEDS: Al Hydrox/Mg Hydrox/Simet LIQ* 30 ML UDC PO PRN ×2 (09:15→22:17)
[2019-01-16] MEDS: Ibuprofen TAB* 400 MG PO PRN (09:17)
[2019-01-16] MEDS: Nicotine* 2MG (FRUIT FLAVOR) GUM PO PRN (13:52)
[2019-01-16] MEDS: OLANzapine TAB* 10 MG PO SCH (20:33)
[2019-01-17] MEDS: DOXYcycline CAP(*) 100 MG PO SCH (07:26)
[2019-01-17] MEDS: metFORMIN* 500 MG TAB PO SCH (08:32)
[2019-01-17] MEDS: Lactobacillus Acidophilus* 1 TAB PO SCH (08:32)
[2019-01-17] MEDS: Nicotine* 2MG (FRUIT FLAVOR) GUM PO PRN (08:32)
--- NOTE | 2019-01-17 11:02 | PN ---
Progress Note - Progress Note Date of Service: 01/17/19 SOAP: Subjective: CC: Right 2nd finger osteomyelitis HPI: Ms. Kessler is a 63 yo female with PMH significant for depression, DM2, and right 2nd finger osteomyelitis with tenosynovitis and abscess secondary to MRSA. Denies fever, chills, vomiting, or constipation. She has been having diarrhea, has been taking Lactulose until a day or 2 ago, she feels like this is starting to improve. She continues to soak the finger 3 times daily. She states that the finger started to drain 4-5 days ago, and this continues. She didn't ant to take the dressing off while I was visiting. She feels that the doxycycline may be causing nausea when taken with food, we discussed that people usuallly feel better when taking it with food. She would like to try and take it without food as she feels this will help. Objective: Physical Exam: General: NAD, standing in the halls Neurological: Alert and oriented x4 HEENT: Moist MM, no thrush Cardiovascular: Heart rate regular Respiratory: Lung sounds clear Skin: Dressing to right hand clean, dry and intact, no surrounding erythema ( declined removal of the dressing at this time) Laboratory Last Values WBC 7.6 10^3/uL (3.5-10.8) 01/11/19 06:39 RBC 5.14 10^6 /uL (3.70-4.87) H 01/11/19 06:39 Hgb 16.0 g/dL (12.0-16.0) 01/11/19 06:39 Hct 47 % (35-47) 01/11/19 06:39 MCV 91 fL (80-97) 01/11/19 06:39 MCH 31 pg (27-31) 01/11/19 06:39 MCHC 34 g/dL (31-36) 01/11/19 06:39 RDW 13 % (10-15) 01/11/19 06:39 Plt Count 265 10^3/uL (150-450) 01/11/19 06:39 MPV 9.5 fL (7.4-10.4) 01/11/19 06:39 Neut % (Auto) 54.0 % 01/11/19 06:39 Lymph % (Auto) 29.4 % 01/11/19 06:39 [place] % (Auto) 9.8 % 01/11/19 06:39 Eos % (Auto) 3.8 % 01/11/19 06:39 Baso % (Auto) 3.0 % 01/11/19 06:39 Absolute Neuts (auto) 4.1 10^3/ul (1.5-7.7) 01/11/19 06:39 Absolute Lymphs (auto) 2.2 10^3/ul (1.0-4.8) 01/11/19 06:39 Absolute Monos (auto) 0.7 10^3/ul (0-0.8) 01/11/19 06:39 Absolute Eos (auto) 0.3 10^3/ul (0-0.6) 01/11/19 06:39 Absolute Basos (auto) 0.2 10^3/ul (0-0.2) 01/11/19 06:39 Absolute Nucleated RBC 0.0 10^3/ul 01/11/19 06:39 Nucleated RBC % 0.0 01/11/19 06:39 Sodium 135 mmol/L (135-145) 01/03/19 09:39 Potassium 3.6 mmol/L (3.5-5.0) 01/03/19 09:39 Chloride 101 mmol/L (101-111) 01/03/19 09:39 Carbon Dioxide 22 mmol/L (22-32) 01/03/19 09:39 Anion Gap 12 mmol/L (2-11) H 01/03/19 09:39 BUN 21 mg/dL (6-24) 01/03/19 09:39 Creatinine 0.68 mg/dL (0.51-0.95) 01/03/19 09:39 Est GFR ( Amer) 105.1 (>60) 01/03/19 09:39 Est GFR (Non-Af Amer) 86.8 (>60) 01/03/19 09:39 BUN/Creatinine Ratio 30.9 (8-20) H 01/03/19 09:39 Glucose 197 mg/dL (70-100) H 01/03/19 09:39 POC Glucose (mg/dL) 141 mg/dL (70-100) H 01/11/19 06:27 Hemoglobin A1c 6.5 % (4.0-5.6) H 01/05/19 07:16 Calcium 10.2 mg/dL (8.6-10.3) 01/03/19 09:39 Total Bilirubin 0.90 mg/dL (0.2-1.0) 01/03/19 09:39 AST 33 U/L (13-39) 01/03/19 09:39 ALT 31 U/L (7-52) 01/03/19 09:39 Alkaline Phosphatase 72 U/L (34-104) 01/03/19 09:39 Ammonia 35 mcmol/L (16-53) 01/17/19 06:38 C-Reactive Protein 3.53 mg/L (<8.01) 01/05/19 07:16 Total Protein 6.6 g/dL (6.4-8.9) 01/03/19 09:39 Albumin 4.4 g/dL (3.2-5.2) 01/03/19 09:39 Globulin 2.2 g/dL (2-4) 01/03/19 09:39 Albumin/Globulin Ratio 2.0 (1-3) 01/03/19 09:39 Triglycerides 138 mg/dL 01/05/19 07:16 Cholesterol 152 mg/dL 01/05/19 07:16 LDL Cholesterol 78 mg/dL 01/05/19 07:16 HDL Cholesterol 46.8 mg/dL 01/05/19 07:16 TSH 1.32 mcIU/mL (0.34-5.60) 01/03/19 09:39 Urine Color Yellow 01/03/19 11:05 Urine Appearance Clear 01/03/19 11:05 Urine pH 5.0 (5-9) 01/03/19 11:05 Ur Specific [place] 1.022 (1.010-1.030) 01/03/19 11:05 Urine Protein Negative (Negative) 01/03/19 11:05 Urine Ketones 2+ (Negative) A 01/03/19 11:05 Urine Blood Negative (Negative) 01/03/19 11:05 Urine Nitrate Negative (Negative) 01/03/19 11:05 Urine Bilirubin Negative (Negative) 01/03/19 11:05 Urine Urobilinogen Negative (Negative) 01/03/19 11:05 Ur Leukocyte Esterase Negative (Negative) 01/03/19 11:05 Urine Glucose 3+(>=500 mg/dl) (Negative) A 01/03/19 11:05 Salicylates < 2.50 mg/dL (<30) 01/03/19 09:39 Urine Opiates Screen None detected (None Detect) 01/03/19 11:05 Acetaminophen < 15 mcg/mL 01/03/19 09:39 Ur Barbiturates Screen None detected (None Detect) 01/03/19 11:05 Ur Phencyclidine Scrn None detected (None Detect) 01/03/19 11:05 Ur Amphetamines Screen None detected (None Detect) 01/03/19 11:05 U Benzodiazepines Scrn None detected (None Detect) 01/03/19 11:05 Urine Cocaine Screen None detected (None Detect) 01/03/19 11:05 U Cannabinoids Screen None detected (None Detect) 01/03/19 11:05 Serum Alcohol < 10 mg/dL (<10) 01/03/19 09:39 Assessment: 1. Right Index finger acute osteomyelitis with tenosynovitis and abscess d/t MRSA. S/P I+D 11/13/18, followed by a long course of IV ABX and transitioned to oral ABX. Continues to have decreased flexion of the DIP joint. CRP is not elevated. Leukocytosis on admission, has resolved. Afebrile. 2. DM2. 3. Diarrhea. Starting to improve, suspect secondary to the lactulose she was taking. 4. CEPHALEXIN allergy Plan: Continue Doxycycline 100 mg PO BID. Continue warm water soaks and working with ROM as directed by Dr. Young. Followup with ID outpatient, she has an appointment on ThursdayJanuary 21 at 10:10 am.
[2019-01-17 11:49] VITALS: BP 124/75
--- NOTE | 2019-01-17 13:37 | DS ---
DISCHARGE SUMMARY: DATE OF ADMISSION: 01/03/19 DATE OF DISCHARGE: 01/17/19 DISCHARGE DIAGNOSES: As follows: [place] I: Bipolar disorder type 1, current episode manic, severe, wi th psychotic features. [place] II: Deferred. CONDITION AT THE TIME OF DISCHARGE: Improved. Kerri is tolerating her trial of olanzapine quite w ell. She is far less paranoid and her mood seems to be much more euthymic. She has been able to do well in groups. She is able to talk about her family without getting upset. She is future oriented, talking about tasks such as paying her bills and supporting her sons. The topic of her conversation is very much reality focused. She has been seen this morning by the Infectious Disease Service, who indicates that the infection in her right index finger is improving as she has been adherent with wo und care as well as her oral antibiotic. It is notable that her ammonia levels are even lower this m orning being 35, which demonstrates a marked decrease despite the recent discontinuation of her lactu lose. She is being referred to her outpatient primary care provider at the [facility] for followup on this issue. At this time, Kerri is denying any suicidal or homicidal ideation s. She is eating, drinking, bathing and taking care of herself and we see no further justification f or involuntary treatment. The patient has done well here and is appropriately requesting discharge t o the outpatient setting. She is very much agreeable with following up with outpatient services at [facility]. MENTAL STATUS EXAM: At the time of discharge, the patient is an aging white female, dressed in blue scrubs with her right finger covered with gauze and sterile dressings. There is no evidence of psych omotor agitation and speech has a normal rate, tone, and volume. The patient is easy to establish a rapport with. She is calm and cooperative. Mood is euthymic with full affect. Thought process is l inear and goal directed. Thought content is significant for her desire to be discharged from the [facility]. She is denying suicidal or homicidal ideations, and there is no evidence of gross paranoid th inking. She denies auditory or visual hallucinations. Insight and judgment are fair given her willi ngness to follow up with outpatient services. Cognitively, she is awake and alert with what would ap pear to be an average intellect. LABORATORY DATA: Comprehensive metabolic testing was performed on 01/05/19 revealing a hemoglobin A1 c that was slightly elevated at 6.5, triglycerides 138, cholesterol 152, LDL cholesterol 78, and HDL cholesterol 46.8. DISCHARGE INSTRUCTIONS TO THE PATIENT: As follows: A. Medications: The patient is takin. Olanzapine 10 mg p.o. q.h.s. 2. Metformin 500 mg p.o. b.i.d. 3. Lactobacillus acidophilus 1 tablet p.o. daily. 4. Ibuprofen 400 mg as needed for pain. 5. Doxycycline 100 mg p.o. b.i.d. B. Diet: She is on a diabetic diet. C. Activities: As tolerated. The patient is a smoker and she is not interested in continuing nicot ine replacement therapy. We do provide her with the [facility] Smokers' Quitline, which is toll- free at [phone]. There are no laboratory or diagnostic studies pending at this time. D. Followup care is as follows: The patient has a followup at the [facility] on , 01/20/19, at 3:30 p.m. with clinician, Jane Newton. She also has a followup appointm ent with the Infectious Disease Clinic at [facility], which is for 01/21/19 at 10:10 in the morning. E. Substance abuse followup is nonapplicable. F. Disposition: The patient is returning to her house in [place], [place]. HOSPITAL COURSE: Part A: Reason for admission: The patient is a 63-year-old white female w ith several involuntary psychiatric hospitalizations over the past year, who was brought in by the po lice following an extensive search of the community after she stormed out of her house when her sons were trying to bring her to the hospital for mental health evaluation. Apparently, she has been extr julio c paranoid and delusional recently. She has been out of treatment for several months, but had re cently reengaged with [facility], but had not seen a prescriber there and h ad not resumed medications yet. Her 2 sons who live locally were both concerned enough to come to [facility] to try to coax her into coming to the hospital, but after initially agreeing to come in for a n evaluation, she hopped out of her son's truck and disappeared into the . 911 was called and a police search ensued in which a helicopter was used to try to locate her. She apparently slept in [place] that night under a neighbor's tree. When her sons discovered her, her skin was covered with excoriations and she had been poorly taking care of an abscess on her right finger, which had recent ly required surgery. On evaluation in the emergency room, she was tearful and felt betrayed by her s ons. She endorsed experiences of people watching her and listening to her conversations. She believ es that her brother has done things to their family property to make it worth less money in an effort to undermine her. She quoted as saying "he poisoned the hardwoods, drove metal wedges into them so that they can't be cut down, and he planted a tree that will take over and kill all the good vegetati on on the land." She does have an MRSA wound on her right pointer finger, which she has not been taki ng care of. When I met with her, she continued to endorse paranoid thoughts. She had a mistaken russell ef that I had recently called in a prescription for antipsychotic medication and when I told her that this was not me, she appeared to think that this was evidence of some type of conspiracy, throwing u p her hands and walking away from our conversation prematurely. For collateral information, I reache d her son, Torrey Reyes. He indicates that after being discharged from our hospital for a similar sc enario in August 2018, she was briefly hospitalized at [facility], then rehospit alized in [place] for psychiatric issues, and hospitalized psychiatrically again in [facility]. At some point, she developed a finger abscess and had received opioid pain medications, and they said that while taking these, her cognitive status seemed to improve and they thought she was better ; however, when she discontinued pain medicines, her psychiatric functioning seemed to get worse and they have been trying to get her to engage with services at [facility]. Part B: Psychiatric treatment rendered: The patient was admitted to the [facility] where she was placed on q.15-minute checks for her own safety. We tried to resume risperidone, but she insisted that this had given her elevated heart rate and could not tolerate it. For this reason , it was switched to olanzapine initially at the low dose of 2.5 mg, later titrated to 5 and finally 10 mg nightly. One thing we discovered was that her ammonia was elevated at 60. This prompted us to order a liver ultrasound which was negative as were her liver function tests. With a trial of lactu lose, she developed diarrhea, which resolved when the lactulose was discontinued. Nevertheless, her ammonia went steadily down from 60 to 55 to 44 and ultimately 35. It is uncertain at this time what was causing the elevated ammonia. The patient was seen in consultation by the Infectious Disease Ser vice of Dr. Fritz Reed. He felt that her wound was progressing nicely and continued wound care with warm water soaks and frequent dressing changes. He also kept her on doxycycline 100 mg b.i.d. Once the patient was on antipsychotic therapy, her course of care seemed to improve. She did refuse Depakote therapy, but given the fact that her ammonia level was high, this was understandable and we ultimately discontinued this. On olanzapine, she became far less paranoid, she was able to particip ate well in groups, and she became much more reality focused and euthymic. At this point, she is leslie ropriately requesting discharge wanting to go home so that she can pay bills and make followup appoin tments with her primary care provider at [facility] as well as with the Infectious Diseas e Clinic at [facility]. At this time, I have no further justification for involuntary care and we are disch elijah Manning to outpatient services. [id number]/[facility] #: [id number]
== END 2019-01-17 13:00 | disposition home or self-care (01) | DRG 885 ==
LOC: ED 09:14 → BSU 15:42
PROVIDERS: ADMIT Psychiatry & Neurology Psychiatry; ATTEND Psychiatry & Neurology Psychiatry
PROC: GZHZZZZ Group Psychotherapy (ICD-10-PCS; principal; 2019-01-13)
DX: F31.2 Bipolar disorder, current episode manic severe with psychotic features (principal); E72.20 Disorder of urea cycle metabolism, unspecified; L02.511 Cutaneous abscess of right hand; R64 Cachexia; M86.141 Other acute osteomyelitis, right hand; M65.9 Synovitis and tenosynovitis, unspecified; R19.7 Diarrhea, unspecified; F17.210 Nicotine dependence, cigarettes, uncomplicated; E11.69 Type 2 diabetes mellitus with other specified complication; B95.62 Methicillin resistant Staphylococcus aureus infection as the cause of diseases classified elsewhere; Z88.1 Allergy status to other antibiotic agents; Z81.8 Family history of other mental and behavioral disorders; Z87.01 Personal history of pneumonia (recurrent); Z87.820 Personal history of traumatic brain injury; Z98.51 Tubal ligation status; Z68.23 Body mass index [BMI] 23.0-23.9, adult; Z79.84 Long term (current) use of oral hypoglycemic drugs; Z72.89 Other problems related to lifestyle
CPT/HCPCS: 36415; 76705; 80053; 80061; 80307; 80320; 80329; 81003; 82140; 83036; 84443; 85025; 86140; 90853; 99222; 99231; 99238; 99285; A9270-GY; G0480

== ENCOUNTER 2019-02-11 08:14 | Emergency (ER) | payer MEDICARE, OTHER ==
[2019-02-11] MEDS ORDERED: NS 0.9% 1000 ML** 1,000 ML IV ONE (08:52)
--- OUTSIDE RECORDS SUMMARY | 2019-02-11 08:55 | XMS REPORT | Continuity of Care Document ---
:1955 External Reference #:[id number] Author Name Fritz Kirk M.D. (transmitted by agent of provider Lesley Madera ) Address [address] [place] [address] Care Team Providers Name Role Phone Carlos Sands MD - Internal Care Team Information Supervisor Electronic Testing [phone] Medicine Problems Active Problems Provider Date Cellulitis of right finger Kulwant Young MD Onset: 11/11/2018 Social History Type Date Description Comments Sex Unknown Tobacco Use Start: Unknown Patient is a current smoker, smokes every day Smoking Status Reviewed: 01/21/19 Patient is a current smoker, smokes every day Exercise Type/Frequency Exercises regularly Allergies, Adverse Reactions, Alerts Active Allergies Reaction Severity Comments Date Cephalexin vomitting 11/11/2018 Medications Active Medications SIG Qnty Indications Ordering Provider Date Doxycycline Hyclate 1 cap by mouth 30caps M86.141 Fritz Jorgensen 12/21/2018 twice a day with Farrah Kirk 100mg Capsules food Ibuprofen 1 by mouth twice 30tabs Fritz Jorgensen 12/14/2018 400mg Tablets daily as needed Farrah Kirk for pain [place] 1 tabs by mouth 10tabs Kulwant Falcon 11/18/2018 5-325mg Tablets every 12 hours MD Hector as needed for pain Metformin HCL take 1 tablet by Unknown 500mg mouth twice a Tablets day with meals Olanzapine once daily Julian Arthur, 10mg Tablets M.DHelga Immunizations Description No Information Available Vital Signs Date Vital Result Comment 01/21/2019 10:32am Height 64 inches 5'4" Weight 142.12 lb Heart Rate 84 /min BP Systolic Sitting 152 mmHg BP Diastolic Sitting 72 mmHg Respiratory Rate 14 /min Body Temperature 97.8 F BMI (Body Mass Index) 24.4 kg/m2 12/21/2018 11:39am Height 64 inches 5'4" Weight 137.38 lb Heart Rate 84 /min BP Systolic Sitting 164 mmHg BP Diastolic Sitting 76 mmHg Respiratory Rate 14 /min Body Temperature 97.9 F BMI (Body Mass Index) 23.6 kg/m2 Results Test Date Facility Test Result H/L Range Note CBC Auto Diff 12/20/2018 [facility] White Blood 12.5 10^3/uL High 3.5-10.[address] [place] [address] [phone] Red Blood Count 4.86 10^6/uL Normal 3.70-4.87 Hemoglobin 15.3 g/dL Normal 12.0-16.0 Hematocrit 44 % Normal 35-47 Mean Corpuscular Volume 91 fL Normal 80-97 Mean Corpuscular Hemoglobin 31 pg Normal 27-31 Mean Corpuscular HGB Conc 35 g/dL Normal 31-36 Red Cell Distribution Width 14 % Normal 10-15 Platelet Count 260 10^3/uL Normal 150-450 Mean Platelet Volume 9.6 fL Normal 7.4-10.4 Abs Neutrophils 9.1 10^3/uL High 1.5-7.7 Abs Lymphocytes 2.1 10^3/uL Normal 1.0-4.8 Abs Monocytes 1.0 10^3/uL High 0-0.8 Abs Eosinophils 0.1 10^3/uL Normal 0-0.6 Abs Basophils 0.2 10^3/uL Normal 0-0.2 Abs Nucleated RBC 0.0 10^3/uL Granulocyte % 72.5 % Lymphocyte % 16.8 % Monocyte % 8.2 % Eosinophil % 1.1 % Basophil % 1.4 % Nucleated Red Blood Cells % 0.0 Comp Metabolic 12/20/2018 [facility] Sodium 136 mmol/L Normal 135-[address] [place] [address] [phone] Chloride 104 mmol/L Normal 101-111 Co2 Carbon Dioxide 23 mmol/L Normal 22-32 Glucose 176 mg/dL High 70-100 Blood Urea Nitrogen 12 mg/dL Normal 6-24 Creatinine 0.66 mg/dL Normal 0.51-0.95 BUN/Creatinine Ratio 18.2 Normal 8-20 Calcium 10.3 mg/dL Normal 8.6-10.3 Total Protein 6.4 g/dL Normal 6.4-8.9 Albumin 4.5 g/dL Normal 3.2-5.2 Globulin 1.9 g/dL Low 2-4 Albumin/Globulin Ratio 2.4 Normal 1-3 Total Bilirubin 0.70 mg/dL Normal 0.2-1.0 Alkaline Phosphatase 73 U/L Normal 34-104 Alt 14 U/L Normal 7-52 Egfr Non- 89.9 >60 Egfr 108.8 >60 1 Potassium 3.9 mmol/L Normal 3.5-5.0 Anion Gap 9 mmol/L Normal 2-11 Ast 19 U/L Normal 13-39 Laboratory test 12/20/2018 [facility] Vancomycin Trough 21.8 g /mL 2 finding [address] [place] [address] [phone] C Reactive Protein 2.56 mg/L Normal <8.01 Comp Metabolic 2018 [facility] Sodium 137 mmol/L Normal 135-145 Panel [address] [place] [address] [phone] Potassium 4.1 mmol/L Normal 3.5-5.0 Chloride 103 mmol/L Normal 101-111 Co2 Carbon Dioxide 24 mmol/L Normal 22-32 Anion Gap 10 mmol/L Normal 2-11 Glucose 175 mg/dL High 70-100 Blood Urea Nitrogen 8 mg/dL Normal 6-24 Creatinine 0.66 mg/dL Normal 0.51-0.95 BUN/Creatinine Ratio 12.1 Normal 8-20 Calcium 10.2 mg/dL Normal 8.6-10.3 Total Protein 6.6 g/dL Normal 6.4-8.9 Albumin 4.6 g/dL Normal 3.2-5.2 Globulin 2.0 g/dL Normal 2-4 Albumin/Globulin Ratio 2.3 Normal 1-3 Total Bilirubin 0.70 mg/dL Normal 0.2-1.0 Alkaline Phosphatase 89 U/L Normal 34-104 Alt 13 U/L Normal 7-52 Ast 16 U/L Normal 13-39 Egfr Non- 89.9 >60 Egfr 108.8 >60 3 Laboratory test 2018 [facility] Vancomycin Trough 13.7 g /mL 4 finding [address] [place] [address] [phone] C Reactive Protein 4.28 mg/L Normal <8.01 CBC Auto 2018 [facility] White Blood 7.8 10^3/uL Normal 3.5-10.[address] [place] [address] [phone] Red Blood Count 4.93 10^6/uL High 3.70-4.87 Hemoglobin 15.2 g/dL Normal 12.0-16.0 Hematocrit 45 % Normal 35-47 Mean Corpuscular Volume 92 fL Normal 80-97 Mean Corpuscular Hemoglobin 31 pg Normal 27-31 Mean Corpuscular HGB Conc 34 g/dL Normal 31-36 Red Cell Distribution Width 14 % Normal 10-15 Platelet Count 277 10^3/uL Normal 150-450 Mean Platelet Volume 9.6 fL Normal 7.4-10.4 Abs Neutrophils 3.5 10^3/uL Normal 1.5-7.7 Abs Lymphocytes 2.6 10^3/uL Normal 1.0-4.8 Abs Monocytes 1.0 10^3/uL High 0-0.8 Abs Eosinophils 0.4 10^3/uL Normal 0-0.6 Abs Basophils 0.2 10^3/uL Normal 0-0.2 Abs Nucleated RBC 0.0 10^3/uL Granulocyte % 45.4 % Lymphocyte % 33.7 % Monocyte % 13.1 % Eosinophil % 4.9 % Basophil % 2.9 % Nucleated Red Blood Cells % 0.1 Comp Metabolic 12/06/2018 [facility] Sodium 136 mmol/L Normal 135-[address] [place] [address] [phone] Potassium 4.6 mmol/L Normal 3.5-5.0 Chloride 106 mmol/L Normal 101-111 Co2 Carbon Dioxide 23 mmol/L Normal 22-32 Anion Gap 7 mmol/L Normal 2-11 Glucose 257 mg/dL High 70-100 Blood Urea Nitrogen 10 mg/dL Normal 6-24 Creatinine 0.59 mg/dL Normal 0.51-0.95 BUN/Creatinine Ratio 16.9 Normal 8-20 Calcium 10.0 mg/dL Normal 8.6-10.3 Total Protein 5.9 g/dL Low 6.4-8.9 Albumin 3.9 g/dL Normal 3.2-5.2 Globulin 2.0 g/dL Normal 2-4 Albumin/Globulin Ratio 2.0 Normal 1-3 Total Bilirubin 0.70 mg/dL Normal 0.2-1.0 Alkaline Phosphatase 87 U/L Normal 34-104 Alt 17 U/L Normal 7-52 Ast 17 U/L Normal 13-39 Egfr Non- 102.6 >60 Egfr 124.2 >60 5 Laboratory test 12/06/2018 [facility] Vancomycin Trough 12.1 g /mL [address] [place] [address] [phone] C Reactive Protein 2.64 mg/L Normal <8.01 CBC Auto 12/06/2018 [facility] White Blood 4.9 10^3/uL Normal 3.5-10.[address] [place] [address] [phone] Red Blood Count 5.01 10^6/uL High 3.70-4.87 Hemoglobin 15.7 g/dL Normal 12.0-16.0 Hematocrit 46 % Normal 35-47 Mean Corpuscular Volume 91 fL Normal 80-97 Mean Corpuscular Hemoglobin 31 pg Normal 27-31 Mean Corpuscular HGB Conc 35 g/dL Normal 31-36 Red Cell Distribution Width 14 % Normal 10-15 Platelet Count 198 10^3/uL Normal 150-450 Mean Platelet Volume 10.1 fL Normal 7.4-10.4 Abs Neutrophils 2.1 10^3/uL Normal 1.5-7.7 Abs Lymphocytes 1.5 10^3/uL Normal 1.0-4.8 Abs Monocytes 0.7 10^3/uL Normal 0-0.8 Abs Eosinophils 0.5 10^3/uL Normal 0-0.6 Abs Basophils 0.1 10^3/uL Normal 0-0.2 Abs Nucleated RBC 0.0 10^3/uL Granulocyte % 43.3 % Lymphocyte % 30.3 % Monocyte % 13.7 % Eosinophil % 9.8 % Basophil % 2.9 % Nucleated Red Blood Cells % 0.0 CBC Auto 11/29/2018 [facility] White Blood 8.4 10^3/uL Normal 3.5-10.[address] [place] [address] [phone] Red Blood Count 5.11 10^6/uL High 3.70-4.87 Hemoglobin 15.6 g/dL Normal 12.0-16.0 Hematocrit 47 % Normal 35-47 Mean Corpuscular Volume 92 fL Normal 80-97 Mean Corpuscular Hemoglobin 31 pg Normal 27-31 Mean Corpuscular HGB Conc 33 g/dL Normal 31-36 Red Cell Distribution Width 14 % Normal 10-15 Platelet Count 236 10^3/uL Normal 150-450 Mean Platelet Volume 10.4 fL Normal 7.4-10.4 Abs Neutrophils 5.4 10^3/uL Normal 1.5-7.7 Abs Lymphocytes 2.0 10^3/uL Normal 1.0-4.8 Abs Monocytes 0.5 10^3/uL Normal 0-0.8 Abs Eosinophils 0.3 10^3/uL Normal 0-0.6 Abs Basophils 0.2 10^3/uL Normal 0-0.2 Abs Nucleated RBC 0.0 10^3/uL Granulocyte % 64.0 % Lymphocyte % 24.1 % Monocyte % 5.9 % Eosinophil % 4.0 % Basophil % 2.0 % Nucleated Red Blood Cells % 0.1 Comp Metabolic 11/29/2018 [facility] Sodium 136 mmol/L Normal 135-[address] [place] [address] [phone] Potassium 4.6 mmol/L Normal 3.5-5.0 Chloride 104 mmol/L Normal 101-111 Co2 Carbon Dioxide 25 mmol/L Normal 22-32 Anion Gap 7 mmol/L Normal 2-11 Glucose 214 mg/dL High 70-100 Blood Urea Nitrogen 7 mg/dL Normal 6-24 Creatinine 0.49 mg/dL Low 0.51-0.95 BUN/Creatinine Ratio 14.3 Normal 8-20 Calcium 9.9 mg/dL Normal 8.6-10.3 Total Protein 6.0 g/dL Low 6.4-8.9 Albumin 3.9 g/dL Normal 3.2-5.2 Globulin 2.1 g/dL Normal 2-4 Albumin/Globulin Ratio 1.9 Normal 1-3 Total Bilirubin 0.60 mg/dL Normal 0.2-1.0 Alkaline Phosphatase 86 U/L Normal 34-104 Alt 13 U/L Normal 7-52 Ast 15 U/L Normal 13-39 Egfr Non- 127.1 >60 Egfr 153.8 >60 7 Laboratory test 11/29/2018 [facility] Vancomycin Trough 11.6 g /mL [address] [place] [address] [phone] C Reactive Protein 1.23 mg/L Normal <8.01 CBC Auto 11/22/2018 [facility] White Blood 9.0 10^3/uL Normal 3.5-10.[address] [place] [address] [phone] Red Blood Count 4.86 10^6/uL Normal 3.70-4.87 Hemoglobin 14.8 g/dL Normal 12.0-16.0 Hematocrit 45 % Normal 35-47 Mean Corpuscular Volume 92 fL Normal 80-97 Mean Corpuscular Hemoglobin 31 pg Normal 27-31 Mean Corpuscular HGB Conc 33 g/dL Normal 31-36 Red Cell Distribution Width 14 % Normal 10-15 Platelet Count 284 10^3/uL Normal 150-450 Mean Platelet Volume 10.0 fL Normal 7.4-10.4 Abs Neutrophils 5.7 10^3/uL Normal 1.5-7.7 Abs Lymphocytes 2.0 10^3/uL Normal 1.0-4.8 Abs Monocytes 0.8 10^3/uL Normal 0-0.8 Abs Eosinophils 0.3 10^3/uL Normal 0-0.6 Abs Basophils 0.2 10^3/uL Normal 0-0.2 Abs Nucleated RBC 0.0 10^3/uL Granulocyte % 63.6 % Lymphocyte % 22.1 % Monocyte % 8.4 % Eosinophil % 3.8 % Basophil % 2.1 % Nucleated Red Blood Cells % 0.1 Comp Metabolic 11/22/2018 [facility] Sodium 138 mmol/L Normal 135-[address] [place] [address] [phone] Potassium 4.4 mmol/L Normal 3.5-5.0 Chloride 106 mmol/L Normal 101-111 Co2 Carbon Dioxide 24 mmol/L Normal 22-32 Anion Gap 8 mmol/L Normal 2-11 Glucose 125 mg/dL High 70-100 Blood Urea Nitrogen 4 mg/dL Low 6-24 Creatinine 0.60 mg/dL Normal 0.51-0.95 BUN/Creatinine Ratio 6.7 Low 8-20 Calcium 10.4 mg/dL High 8.6-10.3 Total Protein 6.4 g/dL Normal 6.4-8.9 Albumin 4.1 g/dL Normal 3.2-5.2 Globulin 2.3 g/dL Normal 2-4 Albumin/Globulin Ratio 1.8 Normal 1-3 Total Bilirubin 0.50 mg/dL Normal 0.2-1.0 Alkaline Phosphatase 77 U/L Normal 34-104 Alt 24 U/L Normal 7-52 Ast 20 U/L Normal 13-39 Egfr Non- 100.6 >60 Egfr 121.8 >60 9 Laboratory test 11/22/2018 [facility] Vancomycin Trough 13.0 g /mL finding [address] [place] [address] [phone] C Reactive Protein 2.39 mg/L Normal <8.01 Laboratory test 11/13/2018 [facility] Point of Care 202 mg/dL High 70-100 [address] [place] [address] [phone] Laboratory test 11/13/2018 [facility] Point of Care 178 mg/dL High 70-100 [address] [place] [address] [phone] 1 Because ethnic data is not always [...] 5 Kidney failure <15 (or dialysis) 8 15-20 for HCAP, VAP, Osteomyelitis, Endocarditis, Meningitis 10-15 for All Other Infections 9 Because ethnic data is not always [...] 5 Kidney failure <15 (or dialysis) 10 Railcar Foreman: [id number] 11 Railcar Foreman: [id number] Procedures Date Code Description Status 11/13/2018 11825 Arthrotomy,W/Expolr,Drainage,Or Removal Foreign Completed Interphalan JT 11/13/2018 35798 Arthrotomy,W/Expolr,Drainage,Or Removal Foreign Completed Interphalan JT 11/13/2018 00914 Drainage Of Finger Abscess;Complicated Eg Felon Completed 11/13/2018 86076 Drainage Of Finger Abscess;Complicated Eg Felon Completed Medical Devices Description No Information Available Encounters Type Date Location Provider Dx Diagnosis Office Visit 01/05/2019 [facility] For Fritz Jorgensen M86.141 Other acute 11:09a Effie Kirk M.D. 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 osteomyelitis, Diseases right hand Z79.2 half-way (current) use of antibiotics Office Visit 12/07/2018 9:50a [facility] Fritz Jorgensen L03.011 Cellulitis of For Infectious Farrah Kirk right finger Diseases M86.141 Other acute osteomyelitis, right hand Z79.2 termination clerk (current) use of antibiotics T82.594A [facility] compl of infusion catheter, initial encounter E11.69 Type 2 diabetes mellitus with other specified complication Office Visit 11/17/2018 [facility] Kellie Goel L03.011 Cellulitis of 12:45p For Infectious Maggie, RIDING COACH right finger Diseases E11.9 Type 2 diabetes mellitus without complications M86.141 Other acute osteomyelitis, right hand 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 Amina Johnson L03.011 Cellulitis of 10:36a Assroscoe ambrose M.D. 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 Leonor L03.011 Cellulitis of 10:35a Assocroscoe NP right finger Hospitalists E11.9 Type 2 diabetes mellitus without complications E78.5 Hyperlipidemia, unspecified F31.9 Bipolar disorder, unspecified Office Visit 11/12/2018 2:00p Orthopedic Jamari Browning03.011 Cellulitis of Services Of Farrah right finger Arian M79.644 Pain in right finger(s) Office Visit 11/11/2018 Orthopedic Kulwant Falcon L03.011 Cellulitis of 1:45p Services Of Arian Young MD right finger Office Visit 08/28/2018 [facility] Nurys Chavez MD M79.605 Pain in left leg 11:34a Assoc, Hospitalists R60.0 Localized edema Assessments Date Code Description Provider 01/21/2019 M86.141 Other acute osteomyelitis, right Fritz Kirk M.D. hand 01/05/2019 M86.141 Other acute osteomyelitis, right Fritz Kirk M.D. hand 01/05/2019 M65.9 Synovitis and tenosynovitis, Fritz Kirk M.D. unspecified 01/05/2019 L03.011 Cellulitis of right finger Fritz Kirk M.D. 01/05/2019 B95.62 Methicillin resistant Staphylococcus Fritz Kirk M.D. aureus infection as the cause of diseases classified elsewhere 12/21/2018 M86.141 Other acute osteomyelitis, right Fritz Kirk M.D. hand 12/21/2018 Z79.2 half-way (current) use of Fritz Kirk M.D. antibiotics 12/15/2018 M86.141 Other acute osteomyelitis, right Kulwant Young MD hand 12/15/2018 L03.011 Cellulitis of right finger Kulwant Young MD 12/15/2018 Z79.2 termination clerk (current) use of Kulwant Young MD antibiotics 12/15/2018 Z47.89 Encounter for other orthopedic Kulwant Young MD aftercare 12/07/2018 L03.011 Cellulitis of right finger Fritz Kirk M.D. 12/07/2018 M86.141 Other acute osteomyelitis, right Fritz Kirk M.D. hand 12/07/2018 Z79.2 termination clerk (current) use of Fritz Kirk M.D. antibiotics 12/07/2018 T82.594A Other mechanical complication of Fritz Kirk M.D. infusion catheter, initial 12/07/2018 E11.69 Type 2 diabetes mellitus with other Fritz Kirk M.D. specified complication 11/30/2018 L03.011 Cellulitis of right finger Kulwant Yuong MD 11/30/2018 Z47.89 Encounter for other orthopedic Kulwant Young MD aftercare 11/23/2018 L03.011 Cellulitis of right finger Kulwant Young MD 11/23/2018 Z47.89 Encounter for other orthopedic Kulwant Young MD aftercare 11/17/2018 L03.011 Cellulitis of right finger Amina Johnson M.D. 11/17/2018 L03.011 Cellulitis of right finger Kellie Serrano NP 11/17/2018 Z47.89 Encounter for other orthopedic Amina Johnson M.D. aftercare 11/17/2018 E11.9 Type 2 diabetes mellitus without Kellie Serrano NP complications 11/17/2018 E11.9 Type 2 diabetes mellitus without Amina Johnson M.D. complications 11/17/2018 M86.141 Other acute osteomyelitis, right Kellie Serrano NP hand 11/17/2018 E78.5 Hyperlipidemia, unspecified Amina Johnson M.D. 11/17/2018 B95.62 Methicillin resis staph infct Kellie Serrano NP causing diseases classd elsr 11/17/2018 F31.9 Bipolar disorder, unspecified Amina Johnson M.D. 11/17/2018 K59.00 Constipation, unspecified Amina Johnson M.D. 11/17/2018 R11.0 Nausea Amina Johnson M.D. 11/15/2018 L03.011 Cellulitis of right finger Fritz Kirk M.D. 11/15/2018 E11.9 Type 2 diabetes mellitus without Fritz Kirk M.D. complications 11/15/2018 Z47.89 Encounter for other orthopedic DELL Keating aftercare 11/15/2018 M86.141 Other acute osteomyelitis, right Fritz Kirk M.D. hand 11/15/2018 B95.62 Methicillin resis staph infct Fritz Kirk M.D. 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 11/14/2018 Z47.89 Encounter for other orthopedic Kulwant Young MD aftercare 11/13/2018 L03.011 Cellulitis of right finger Leonor Summers, RIDING COACH 11/13/2018 L03.011 Cellulitis of right finger Vanesa mollyolya, DREC 11/13/2018 E11.9 Type 2 diabetes mellitus without Leonor Summers, RIDING COACH complications 11/13/2018 L03.011 Cellulitis of right finger Kulwant Young MD 11/13/2018 E78.5 Hyperlipidemia, unspecified Leonor Touchsamy, RIDING COACH 11/13/2018 M00.9 Pyogenic arthritis, unspecified Vanesa mollyolya, DREC 11/13/2018 F31.9 Bipolar disorder, unspecified Leonor Summers, RIDING COACH 11/13/2018 M00.9 Pyogenic arthritis, unspecified Kulwant oYung MD 11/13/2018 M86.9 Osteomyelitis, unspecified Vanesa العراقي, DREC 11/13/2018 M86.9 Osteomyelitis, unspecified Kulwant Young MD 11/12/2018 L03.011 Cellulitis of right finger Lorenza Mitchell M.D. 11/12/2018 M79.644 Pain in right finger(s) Lorenza Mitchell M.D. 11/11/2018 L03.011 Cellulitis of right finger Kulwant Young MD 08/28/2018 M79.605 Pain in left leg Nurys Chavez MD 08/28/2018 R60.0 Localized edema Nurys Chavez MD Plan of Treatment 01/21/2019 - Fritz Kirk M.D.M86.141 Other acute osteomyelitis, right handNew Therapy:Physical TherapyComments:finish doxy as rx, follow up with Dr Cervantes and PT Functional Status Description No Information Available Mental Status Description No Information Available Referrals Description No Information Available
[2019-02-11 08:57] LABS: Urine Appearance Cloudy; Urine Bacteria Absent (Absent); Urine Bilirubin Negative (Negative); Urine Blood 3+ (Negative); Urine Glucose 3+(>=500 mg/dL) (Negative); Urine Ketones Negative (Negative); Urine Nitrite Negative (Negative); Urine Protein 2+(100 mg/dL) (Negative); Urine Red Blood Cell 3+(>10/hpf) (Absent); Urine Squamous Epithelial Cell Present (Absent); Urine Urobilinogen Negative (Negative); Urine White Blood Cell 2+(11-20/hpf) (Absent)
[2019-02-11 08:58] LABS: Urine Color Red
[2019-02-11] MEDS ORDERED: Phenazopyridine TAB* 100 MG PO ONE (09:10)
[2019-02-11 09:12] LABS: ABS Basophils 0.1 10^3/ul (0-0.2); ABS Eosinophils 0.1 10^3/ul (0-0.6); ABS Lymphocytes 1.7 10^3/ul (1.0-4.8); ABS Monocytes 1.3 10^3/ul (0-0.8); ABS Neutrophils 15.9 10^3/ul (1.5-7.7); Eosinophil % 0.4 %; Hematocrit 46 % (35-47); Hemoglobin 15.7 g/dL (12.0-16.0); Lymphocyte % 9.1 %; Mean Corpuscular HGB Conc 34 g/dL (31-36); Mean Corpuscular Hemoglobin 31 pg (27-31); Mean Corpuscular Volume 91 fL (80-97); Mean Platelet Volume 9.5 fL (7.4-10.4); Platelet Count 243 10^3/uL (150-450); Red Blood Count 5.09 10^6 /uL (3.70-4.87); Red Cell Distribution Width 13 % (10-15); White Blood Count 19.1 10^3/uL (3.5-10.8)
--- NOTE | 2019-02-11 09:15 | ED ---
GI/ HPI - HPI Summary HPI Summary: Pt is a 63 y/o F presenting to the ED with a chief complaint of urinary sx. She woke up this morning around 0530, then around 0630/0645, she urinated and experienced hematuria with clots. She had a bowel movement and denies blood in stool or nausea. She reports some pain on the L suprapubic part of her abd, lightheadedness, dysuria, and back pain that has since alleviated. Patient denies vomiting. No fevers or chills. Patient denies shortness of breath chest pain. She sees Heather at [facility] and states that they have discussed going off of her medications, which she has been doing, and she states that she is aware of her high Ammonia levels. Medications reviewed this visit. Patient states she is not taking all of her medications as prescribed. - History of Current Complaint Chief Complaint: EDUrogenitalProblems Time Seen by Provider: 02/11/19 08:45 Stated Complaint: PEEING BLOOD PER PT Hx Obtained From: Patient Onset/Duration: Started Hours Ago, Still Present Timing: Constant, Lasting Hours Severity: Moderate Current Severity: Moderate Pain Intensity: 4 Location of Pain: Suprapubic - L Pain Characteristics: Unable to describe Associated Signs and Symptoms: Positive: Back Pain, Hematuria, Dysuria, Lightheadedness, Abdominal Pain. Negative: Nausea, Blood w/Stool Aggravating Factor(s): Nothing Alleviating Factor(s): Nothing - Additional Pertinent History Primary Care Physician: LANE - Allergy/Home Medications Allergies/Adverse Reactions: Allergies Allergy/AdvReac Type Severity Reaction Status Date / Time cephalexin [From Keflex] Allergy Swelling Verified 12/28/18 17:18 Of Face,Lips,& Throat PMH/Surg Hx/FS Hx/Imm Hx Previously Healthy: Yes Endocrine/Hematology History: Reports: Hx Diabetes - type 2 Cardiovascular History: Denies: Hx Pacemaker/ICD Respiratory History: Reports: Hx Pneumonia - pt reports 5 years ago Denies: Hx Asthma - pt denies History: Denies: Hx Dialysis Musculoskeletal History: Reports: Hx Back Problems Denies: Hx Arthritis, Hx Scoliosis Sensory History: Reports: Hx Contacts or Glasses - none with her Denies: Hx Eye Prosthesis, Hx Legally Blind, Hx Deafness, Hx Hearing Aid Opthamlomology History: Reports: Hx Contacts or Glasses - none with her Denies: Hx Eye Prosthesis, Hx Legally Blind Neurological History: Reports: Other Neuro Impairments/Disorders - Pt reports 2 concussions in childhood Denies: Hx Headaches Psychiatric History: Reports: Hx Inpatient Treatment - 2019- unknown exact dates Denies: Hx Anxiety, Hx Autism, Hx Eating Disorder, Hx Depression, Hx Suicide Attempt, Hx of Violent Episodes Against Others - Surgical History Surgery Procedure, Year, and Place: Calcium growth removal on back-4th grade. Tubal ligation-1986. Colonoscopy-july 2018 Infectious Disease History: No Infectious Disease History: Reports: Hx of Known/Suspected MRSA Denies: Traveled Outside the [place] in Last 30 Days - Family History Known Family History: Negative: Cardiac Disease - Social History Alcohol Use: Rare Hx Substance Use: No Substance Use Type: Reports: None Hx Tobacco Use: No Smoking Status (MU): Heavy Every Day Tobacco Smoker Type: Cigarettes Amount Used/How Often: 1/2-1 PACK DAY Have You Smoked in the Last Year: Yes Review of Systems Positive: Abdominal Pain. Negative: Nausea, Other - blood in stool Positive: dysuria, hematuria Positive: Myalgia - back pain Neurological: Other - lightheadedness All Other Systems Reviewed And Are Negative: Yes Physical Exam - Summary Physical Exam Summary: Vital Signs Reviewed: Yes A+Ox3, no distress Eyes: Conjunctiva Clear, TRENA. EOM intact and full ENT: Hearing grossly normal TM x 2 clear, mmoist, uvula midline, no exudate, no erythema Neck: Positive: Supple Respiratory: Positive: No respiratory distress, No accessory muscle use + CTA throughout no w/r Cardiovascular: RRR nl s1, s2 no m/r CBT <2 sec abd soft + BS nd no guarding, no distension mild suprapubic tenderness with direct palpation. No CVA tenderness. Musculoskeletal Exam: PATRIICO x 4 without difficulty Strength Intact, ROM Intact Neurological: Positive: Alert, + sensation throughout Psychological: Positive: Normal Response To examiner Skin: Positive: no rash, no ecchymosis Triage Information Reviewed: Yes Vital Signs On Initial Exam: Initial Vitals Temp Pulse Resp BP Pulse Ox 97 F 95 18 177/115 99 02/11/19 08:15 02/11/19 08:15 02/11/19 08:15 02/11/19 08:15 02/11/19 08:15 Vital Signs Reviewed: Yes Diagnostics - Vital Signs Vital Signs Temp Pulse Resp BP Pulse Ox 02/11/19 08:15 97 F 95 18 177/115 99 - Laboratory Lab Results: Lab Results 02/11/19 Range/Units 08:18 Urine Color Red A Urine Appearance Cloudy Urine pH 6.0 (5-9) Ur Specific [place] 1.010 (1.010-1.030) Urine Protein 2+(100 mg/dl) A (Negative) Urine Ketones Negative (Negative) Urine Blood 3+ A (Negative) Urine Nitrate Negative (Negative) Urine Bilirubin Negative (Negative) Urine Urobilinogen Negative (Negative) Ur Leukocyte Esterase 2+ A (Negative) Urine WBC (Auto) 2+(11-20/hpf) A (Absent) Urine RBC (Auto) 3+(>10/hpf) A (Absent) Ur Squamous Epith Cells Present A (Absent) Urine Bacteria Absent (Absent) Urine Glucose 3+(>=500 mg/dl) A (Negative) Result Diagrams: 02/11/19 09:04 02/11/19 09:04 Lab Statement: Any lab studies that have been ordered have been reviewed, and results considered in the medical decision making process. Re-Evaluation - Re-Evaluation 1st re-eval Re-Evaluation Time: 10:38 Change: Improved Comment: Pt states that she feels slightly better. Her abd pain has decreased and she was able to urinate with minimal discomfort. She reports that the Keflex made her feel "off balance," but denies hives or edema. The tech states patient has facial swelling so we'll do Doxy instead I. She has a followup appointment planned with her PCP on 02/21/19. GIGU Course/Dx - Course Course Of Treatment: Patient presents with urinary symptoms progressive the last 24 hours. Patient also subacute hematuria and lower abdominal pain. Patient also was some report of left back pain. Patient with nausea but no vomiting. No fevers. On exam vital signs are stable. Patient with mild superpubic tenderness. Patient does have some hematuria so we'll check CT labs urine and reassess. Patient states understanding agreement with plan. - Diagnoses Provider Diagnoses: UTI (urinary tract infection), Hematuria Discharge ED - Sign-Out/Discharge Documenting (check all that apply): Patient Departure Patient Received Moderate/Deep Sedation with Procedure: No - Discharge Plan Condition: Stable Disposition: HOME Prescriptions: DOXYcycline CAP(*) [DOXYcycline 100MG CAP(*)] 100 mg PO BID #20 cap Phenazopyridine TAB* [Pyridium 100 mg TAB*] 100 mg PO TID PRN #9 tab PRN Reason: burning with urination Patient Education Materials: Urinary Tract Infection in Women (ED), Hematuria ( ED) Referrals: Ijeoma Sanford MD [Primary Care Provider] - Additional Instructions: - stay well hydrated - drink plenty of non-alcoholic, non caffinated beverages - your urine will be further tested - if you require any changes to your treatment, we will contact you - this usually take 2 days - Contact your primary doctor to arrange a follow-up appointment next week. Contact your doctor or return with questions or concerns - Take your antibiotics exactly as prescribed until gone - Take pyridium as prescribed for discomfort. This will make your urine blaze orange - this is normal - Okay to alternate ibuprofen (Advil, Motrin) every 8 hours as needed with patient. Take with food - Call your doctor or return with questions or concerns - abdominal pain, vomiting, fever, or any other concerns - Billing Disposition and Condition Condition: STABLE Disposition: Home - Attestation Statements Document Initiated by Kalpesh: Yes Documenting Scribe: Myriam Gutierrez Provider For Whom Kalpesh is Documenting (Include Credential): Kathy Bethea MD. Scribe Attestation: Myriam Franklin, scribed for Kathy Bethea MD. on 02/12/19 at 2142. Scribe Documentation Reviewed: Yes Provider Attestation: The documentation as recorded by the sandraibMyriam guerrero accurately reflects the service I personally performed and the decisions made by , Kathy Bethea MD. Status of Scribe Document: Viewed
[2019-02-11 09:21] LABS: INR 1.01 (0.82-1.09)
[2019-02-11 09:28] LABS: Albumin 4.4 g/dL (3.2-5.2); BUN/Creatinine Ratio 22.2 (8-20); Calcium 10.7 mg/dL (8.6-10.3); EGFR African American 114.8 (>60); EGFR Non-African American 94.8 (>60); Globulin 2.2 g/dL (2-4); Potassium 4.3 mmol/L (3.5-5.0); Total Bilirubin 1.3 mg/dL (0.2-1.0); Total Protein 6.6 g/dL (6.4-8.9)
[2019-02-11] MEDS ORDERED: DOXYcycline IV* 100 MG in NS 0.9% 250 ML* 250 ML IVPB ONE (10:40)
[2019-02-11 12:37] VITALS: BP 143/73
--- NOTE | 2019-02-13 06:12 | PN ---
Progress Note - Progress Note Date of Service: 02/11/19 Note: Urine culture preliminary grew Escherichia coli 100,000 Patient was placed on doxycycline prior to discharge We will await sensitivities <Taty Heck - Last Filed: 02/13/19 06:11> Attestation Statement Provider Attestation: This chart was reviewed by the ELIEZER. The patient was not presented to by me. -Kate <Kathy Bethea - Last Filed: 02/15/19 19:58>
--- NOTE | 2019-02-14 05:46 | PN ---
Progress Note - Progress Note Date of Service: 02/14/19 Note: patient was placed on doxycycline which is not sensitive too. will place on cipro with allergy to keflex. cipro 500mg bid x7 days sent to pharmacy. left vm explaining change.
== END 2019-02-11 12:46 | disposition home or self-care (01) ==
LOC: ED 08:14
DX: N39.0 Urinary tract infection, site not specified (principal); R31.9 Hematuria, unspecified; N20.0 Calculus of kidney; K40.20 Bilateral inguinal hernia, without obstruction or gangrene, not specified as recurrent; E11.9 Type 2 diabetes mellitus without complications; F17.210 Nicotine dependence, cigarettes, uncomplicated; Z79.84 Long term (current) use of oral hypoglycemic drugs; Z79.899 Other long term (current) drug therapy; Z88.1 Allergy status to other antibiotic agents
CPT/HCPCS: 36415; 74176; 80053; 81003; 81015; 82140; 83735; 85025; 85610; 87077; 87086; 87186; 96361; 96365; 96366; 99283; A9270-GY